=== PATIENT | female | born 1960 | race African-American/Black ===

== ENCOUNTER 2018-07-16 07:46 | Day surgery (SDC) | payer OTHER ==
[2018-07-13 10:28] LABS: Hematocrit 22.5 % (36.0-45.0)
[2018-07-16] MEDS ORDERED: NA CHLORIDE 0.9% 250 ML ONE ×2 (08:26→11:56)
[2018-07-16 09:11] VITALS: BMI 36.1
[2018-07-16] MEDS ORDERED: FUROSEMIDE 40 MG/4 ML VIAL ONE (11:34)
[2018-07-16 14:26] VITALS: BP 173/70; TEMP 98.2; O2SAT 98
== END 2018-07-16 15:43 | disposition home or self-care (01) ==
LOC: DS 07:46
PROVIDERS: ATTEND Internal Medicine Nephrology
DX: N18.6 End stage renal disease (principal); D63.1 Anemia in chronic kidney disease; Z99.2 Dependence on renal dialysis
CPT/HCPCS: 36415 ×2; 36430; 85014 ×2; 85018 ×2; 86850; 86900; 86901; P9016 ×2

== ENCOUNTER 2021-07-28 11:29 | Day surgery (SDC) | payer OTHER ==
[2021-07-28] MEDS ORDERED: NA CHLORIDE 0.9% 250 ML ONE (14:02)
[2021-07-28 14:33] VITALS: BMI 36.1
[2021-07-28 17:04] VITALS: BP 163/78; TEMP 98; O2SAT 98
[2021-07-28 17:36] LABS: Hematocrit 24.2 % (36.0-45.0)
== END 2021-07-28 17:02 | disposition home or self-care (01) ==
LOC: DS 11:29 → EDSTATUS 13:33 → DS 17:02
PROVIDERS: ATTEND Internal Medicine Nephrology
DX: D64.9 Anemia, unspecified (principal)
CPT/HCPCS: 36415; 86900; 86850; 86901; 85018; 85014; 36430; P9016; J7050

== ENCOUNTER 2021-10-28 18:26 | Emergency (ER) | payer OTHER ==
--- OUTSIDE RECORDS SUMMARY | 2021-10-28 18:30 | XMS REPORT | Continuity of Care Document ---
:1960 Author Organization [facility] t Address [address] [place] [address] Care Team Providers Name Role Phone Pcp, Does Not Have A Primary Care Physician SALENA Attending Clinician Unavailable ANDRY Attending Clinician Unavailable Andry HERNANDEZ Attending Clinician Doctor Unassigned, Name Attending Clinician Unavailable LONDON Attending Clinician Unavailable MD LONDON Attending Clinician Unavailable RIKA Attending Clinician Unavailable DENI Attending Clinician Unavailable MD GITA Attending Clinician Unavailable JOANA Attending Clinician Unavailable ASHLEIGH_Zhao Attending Clinician Unavailable MD JOANA E. Attending Clinician Unavailable Nick_Vicente Attending Clinician Unavailable SALENA Admitting Clinician Unavailable ANDRY Admitting Clinician Unavailable LONDON Admitting Clinician Unavailable MD LONDON Admitting Clinician Unavailable DENI Admitting Clinician Unavailable MD GITA Admitting Clinician Unavailable JOANA Admitting Clinician Unavailable ASHLEIGH_G Admitting Clinician Unavailable ELIZABETH ARRIAZA Admitting Clinician Unavailable Nick_Vicente Admitting Clinician Unavailable Payers Payer Name Policy Type Policy Number Effective Date Expiration Date S vignesh [facility] MEDICARE [id number] COMPLETE (MEDICARE REPLACEMENT HMO) SANDRA/MAYTE [id number] 2021 MEDICARE ADVANTAGE 00:00:00 [place]: [id number] [employer] - 00:00:00 [facility] MEDICARE B[place]: [id number] 2007 [employer] 00:00:00 Problems Condition Condition Condition Status Onset Resolution Last Treating Co mments Source Name Details Category Date Date Treatment Clinician Date Body mass Body Mass Problem Active [facility] index 30+ Index 30+ 2-02 da - obesity - 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 h 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 Umbilical Umbilical Problem Active [facility] hernia Hernia 202 da 00:[facility]: [facility] Anemia Anemia Problem Active 2018-11 [place] 1 da 00:00: [facility] 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 00 Medi jalil (end-stage (end-stage Br anch renal renal disease) disease) Dyslipidem Dyslipidem Disease Active U nivers ia ia 11-14 ity of 00:00: [place] 00 Medical Branch Essential Essential Disease Active Uni vers hypertensi hypertensi 11-14 it y of on on 00:00: [place] 00 [facility] Pulmonary Pulmonary Problem Active 2015-11 [facility] edema Edema 11-14 da 00:00: [facility] Renal Renal Problem Active [place] failure Failure da syndrome Syndrome Medica l Group Perichondr Perichondr Problem Active M [facility] itis of itis of [facility] Otitis Otitis Problem Active [facility] externa Extern[facility] Tinnitus Tinnitus Problem Active [facility] Otalgia Otalgia Problem Active [facility] Hearing Hearing Problem Active [place] loss [facility] Hyperlipid Hyperlipid Problem Active [facility] emia emia da [facility] 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 da [facility] Hypertensi Hypertensi Problem Active [facility] ve renal ve Renal da failure Failure [facility] Chronic Chronic Problem Active [facility] kidney Kidney da disease Disease [facility] Heart Heart Problem Active [facility] murmur Murmur da [facility] Hemodialys Hemodialys Problem Active Mimi babcock is is da [facility] Multiple Multiple Problem Active [place] [facility] complicati Complicati da ons due to ons Due to [facility] type 2 Type 2 al diabetes Diabetes Health mellitus Mellitus Outrea c h Program Allergies, Adverse Reactions, Alerts Allergy Allergy Status Severity Reaction(s) Onset Inactive Treating Comm ents Source Name Type Date Date Clinician CEFTRIAX DRUG Active High Anaphylaxis 2019-0 Uni vers ONE INGREDI 05-07 ity of 00:00: [place] 00 Medical Branch Ceftriax Propensi Active Anaphylaxis 2019-0 U nivers one ty to 05-07 ity of adverse 00:00: [place] reaction 00 Medical s Branch HEPARIN DRUG Active Rash Univers INGREDI 11-14 ity of 00:00: [place] 00 Medical Branch Heparin Propensi Active Other - See Sweats Un payal ty to comments 11-14 ity of adverse 00:00: [place] reaction 00 Medical s Branch Heparin Allergy Active [place] to da [facility] Medical e Group Social History Social Habit Start Date Stop Date Quantity Comments Source Exposure to Not sure [facility] SARS-CoV-2 (event) Medica l Branch Tobacco use and 2017-11-14 2017-11-14 Never used [facility] exposure 00:00:00 00:00:00 Medical Branch Sex Ass[birth year] At [birth year] [facility] 00:00:00 00:00:00 Medical Branch Smoking Status Start Date Stop Date Source Never Smoker [facility] Medications Ordered Filled Start Stop Current Ordering Indication Dosage Frequency Signature Comments Components Source Medication Medication Date Date Medication? Clinician (SIG) Name Name RADHA Yes [id number] INJECT Unive rs SOLOSTAR 6- 40-50 ity of U-300 00:00: UNITS [place] INSULIN 300 00 UNDER THE Med ical unit/mL SKIN Branch (1.5 mL) DAILY. InPn KARIME Yes [id number] INJECT Unive rs SOLOSTAR 6-27 40-50 ity of U-300 00:00: UNITS [place] INSULIN 300 00 UNDER THE Med ical unit/mL SKIN Branch (1.5 mL) DAILY. InPn KARIME Yes [id number] INJECT Unive rs SOLOSTAR 05-02 40-50 ity of U-300 00:00: UNITS [place] INSULIN 300 00 UNDER THE Med ical unit/mL SKIN Branch (1.5 mL) DAILY. InPn conjugated Yes .9mg Take 0.9 Uni vers estrogens 1-09 mg by ity of (PREMARIN) 14:35: mouth [place] 0.9 mg 39 daily. Medical tablet Branch Cholecalcif Yes Take by Un payal jac, 1-09 mouth ity of Vitamin D3, 14:35: [place]. [place] (VITAMIN 39 Medical D3) 5,000 Branch unit tablet carvedilol Yes 50mg Take 50 mg U nivers 25 mg 1-09 by mouth 2 ity of tablet 14:35: (two) [place] 39 times Medical daily with Branch meals. NIFEdipine Yes 90mg Take 90 mg U nivers XL 90 mg 24 1-09 by mouth ity of hr tablet 14:35: daily. [place] [address] Medical Branch travoprost Yes 1[drp] Place 1 Un payal (TRAVATAN 1-09 Drop in ity of Z) 0.004 % 14:35: left eye [place] as ophthalmic 39 at Medical solution bedtime. Branch sevelamer Yes 1600mg Take 1,600 Univers 800 mg 1-09 mg by ity of tablet 14:35: mouth 3 [place] 39 (three) Medical times Branch daily with meals. rosuvastati Yes 20mg Take 20 mg Univers n (CRESTOR) 1-09 by mouth ity of 20 mg 14:35: at [place] tablet 39 bedtime. Medical Branch esomeprazol Yes 40mg Take 40 mg Univers e 40 mg 1-09 by mouth ity of capsule 14:35: daily [place] 39 breakfast. Medical Branch conjugated Yes .9mg Take 0.9 Uni vers estrogens 1-09 mg by ity of (PREMARIN) 14:35: mouth [place] 0.9 mg 39 daily. Medical tablet Branch Cholecalcif Yes Take by Un payal jac, 1-09 mouth ity of Vitamin D3, 14:35: [place]. [place] (VITAMIN 39 Medical D3) 5,000 Branch unit tablet carvedilol Yes 50mg Take 50 mg U nivers 25 mg 1-09 by mouth 2 ity of tablet 14:35: (two) [place] 39 times Medical daily with Branch meals. NIFEdipine 2017-0 Yes 90mg Take 90 mg U nivers XL 90 mg 24 1-09 by mouth ity of hr tablet 14:35: daily. [place] [address] Medical Branch travoprost 0 Yes 1[drp] Place 1 Un payal (TRAVATAN 1-09 Drop in ity of Z) 0.004 % 14:35: left eye [place] as ophthalmic 39 at Medical solution bedtime. Branch sevelamer 2017-0 Yes 1600mg Take 1,600 Univers 800 mg 1-09 mg by ity of tablet 14:35: mouth 3 [place] [address] (three) Medical times Branch daily with meals. rosuvastati 2017-0 Yes 20mg Take 20 mg Univers n (CRESTOR) 1-09 by mouth ity of 20 mg 14:35: at [place] tablet 39 bedtime. Medical Branch esomeprazol 0 Yes 40mg Take 40 mg Univers e 40 mg 1-09 by mouth ity of capsule 14:35: daily [place] 39 breakfast. Medical Branch conjugated 2017-0 Yes .9mg Take 0.9 Uni vers estrogens 1-09 mg by ity of (PREMARIN) 14:35: mouth [place] 0.9 mg 39 daily. Medical tablet Branch Cholecalcif 0 Yes Take by Un payal jac, 1-09 mouth ity of Vitamin D3, 14:35: [place]. [place] (VITAMIN 39 Medical D3) 5,000 Branch unit tablet carvedilol Yes 50mg Take 50 mg U nivers 25 mg 1-09 by mouth 2 ity of tablet 14:35: (two) [place] 39 times Medical daily with Branch meals. NIFEdipine 2017-0 Yes 90mg Take 90 mg U nivers XL 90 mg 24 1-09 by mouth ity of hr tablet 14:35: daily. [place] [address] Medical Branch travoprost 0 Yes 1[drp] Place 1 Un payal (TRAVATAN 1-09 Drop in ity of Z) 0.004 % 14:35: left eye [place] as ophthalmic 39 at Medical solution bedtime. Branch sevelamer 2017-0 Yes 1600mg Take 1,600 Univers 800 mg 1-09 mg by ity of tablet 14:35: mouth 3 [place] [address] (three) Medical times Branch daily with meals. rosuvastati 2018-0 Yes 20mg Take 20 mg Univers n (CRESTOR) 11-14 by mouth ity of 20 mg 14:35: at [place] tablet 39 bedtime. Medical Branch esomeprazol 0 Yes 40mg Take 40 mg Univers e 40 mg 11-14 by mouth ity of capsule 14:35: daily [place] 39 breakfast. Medical Branch BD BD No BD [place] Ultra-Fine Ultra-Fine Ultra-Fine da Mini Pen Mini Pen Mini Pen Epi scop Needle 31 Needle 31 Needle 31 al gauge x gauge x gauge x Health 01/19" 01/19" 01/19" Outreac h Program BD BD No BD [place] Ultra-Fine Ultra-Fine Ultra-Fine da Original Original Original Epi scop Pen Needle Pen Needle Pen Needle al 29 gauge x 29 gauge x 29 gauge x Health 11/07" 11/07" 11/07" Outreac h Program carvedilol carvedilol No carvedilol [place] 25 mg 25 mg 25 mg da tablet TAKE tablet TAKE tablet [facility] 2 TABLETS 2 TABLETS TAKE 2 al BY MOUTH BY MOUTH TABLETS BY H ealth TWICE A DAY TWICE A DAY MOUTH Outreac TWICE A h DAY Program cholecalcif cholecalcif No cholecalci [place] jac jac ferol da (vitamin (vitamin (vitamin Epi scop D3) 1,250 D3) 1,250 D3) 1,250 al mcg (50,000 mcg (50,000 mcg H ealth unit) unit) (50,000 Outreac capsule capsule unit) h TAKE 1 TAKE 1 capsule Program CAPSULE BY CAPSULE BY TAKE 1 MOUTH ONCE MOUTH ONCE CAPSULE BY A WEEK FOR A WEEK FOR MOUTH ONCE 16 WEEKS 16 WEEKS A WEEK FOR 16 WEEKS Colace 100 Colace 100 No 1capsul Q1D Colace 100 [place] mg capsule mg capsule e(s) mg capsule da Take 1 Take 1 Take 1 [facility] capsule capsule capsule al every day every day every day Health by oral by oral by oral Outrea c route. route. route. h Program doxazosin 2 doxazosin 2 No doxazosin [place] mg tablet mg tablet 2 mg da TAKE 1 TAKE 1 tablet [facility] TABLET BY TABLET BY TAKE 1 al MOUTH TWICE MOUTH TWICE TABLET BY Health A DAY A DAY MOUTH Outreac TWICE A h DAY Program gabapentin gabapentin No gabapentin [facility] 100 mg 100 mg 100 mg da capsule capsule capsule [facility] TAKE 1 TAKE 1 TAKE 1 al CAPSULE BY CAPSULE BY CAPSULE BY Health MOUTH TWICE MOUTH TWICE MOUTH Outreac A DAY A DAY TWICE A h DAY Program isosorbide isosorbide No isosorbide [place] mononitrate mononitrate mononitrat da ER 60 mg ER 60 mg e ER 60 mg E [facility] tablet,exte tablet,exte tablet,ext al nded nded ended Health release 24 release 24 release 24 Outreac hr TAKE 1 hr TAKE 1 hr TAKE 1 h TABLET BY TABLET BY TABLET BY Program MOUTH EVERY MOUTH EVERY MOUTH DAY DAY EVERY DAY isosorbide isosorbide No isosorbide [place] mononitrate mononitrate mononitrat da er 60 mg er 60 mg e er 60 mg E [facility]isc[facility] tb24 One tb24 One tb24 One al tab daily tab daily tab daily Health Outreac h Program nifedipine nifedipine No nifedipine [place] ER 90 mg ER 90 mg ER 90 mg da tablet,exte tablet,exte tablet,ext [facility] nded nded ended al release release release Health TAKE 1 TAKE 1 TAKE 1 Outreac TABLET BY TABLET BY TABLET BY h MOUTH TWICE MOUTH TWICE MOUTH Program A DAY A DAY TWICE A DAY omeprazole omeprazole No omeprazole [place] 40 mg 40 mg 40 mg da capsule,del capsule,del capsule,de [facility] ayed ayed layed al release release release Health TAKE 1 TAKE 1 TAKE 1 Outreac CAPSULE BY CAPSULE BY CAPSULE BY h MOUTH EVERY MOUTH EVERY MOUTH Program DAY DAY EVERY DAY omeprazole omeprazole No omeprazole [place] 40 mg cpdr 40 mg cpdr 40 mg cpdr da [facility] Program Premarin Premarin No Premarin [facility] 0.9 mg 0.9 mg 0.9 mg da tablet TAKE tablet TAKE tablet [facility] 1 TABLET BY 1 TABLET BY TAKE 1 al MOUTH ONCE MOUTH ONCE TABLET BY Health DAILY DAILY MOUTH ONCE Outreac DAILY h Program ramipril 10 ramipril 10 No ramipril [place] mg caps One mg caps One 10 mg caps da tab at tab at One tab at [facility] bedtime bedtime bedtime al Health Outreac h Program ramipril 10 ramipril 10 No ramipril [place] mg capsule mg capsule 10 mg da TAKE 1 TAKE 1 capsule [facility] CAPSULE BY CAPSULE BY TAKE 1 a l MOUTH AT MOUTH AT CAPSULE BY H ealth BEDTIME BEDTIME MOUTH AT Outre ac BEDTIME h Program Cesia-Michael Cesia-Michael No Cesia-Michael [place] 0.8 mg 0.8 mg 0.8 mg da tablet TAKE tablet TAKE tablet [facility] 1 TABLET BY 1 TABLET BY TAKE 1 al MOUTH EVERY MOUTH EVERY TABLET BY Health DAY DAY MOUTH Outreac EVERY DAY h Program rosuvastati rosuvastati No rosuvastat [place] n 20 mg n 20 mg in 20 mg da tablet TAKE tablet TAKE tablet [facility] 1 TABLET BY 1 TABLET BY TAKE 1 al MOUTH MOUTH TABLET BY Health EVERYDAY AT EVERYDAY AT MOUTH Outreac BEDTIME BEDTIME EVERYDAY h AT BEDTIME Program sevelamer sevelamer No sevelamer [place] carbonate carbonate carbonate da 800 mg 800 mg 800 mg [facility] tablet TAKE tablet TAKE tablet al 4 TABLETS 4 TABLETS TAKE 4 Hea lth BY MOUTH 3 BY MOUTH 3 TABLETS BY Outreac TIMES A DAY TIMES A DAY MOUTH 3 h WITH MEALS WITH MEALS TIMES A Program AND TAKE 1 AND TAKE 1 DAY WITH TABLET BY TABLET BY MEALS AND MOUTH TWICE MOUTH TWICE TAKE 1 A DAY WITH A DAY WITH TABLET BY SNACKS SNACKS MOUTH TWICE A DAY WITH SNACKS sulfamethox sulfamethox No sulfametho [place] azole 800 azole 800 xazole 800 da mg-trimetho mg-trimetho mg-trimeth [facility] prim 160 mg prim 160 mg oprim 160 al tablet TAKE tablet TAKE mg tablet Health 1 TABLET BY 1 TABLET BY TAKE 1 Outreac MOUTH TWICE MOUTH TWICE TABLET BY h A DAY A DAY MOUTH Program TWICE A DAY Toualbao Toualbao No Toujeo [place] SoloStar SoloStar SoloStar da U-300 U-300 U-300 [facility] Insulin 300 Insulin 300 Insulin al unit/mL unit/mL 300 Health (1.5 mL) (1.5 mL) unit/mL Outr eac subcutaneou subcutaneou (1.5 mL) h s pen s pen subcutaneo Program INJECT 40 INJECT 40 us pen 50 UNITS 50 UNITS INJECT 40 SUBQUTANEOU SUBQUTANEOU 50 UNITS SLY AT SLY AT SUBQUTANEO BEDTIME BEDTIME USLY AT BEDTIME travoprost travoprost No travoprost [place] 0.004 % eye 0.004 % eye 0.004 % da drops PUT 1 drops PUT 1 eye drops [facility] DROP INTO DROP INTO PUT 1 DROP al LEFT EYE AT LEFT EYE AT INTO LEFT Health BEDTIME BEDTIME EYE AT Outreac BEDTIME h Program Vitamin D3 Vitamin D3 No Vitamin D3 [place] 5000 iu one 5000 iu one 5000 iu da tab daily tab daily one tab [facility] daily al Health Outreac h Program Zantac 75 Zantac 75 No Zantac 75 [place] Every 8 Every 8 Every 8 da hours as hours as hours as Epi scop needed needed needed al Health Outreac h Program carvedilol carvedilol No carvedilol [place] 25 mg 25 mg 25 mg da tablet TAKE tablet TAKE tablet Medical 2 TABLETS 2 TABLETS TAKE 2 Mervat up BY MOUTH BY MOUTH TABLETS BY TWICE A DAY TWICE A DAY MOUTH TWICE A DAY DOK 100 mg DOK 100 mg No DOK 100 mg [place] capsule capsule capsule da TAKE 1 TAKE 1 TAKE 1 Medical CAPSULE BY CAPSULE BY CAPSULE BY Group MOUTH TWICE MOUTH TWICE MOUTH DAILY FOR 7 DAILY FOR 7 TWICE DAYS DAYS DAILY FOR 7 DAYS doxazosin 2 doxazosin 2 No doxazosin [place] mg tablet mg tablet 2 mg da TAKE 1 TAKE 1 tablet Medical TABLET BY TABLET BY TAKE 1 Mervat up MOUTH TWICE MOUTH TWICE TABLET BY A DAY A DAY MOUTH TWICE A DAY isosorbide isosorbide No 1 Q1D isosorbide [place] mononitrate mononitrate mononitrat da ER 60 mg ER 60 mg e ER 60 mg M edical tablet,exte tablet,exte tablet,ext Group nded nded ended release 24 release 24 release 24 hr Take 1 hr Take 1 hr Take 1 tablet tablet tablet every day every day every day by oral by oral by oral route. route. route. nifedipine nifedipine No nifedipine [place] ER 90 mg ER 90 mg ER 90 mg da tablet,exte tablet,exte tablet,ext Medical nded nded ended Group release release release TAKE 1 TAKE 1 TAKE 1 TABLET BY TABLET BY TABLET BY MOUTH TWICE MOUTH TWICE MOUTH A DAY A DAY TWICE A DAY omeprazole omeprazole No omeprazole [place] 40 mg 40 mg 40 mg da capsule,del capsule,del capsule,de Medical ayed ayed layed Group release release release TAKE 1 TAKE 1 TAKE 1 CAPSULE BY CAPSULE BY CAPSULE BY MOUTH EVERY MOUTH EVERY MOUTH DAY DAY EVERY DAY Premarin Premarin No Premarin [facility] 0.9 mg 0.9 mg 0.9 mg da tablet TAKE tablet TAKE tablet Medical 1 TABLET BY 1 TABLET BY TAKE 1 Group MOUTH ONCE MOUTH ONCE TABLET BY DAILY DAILY MOUTH ONCE DAILY ramipril 10 ramipril 10 No ramipril [place] mg capsule mg capsule 10 mg da TAKE 1 TAKE 1 capsule Medical CAPSULE BY CAPSULE BY TAKE 1 G roup MOUTH AT MOUTH AT CAPSULE BY BEDTIME BEDTIME MOUTH AT BEDTIME Cesia-Michael Cesia-Michael No Cesia-Michael [place] 0.8 mg 0.8 mg 0.8 mg da tablet TAKE tablet TAKE tablet Medical 1 TABLET BY 1 TABLET BY TAKE 1 Group MOUTH EVERY MOUTH EVERY TABLET BY DAY DAY MOUTH EVERY DAY Renvela 800 Renvela 800 No 1 TID Renvela [place] mg tablet mg tablet 800 mg da Take 1 Take 1 tablet Medical tablet 3 tablet 3 Take 1 Group times a day times a day tablet 3 by oral by oral times a route. route. day by oral route. rosuvastati rosuvastati No rosuvastat [place] n 20 mg n 20 mg in 20 mg da tablet TAKE tablet TAKE tablet Medical 1 TABLET BY 1 TABLET BY TAKE 1 Group MOUTH MOUTH TABLET BY EVERYDAY AT EVERYDAY AT MOUTH BEDTIME BEDTIME EVERYDAY AT BEDTIME Toujeo Toujeo No Toujeo [place] SoloStar SoloStar SoloStar da U-300 U-300 U-300 Medical Insulin 300 Insulin 300 Insulin Group unit/mL unit/mL 300 (1.5 mL) (1.5 mL) unit/mL subcutaneou subcutaneou (1.5 mL) s pen s pen subcutaneo INJECT 40 INJECT 40 us pen 50 UNITS 50 UNITS INJECT 40 SUBQUTANEOU SUBQUTANEOU 50 UNITS SLY AT SLY AT SUBQUTANEO BEDTIME BEDTIME USLY AT BEDTIME Travatan Z Travatan Z No Travatan Z [place] 0.004 % eye 0.004 % eye 0.004 % da drops drops eye drops Medical INSTILL 1 INSTILL 1 INSTILL 1 Group DROP INTO DROP INTO DROP INTO AFFECTED AFFECTED AFFECTED EYE(S) BY EYE(S) BY EYE(S) BY OPHTHALMIC OPHTHALMIC OPHTHALMIC ROUTE ONCE ROUTE ONCE ROUTE ONCE DAILY INTHE DAILY INTHE DAILY EVENING EVENING INTHE EVENING Immunizations Ordered Immunization Filled Immunization Date Status Commen ts Source Name Name pneumococcal pneumococcal 2020-11-23 Completed [place] polysaccharide PPV23 polysaccharide PPV23 00:00:00 [facility] influenza, influenza, 2020-08-06 Completed [place] injectable, injectable, 00:00:00 [facility] quadrivalent quadrivalent Outreach P rogram influenza, influenza, 2019-08-06 Completed [place] injectable, injectable, 00:00:00 [facility] quadrivalent quadrivalent Outreach P rogram Tdap Tdap 2016-11-06 Completed [place] 00:00:00 [facility] Influenza Virus 2015-08-03 Completed Universit y of Vaccine 00:00:00 [facility] Influenza Virus 2015-08-03 Completed Universit y of Vaccine 00:00:00 [facility] Influenza Virus 2015-08-03 Completed Universit y of Vaccine 00:00:00 [facility] Influenza Virus 2014-07-30 Completed Universit y of Vaccine 00:00:00 [facility] Influenza Virus 2014-07-30 Completed Universit y of Vaccine 00:00:00 [facility] Influenza Virus 2014-07-30 Completed Universit y of Vaccine 00:00:00 [facility] Hep B, Adol or Pedi 2013-12-11 Completed Unive rsity of Dosage 00:00:00 [facility] Hep B, Adol or Pedi 2013-12-11 Completed Unive rsity of Dosage 00:00:00 [facility] Hep B, Adol or Pedi 2013-12-11 Completed Unive rsity of Dosage 00:00:00 [facility] Influenza Virus 2013-07-19 Completed Universit y of Vaccine 00:00:00 [facility] Influenza Virus 2013-07-19 Completed Universit y of Vaccine 00:00:00 [facility] Influenza Virus 2013-07-19 Completed Universit y of Vaccine 00:00:00 [facility] Influenza Virus 2012-07-09 Completed Universit y of Vaccine 00:00:00 [facility] Influenza Virus 2012-07-09 Completed Universit y of Vaccine 00:00:00 [facility] Influenza Virus 2012-07-09 Completed Universit y of Vaccine 00:00:00 [facility] Influenza Virus 2011-07-29 Completed Universit y of Vaccine 00:00:00 [facility] Influenza Virus 2011-07-29 Completed Universit y of Vaccine 00:00:00 [facility] Influenza Virus 2011-07-29 Completed Universit y of Vaccine 00:00:00 [facility] Pneumococcal 13 2011-06-22 Completed Universit y of Conjugate, PCV13 00:00:00 [facility] dical (Prevnar 13) Branch PPD (TB) 2011-06-22 Completed University of 00:00:00 [facility] Pneumococcal 13 2011-06-22 Completed Universit y of Conjugate, PCV13 00:00:00 [facility] dical (Prevnar 13) Branch PPD (TB) 2011-06-22 Completed University 00:00:00 [facility] Pneumococcal 13 2011-06-22 Completed Universit y of Conjugate, PCV13 00:00:00 [facility] dical (Prevnar 13) Branch PPD (TB) 2011-06-22 Completed University 00:00:00 [facility] Vital Signs Vital Name Observation Time Observation Value Comments Source Systolic blood 2021-09-13 17:06:00 157 mm[Hg] [facility] pressure [facility] Diastolic blood 2021-09-13 17:06:00 80 mm[Hg] [facility] pressure [facility] Heart rate 2021-09-13 17:04:00 63 /min [facility] Body weight 2021-09-13 17:04:00 90.266 kg [facility] Oxygen saturation 2021-09-13 17:04:00 96 /min [facility] in Arterial blood Medical Br anch by Pulse oximetry Body Weight 2021-04-29 00:00:00 207 [lb_av] [facility] BP Diastolic 2021-04-29 00:00:00 70 mm[Hg] [facility] Height 2021-04-29 00:00:00 63 [in_i] [facility] BMI (Body Mass 2021-04-29 00:00:00 36.7 kg/m2 [facility] nursing tech Medical Index) Group BP Systolic 2021-04-29 00:00:00 130 mm[Hg] [facility] BP Diastolic 2020-12-31 00:00:00 68 mm[Hg] [facility] Height 2020-12-31 00:00:00 63 [in_i] [facility] BMI (Body Mass 2020-12-31 00:00:00 37.6 kg/m2 [facility] Medical Index) Group BP Systolic 2020-12-31 00:00:00 136 mm[Hg] [facility] Body Weight 2020-12-31 00:00:00 212 [lb_av] [facility] BP Diastolic 2020-12-08 00:00:00 72 mm[Hg] [place] [facility] Height 2020-12-08 00:00:00 63 [in_i] [place] [facility] BMI (Body Mass 2020-12-08 00:00:00 37 kg/m2 [facility] Index) [facility] Outreach [facility] BP Systolic 2020-12-08 00:00:00 144 mm[Hg] [place] [facility] Body Weight 2020-12-08 00:00:00 3344 [oz_av] [place] [facility] BP Diastolic 2019-09-17 00:00:00 80 mm[Hg] [place] [facility] Height 2019-09-17 00:00:00 63 [in_i] [place] [facility] BMI (Body Mass 2019-09-17 00:00:00 35.3 kg/m2 [facility] Index) [facility] Outreach Program BP Systolic 2019-09-17 00:00:00 150 mm[Hg] [place] [facility] Body Weight 2019-09-17 00:00:00 199 [lb_av] [place] [facility] BP Diastolic 2019-09-10 00:00:00 76 mm[Hg] [place] [facility] Height 2019-09-10 00:00:00 63 [in_i] [place] [facility] BMI (Body Mass 2019-09-10 00:00:00 35.6 kg/m2 [facility] Index) [facility] Outreach Program BP Systolic 2019-09-10 00:00:00 144 mm[Hg] [place] [facility] Body Weight 2019-09-10 00:00:00 200.9 [lb_av] [place] [facility] Procedures Procedure Date / Time Performing Clinician Source Performed TRANSTHORACIC ECHO (TTE) 2021-09-21 19:32:00 Andry Jose [facility] CONSENT/REFUSAL FOR 2021-09-21 19:01:46 Doctor Unassigned, No [facility] DIAGNOSIS AND TREATMENT Name [facility] ASSIGNMENT OF BENEFITS 2021-09-21 19:01:15 Doctor Unassigned, No [facility] HB ECG ROUTINE & RHYTHM 2021-09-13 17:08:28 Jose Lester [facility] [place] EXTERNAL PROVIDER - ADC 2021-08-12 05:01:00 Doctor Unassigned, N o [facility] REFERRAL Name [facility] MR, 2020-12-31 00:00:00 [place] [facility] cholangiopancreatogram, Group w/ contrast unlisted imaging order 2020-12-15 00:00:00 [facility] MAMMO, screening, 2020-12-08 00:00:00 [place] [facility] digital, bilateral [facility] CT, abdomen + pelvis, w/ 2020-12-08 00:00:00 [place] [facility] contrast [facility] MAMMO, screening, 2019-09-10 00:00:00 [place] [facility] digital, bilateral [facility] DEXA, axial skeleton 2019-09-10 00:00:00 [place] [facility] Total Hysterectomy 2009-11-06 00:00:00 [place] [facility] Section 1988-11-06 00:00:00 [place] [facility] Graft of Skin to Skin [facility] Plan of Care Planned Activity Planned Date Details Comments Source Diagnostic Test 2020-12-08 HbA1c (hemoglobin [place] [facility] Pending 00:00:00 A1c), blood [code Health Out reach = HbA1c Program (hemoglobin A1c), blood] Diagnostic Test 2020-12-08 lipid panel, serum [facility] Pending 00:00:00 [code = lipid Health Outreac h panel, serum] Program Diagnostic Test 2020-12-08 TSH + free T4, [place] [facility] Pending 00:00:00 serum [code = TSH Health Out reach + free T4, serum] Program Diagnostic Test 2020-12-08 hepatic function [place] [facility] Pending 00:00:00 panel, serum [code Health O[facility] [place] = hepatic function Program panel, serum] Diagnostic Test 2020-12-08 CBC w/ auto diff [place] [facility] Pending 00:00:00 [code = CBC w/ Health Outrea ch auto diff] Program Encounters Start End Encounter Admission Attending Care Care Encounter Source Date/Time Date/Time Type Type Clinicians Facility Department ID 2021-10-27 2021-10-27 Outpatient THOR_OLYA VALENCIA [facility] [id number] [place] 03:20:00 03:20:00 _[facility] 2021-09-21 2021-09-21 [facility] [id number] [facility] 13:00:00 23:59:00 JOSE mittal [facility] 2021-09-21 2021-09-21 Hospital [facility] [id number] [facility] 13:00:00 23:59:00 Encounter Jose WISE [id number] ity of [place] [id number] [facility] [id number] [address] 2021-09-13 2021-09-13 [facility] [id number] [facility] 11:00:00 11:27:51 JOSE mittal [facility] 2021-09-13 2021-09-13 Office [facility] [id number] Univers 10:48:07 11:27:51 Visit Jose WISE [id number] [facility] [id number] [facility] [id number] [place] [id number] [facility] 2021-08-12 2021-08-12 Orders Doctor SAL [id number] Univers 00:00:00 00:00:00 Only Unassigned, MCKINLEY [id number] [place]y of [place] [facility] [id number] Nelson as [phone] Medi jalil 009 Branch 2021-08-10 2021-08-10 Outpatient [facility] [id number] [place] 00:00:00 00:00:[address] 2021-07-23 2021-07-23 Outpatient TRISTON CALLAHAN [facility] [id number] [place] 00:00:00 00:00:[address] 2021-07-22 2021-07-22 Outpatient RIKA [facility] [id number] [place] 00:00:00 00:00:00 ERIC [address] 2021-07-22 2021-07-22 Outpatient [facility] [id number] [place] 00:00:00 00:00:[address] 2021-07-22 2021-07-22 Outpatient TRISTON CALLAHAN [facility] [id number] [place] 00:00:00 00:00:[address] 2021-06-17 2021-06-17 Outpatient RIKA [facility] [id number] [place] 00:00:00 00:00:00 ERIC [address] 2021-06-03 2021-06-05 Outpatient DENI, [facility] [id number] [place] 00:00:00 00:00:00 MARISA [address] 2021-05-28 2021-05-28 Outpatient JOANA, [facility] 021 [id number] [place] 00:00:00 00:00:00 ANTONIO [address] 2021-05-25 2021-05-25 Outpatient LUISCAMILA, [facility] [id number] [place] 00:00:00 00:00:00 ANTONIO [address] 2021-04-29 2021-04-29 Outpatient IHDE_G [facility] MM[facility] [id number] [place] 03:46:00 03:46:00 0624 [facility] 2021-04-29 2021-04-29 Outpatient IHDE_G MMG MMG [id number] [place] 03:46:00 03:46:00 0625 [facility] 2021-04-29 2021-04-29 Yadiel MMG [place] - [id number] Mimi babcock 00:00:00 00:00:00 Vic Hutchinson MD: Medical Medica l [address] [facility] [address], [place] [address] , Ph. [phone] 2021-04-01 2021-04-01 Outpatient [facility] [id number] [place] 00:00:00 00:00:[address] 2021-03-15 2021-03-15 Outpatient OPPERMANN, [facility] 021 [id number] [place] 00:00:00 00:00:00 ANTONIO [address] 2021-03-11 2021-03-11 Outpatient OPPERMANN, [facility] [id number] [place] 00:00:00 00:00:00 ANTONIO [address] 2021-01-19 2021-01-19 Outpatient OPPERMANN, [facility] [id number] [id number] [place] 00:00:00 00:00:00 ANTONIO [address] 2021-01-03 2021-01-03 Outpatient IHDE_G MMG MMG [id number] [place] 12:42:00 12:42:00 0228 [facility] 2021-01-03 2021-01-03 Outpatient IHDE_G MMG MMG [id number] [place] 12:42:00 12:42:00 0623 [facility] 2020-12-31 2020-12-31 Outpatient IHDE_G MMG MMG [id number] [place] 12:21:00 12:21:00 0225 [facility] 2020-12-31 2020-12-31 Outpatient IHDE_G MMG MMG [id number] [place] 12:21:00 12:21:00 0226 [facility] 2020-12-31 2020-12-31 Yadiel MM [place] - [id number] [place] 00:00:00 00:00:00 Vic Hutchinson MD: Medical Medica [address], [place] [address] , Ph. [phone] 2020-12-15 2020-12-15 Outpatient IHDE_G MMG MMG [id number] [place] 05:36:00 05:36:00 0209 Medical Group 2020-12-15 2020-12-15 Yadiel [facility] [place] - [id number] M atagor 00:00:00 00:00:00 Vic uHtchinson MD: Medical Medica [address], [place] [address] , Ph. [phone] 2020-12-09 2020-12-09 Outpatient SHIMEK_OLYA [facility] [id number] [place] 10:13:00 10:13:00 _ANN [facility] 2020-12-09 2020-12-09 Outpatient SHIMEK_OLYA [facility] [id number] [place] 10:13:00 10:13:00 _ANN 0209 [facility] 2020-12-09 2020-12-09 Outpatient SHIMEK_OLYA [facility] [id number] [place] 10:13:00 10:13:00 _ANN 1119 [facility] 2020-12-08 2020-12-08 Outpatient SHIMEK_OLYA [facility] 68 [place] 12:33:00 12:33:00 _ANN 0202 [facility] 2020-12-08 2020-12-08 Olya VALENCIA [place] - [id number] [place] 00:00:00 00:00:00 Wiley Platt da WATCH AND CLOCK MAKER AND REPAIRER: 1700 [facility] [place] [address], [place], [place] 3 [facility] [address] h , Ph. Program 2020-03-25 2020-03-25 Outpatient SHIMEK_OLYA VALENCIA [facility] 68 [place] 04:35:00 04:35:00 _ANN 0914 [facility] 2019-09-17 2019-09-17 Olya VALENCIA [place] - [id number] [place] 00:00:00 00:00:00 Wiley Platt WATCH AND CLOCK MAKER AND REPAIRER: 1700 [facility] [place] [address], [place] [address], [place] [address] Progr am , Ph. 2019-09-10 2019-09-10 Olya VALENCIA [place] - [id number] [place] 00:00:00 00:00:00 Wiley Platt WATCH AND CLOCK MAKER AND REPAIRER: 1700 [facility] stephenie Serra, [facility] 1, [place] [address] Progr am , Ph. 2016-09-27 2016-09-27 Outpatient Raju_P MMG MMG [id number] [place] 03:16:00 03:16:00 0205 [facility] 2016-09-27 2016-09-27 Outpatient Raju_P MMG MMG [id number] [place] 03:16:00 03:16:00 0609 [facility] Results Test Description Test Time Test Comments Results Result Comments Source SARS-CoV-2 (COVID-19) RNA [Presence] in Respiratory sp ecimen by 2021-07-23 01:09:07 LAKHWINDER with probe detection Test Item Value Reference Range Interpretation Comme nts SARS-CoV-2 (COVID-19) RNA [Presence] in Respiratory Not detected No t-Detected specimen by LAKHWINDER with probe detection (test code = 64954-5) Whether patient is employed in a healthcare setting (test code = 55668-1) Whether the patient has symptoms related to condition of interest (test code = 88515-9) Patient was hospitalized because of this condition (test code = 43417-5) Whether the patient was admitted to intensive care unit (ICU) for condition of interest (test code = 92242-9) Whether patient resides in a congregate care setting (test code = 01237-9) SARS-CoV-2 (COVID-19) RNA [Presence] in Respiratory specimen by LAKHWINDER with probe [id number] 13:28:28 Test Item Value Reference Range Interpretation Comments SARS-CoV-2 (COVID-19) RNA Not detected Not-Detected [Presence] in Respiratory specimen by LAKHWINDER with probe detection (test code = 23976-7) Whether patient is employed in a healthcare setting (test code = 52138-1) Whether the patient has symptoms related to condition of interest (test code = 42566-9) Patient was hospitalized because of this condition (test code = 46036-7) Whether the patient was admitted to intensive care unit (ICU) for condition of interest (test code = 52370-2) Whether patient resides in a congregate care setting (test code = 08197-9) SARS-CoV-2 (COVID-19) RNA [Presence] in Respiratory specimen by LAKHWINDER with probe [id number] 17:27:41 Test Item Value Reference Range Interpretation Comments SARS-CoV-2 (COVID-19) RNA Not detected Not-Detected [Presence] in Respiratory specimen by LAKHWINDER with probe detection (test code = 32546-3) Whether patient is employed in a healthcare setting (test code = 91895-4) Whether the patient has symptoms related to condition of interest (test code = 24188-1) Patient was hospitalized because of this condition (test code = 69096-9) Whether the patient was admitted to intensive care unit (ICU) for condition of interest (test code = 55711-3) Whether patient resides in a congregate care setting (test code = 15976-0) Free T4 and TSH panel - Serum or [id number] 00:00:00 Test Item Value Reference Range Interpretation Comments Thyrotropin [Units/volume] in 0.968 uIU/mL 0.450-4.500 Serum or Plasma by Detection limit <= 0.005 mIU/L (test code = 06565-5) Thyroxine (T4) free 1.12 NG/dL 0.82-1.77 [Mass/volume] in Serum or Plasma (test code = 3024-7) [facility] W Auto Differential panel - Blood 2019-09-11 00:00:00 Test Item Value Reference Range Interpretation Comments Leukocytes [#/volume] in Blood 6.3 x10e3/uL 3.4-10.8 by Automated count (test code = 6690-2) Erythrocytes [#/volume] in 3.23 x10e6/uL 3.77-5.28 L Blood by Automated count (test code = 789-8) Hemoglobin [Mass/volume] in 8.2 g/dL 11.1-15.9 L Blood (test code = 718-7) Hematocrit [Volume Fraction] of 26.7 % 34.0-46.6 L Blood by Automated count (test code = 4544-3) Erythrocyte mean corpuscular 83 fL 79-97 volume [Entitic volume] by Automated count (test code = 787-2) Erythrocyte mean corpuscular 25.4 pg 26.6-33.0 L hemoglobin [Entitic mass] by Automated count (test code = 785-6) Erythrocyte mean corpuscular 30.7 g/dL 31.5-35.7 L hemoglobin concentration [Mass/volume] by Automated count (test code = 786-4) Erythrocyte distribution width 16.8 % 12.3-15.4 H [Ratio] by Automated count (test code = 788-0) Platelets [#/volume] in Blood 213 x10e3/uL 150-450 by Automated count (test code = 777-3) Neutrophils/100 leukocytes in 50 % not estab. Blood by Automated count (test code = 770-8) Lymphocytes/100 leukocytes in 34 % not estab. Blood by Automated count (test code = 736-9) Monocytes/100 leukocytes in 8 % not estab. Blood by Automated count (test code = 5905-5) Eosinophils/100 leukocytes in 7 % not estab. Blood by Automated count (test code = 713-8) Basophils/100 leukocytes in 1 % not estab. Blood by Automated count (test code = 706-2) immature cells (test code = fnp immature cells) Neutrophils [#/volume] in Blood 3.2 x10e3/uL 1.4-7.0 by Automated count (test code = 751-8) Lymphocytes [#/volume] in Blood 2.1 x10e3/uL 0.7-3.1 by Automated count (test code = 731-0) Monocytes [#/volume] in Blood 0.5 x10e3/uL 0.1-0.9 by Automated count (test code = 742-7) Eosinophils [#/volume] in Blood 0.5 x10e3/uL 0.0-0.4 H by Automated count (test code = 711-2) Basophils [#/volume] in Blood 0.0 x10e3/uL 0.0-0.2 by Automated count (test code = 704-7) immature granulocytes (test 0 % not estab. code = immature granulocytes) Granulocytes Immature 0.0 x10e3/uL 0.0-0.1 [#/volume] in Blood by Automated count (test code = 97145-1) Nucleated erythrocytes/100 fnp leukocytes [Ratio] in Blood by Automated count (test code = 45432-5) Morphology [interpretation] in fnp Blood Narrative (test code = 29029-6) [facility] - Serum or Plasma 2019-09-11 00:00:00 Test Item Value Reference Range Interpretation Comments Cholesterol [Mass/volume] in Serum 170 mg/dL 100-199 or Plasma (test code = 2093-3) Triglyceride [Mass/volume] in Serum 177 mg/dL 0-149 H or Plasma (test code = 2571-8) Cholesterol in HDL [Mass/volume] in 49 mg/dL >39 Serum or Plasma (test code = 2085-9) Cholesterol in VLDL [Mass/volume] 35 mg/dL 5-40 in Serum or Plasma by calculation (test code = 30350-1) Cholesterol in LDL [Mass/volume] in 86 mg/dL 0-99 Serum or Plasma by calculation (test code = 52880-3) comment: (test code = comment:) fnp [facility] 1999 panel - Serum or [id number] 00:00:00 Test Item Value Reference Range Interpretation Comments Protein [Mass/volume] in Serum or 7.0 g/dL 6.0-8.5 Plasma (test code = 2885-2) Albumin [Mass/volume] in Serum or 3.8 g/dL 3.5-5.5 Plasma (test code = 1751-7) Bilirubin.total [Mass/volume] in 0.2 mg/dL 0.0-1.2 Serum or Plasma (test code = 1974-2) Bilirubin.direct [Mass/volume] in 0.08 mg/dL 0.00-0.40 Serum or Plasma (test code = 1967-7) Alkaline phosphatase [Enzymatic 122 IU/L 39-117 H activity/volume] in Serum or Plasma (test code = 6768-6) Aspartate aminotransferase 22 IU/L 0-40 [Enzymatic activity/volume] in Serum or Plasma (test code = 1920-8) Alanine aminotransferase 17 IU/L 0-32 [Enzymatic activity/volume] in Serum or Plasma (test code = 1742-6) [facility]/Hemoglobin.total in [id number] 00:00:00 Test Item Value Reference Range Interpretation Comments Hemoglobin A1c/Hemoglobin.total in 8.4 % 4.8-5.6 H Blood (test code = 4548-4) Glucose mean value [Mass/volume] in 194 mg/dL Blood Estimated from glycated hemoglobin (test code = 76123-2) [facility], [id number] 00:00:00 Test Item Value Reference Range Interpretation Comments interpretation (test code = note interpretation) pdf image (test code = pdf image) . [facility] [id number] 00:00:00 Test Item Value Reference Range Interpretation Comments pdf image (test code = pdf not applicable image) [facility] TSH panel - Serum or [id number] 00:00:00 Test Item Value Reference Range Interpretation Comments Thyrotropin [Units/volume] in 0.968 uIU/mL 0.450-4.500 Serum or Plasma by Detection limit <= 0.005 mIU/L (test code = 37999-9) Thyroxine (T4) free 1.12 NG/dL 0.82-1.77 [Mass/volume] in Serum or Plasma (test code = 3024-7) [facility] Differential [facility] - Blood 2019-09-11 00:00:00 Test Item Value Reference Range Interpretation Comments Leukocytes [#/volume] in Blood 6.3 x10e3/uL 3.4-10.8 by Automated count (test code = 6690-2) Erythrocytes [#/volume] in 3.23 x10e6/uL 3.77-5.28 L Blood by Automated count (test code = 789-8) Hemoglobin [Mass/volume] in 8.2 g/dL 11.1-15.9 L Blood (test code = 718-7) Hematocrit [Volume Fraction] of 26.7 % 34.0-46.6 L Blood by Automated count (test code = 4544-3) Erythrocyte mean corpuscular 83 fL 79-97 volume [Entitic volume] by Automated count (test code = 787-2) Erythrocyte mean corpuscular 25.4 pg 26.6-33.0 L hemoglobin [Entitic mass] by Automated count (test code = 785-6) Erythrocyte mean corpuscular 30.7 g/dL 31.5-35.7 L hemoglobin concentration [Mass/volume] by Automated count (test code = 786-4) Erythrocyte distribution width 16.8 % 12.3-15.4 H [Ratio] by Automated count (test code = 788-0) Platelets [#/volume] in Blood 213 x10e3/uL 150-450 by Automated count (test code = 777-3) Neutrophils/100 leukocytes in 50 % not estab. Blood by Automated count (test code = 770-8) Lymphocytes/100 leukocytes in 34 % not estab. Blood by Automated count (test code = 736-9) Monocytes/100 leukocytes in 8 % not estab. Blood by Automated count (test code = 5905-5) Eosinophils/100 leukocytes in 7 % not estab. Blood by Automated count (test code = 713-8) Basophils/100 leukocytes in 1 % not estab. Blood by Automated count (test code = 706-2) immature cells (test code = fnp immature cells) Neutrophils [#/volume] in Blood 3.2 x10e3/uL 1.4-7.0 by Automated count (test code = 751-8) Lymphocytes [#/volume] in Blood 2.1 x10e3/uL 0.7-3.1 by Automated count (test code = 731-0) Monocytes [#/volume] in Blood 0.5 x10e3/uL 0.1-0.9 by Automated count (test code = 742-7) Eosinophils [#/volume] in Blood 0.5 x10e3/uL 0.0-0.4 H by Automated count (test code = 711-2) Basophils [#/volume] in Blood 0.0 x10e3/uL 0.0-0.2 by Automated count (test code = 704-7) immature granulocytes (test 0 % not estab. code = immature granulocytes) Granulocytes Immature 0.0 x10e3/uL 0.0-0.1 [#/volume] in Blood by Automated count (test code = 52255-9) Nucleated erythrocytes/100 fnp leukocytes [Ratio] in Blood by Automated count (test code = 24626-0) Morphology [interpretation] in fnp Blood Narrative (test code = 58316-1) [facility] - Serum or Plasma 2019-09-11 00:00:00 Test Item Value Reference Range Interpretation Comments Cholesterol [Mass/volume] in Serum 170 mg/dL 100-199 or Plasma (test code = 2093-3) Triglyceride [Mass/volume] in Serum 177 mg/dL 0-149 H or Plasma (test code = 2571-8) Cholesterol in HDL [Mass/volume] in 49 mg/dL >39 Serum or Plasma (test code = 2085-9) Cholesterol in VLDL [Mass/volume] 35 mg/dL 5-40 in Serum or Plasma by calculation (test code = 06610-8) Cholesterol in LDL [Mass/volume] in 86 mg/dL 0-99 Serum or Plasma by calculation (test code = 91806-6) comment: (test code = comment:) fnp [facility] 1999 panel - Serum or [id number] 00:00:00 Test Item Value Reference Range Interpretation Comments Protein [Mass/volume] in Serum or 7.0 g/dL 6.0-8.5 Plasma (test code = 2885-2) Albumin [Mass/volume] in Serum or 3.8 g/dL 3.5-5.5 Plasma (test code = 1751-7) Bilirubin.total [Mass/volume] in 0.2 mg/dL 0.0-1.2 Serum or Plasma (test code = 1975-2) Bilirubin.direct [Mass/volume] in 0.08 mg/dL 0.00-0.40 Serum or Plasma (test code = 1968-7) Alkaline phosphatase [Enzymatic 122 IU/L 39-117 H activity/volume] in Serum or Plasma (test code = 6768-6) Aspartate aminotransferase 22 IU/L 0-40 [Enzymatic activity/volume] in Serum or Plasma (test code = 1920-8) Alanine aminotransferase 17 IU/L 0-32 [Enzymatic activity/volume] in Serum or Plasma (test code = 1742-6) [facility] A1c/Hemoglobin.total in [id number] 00:00:00 Test Item Value Reference Range Interpretation Comments Hemoglobin A1c/Hemoglobin.total in 8.4 % 4.8-5.6 H Blood (test code = 4548-4) Glucose mean value [Mass/volume] in 194 mg/dL Blood Estimated from glycated hemoglobin (test code = 25206-0) [facility], [id number] 00:00:00 Test Item Value Reference Range Interpretation Comments interpretation (test code = note interpretation) pdf image (test code = pdf image) . [facility] [id number] 00:00:00 Test Item Value Reference Range Interpretation Comments pdf image (test code = pdf not applicable image) [facility]
[2021-10-28] MEDS ORDERED: HYDRALAZINE HCL 20 MG/ML VIAL ONE (21:26)
[2021-10-28] MEDS ORDERED: MORPHINE 2 MG/ML SYR ONE (21:28)
[2021-10-28] MEDS ORDERED: ONDANSETRON 4 MG/2 ML VIAL ONE (21:28)
[2021-10-28] MEDS ORDERED: TRAMADOL HCL 50 MG TAB ONE (21:42)
[2021-10-28 21:49] LABS: Absolute Lymphocytes (CBC) 1.4 K/uL (0.7-4.9); Basophils % 1.4 % (0-1.3); Hematocrit 36.7 % (36.0-45.0); Lymphocytes % 19.8 % (15.3-44.8); MPV 8.7 fL (7.6-11.3); RBC Red Blood Cell Count 4.68 M/uL (3.86-4.86)
[2021-10-28 22:13] LABS: Bilirubin Direct 0.1 mg/dL (0-0.2); Bilirubin Total 0.4 mg/dL (0.2-1.0); Protein, Total 8.5 g/dL (6.4-8.2)
[2021-10-28 22:30] LABS: Potassium 4.2 mmol/L (3.5-5.1)
--- NOTE | 2021-10-29 00:01 | ER ---
Nurse's Notes [facility] Name: Tulio Smith Age: 61 yrs Sex: Female : 1960 Arrival Date: 10/28/2021 Time: 18:28 Bed 8 Private MD: Diagnosis: Nausea with vomiting, unspecified;Abdominal pain, Generalized Presentation: 10/28 19:44 Chief complaint: Patient states: vomiting that began today; difficulty breathing that lp1 began last night. Coronavirus screen: shortness of breath. Ebola Screen: No symptoms or risks identified at this time. Risk Assessment: Do you want to hurt yourself or someone else? Patient reports no desire to harm self or others. Onset of symptoms was October 28, 2021. 19:44 Method Of Arrival: Wheelchair lp1 19:44 Acuity: CLARICE 2 lp1 19:50 Initial Sepsis Screen: Does the patient meet any 2 criteria? No. Patient's initial lp1 sepsis screen is negative. Does the patient have a suspected source of infection? No. Patient's initial sepsis screen is negative. 19:50 Note Patient reports vomiting up BP meds this AM. lp1 Triage Assessment: 19:50 General: Appears in no apparent distress. Behavior is drowsy. Respiratory: Respiratory lp1 effort is even. Derm: Skin is intact, Skin is dry, Skin is normal. 21:46 Respiratory: Reports shortness of breath at rest Onset: The symptoms/episode tw5 began/occurred gradually, the patient has mild shortness of breath. Historical: - Allergies: 19:45 No Known Allergies; lp1 - PMHx: 19:45 Diabetes - IDDM; ESRD; GERD; High Cholesterol; Hypertension; HD M/W/F; lp1 - Immunization history:: Adult Immunizations up to date, Client reports receiving the 2nd dose of the Covid vaccine. - Social history:: Smoking status: Patient denies any tobacco usage or history of. Screenin:44 Abuse screen: Denies threats or abuse. Denies injuries from another. Nutritional tw5 screening: No deficits noted. Tuberculosis screening: No symptoms or risk factors identified. Fall Risk Fall in past 12 months (25 points). Secondary diagnosis (15 points) IV access (20 points). Ambulatory Aid- Crutches/Cane/Walker (15 pts). Gait- Weak (10 pts.). Assessment: 21:44 General: Appears in no apparent distress. uncomfortable, Behavior is appropriate for tw5 age, drowsy, Reports "I have been hurting for days, I feel like I am so full of fluids the sides of my stomach hurts." Patient states that this has been going on since before her last dialysis. She is due for her next dialysis tomorrow. " I also cannot keep anything down, I keep throwing up.". Pain: Complains of pain in abdomen Pain currently is 9 out of 10 on a pain scale. Cardiovascular: Rhythm is sinus rhythm. Respiratory: Airway is patent Trachea midline Respiratory effort is even, unlabored, Breath sounds are diminished in left posterior lower lobe, right posterior middle lobe and right posterior lower lobe. GI: Abdomen is round. 22:50 Reassessment: Patient appears in no apparent distress at this time. as6 23:37 Reassessment: Patient appears in no apparent distress at this time. No changes from tw5 previously documented assessment. Patient and/or family updated on plan of care and expected duration. Pain level reassessed. Patient states feeling better. Patient states symptoms have improved. 10/29 00:04 Reassessment: Patient states feeling better. Patient states symptoms have improved. tw5 Vital Signs: 10/28 19:50 BP 200 / 80; Pulse 80; Resp 20; Temp 98.7(O); Pulse Ox 97% on R/A; Weight 92.53 kg (R); lp1 Height 5 ft. 3 in. (160.02 cm); Pain 0/10; 19:51 BP 198 / 78; lp1 21:44 BP 201 / 83; Pulse 72; Resp 18; Pulse Ox 100% on R/A; Pain 9/10; tw5 22:48 BP 192 / 83; Pulse 80; Resp 18 S; Pulse Ox 100% on R/A; as6 23:34 Pain 6/10; tw5 23:35 BP 179 / 74; Pulse 76; Resp 18; Pulse Ox 100% on R/A; Pain 6/10; tw5 10/29 00:03 BP 174 / 80; Pulse 84; Resp 18; Pulse Ox 100% on R/A; tw5 10/28 19:50 Body Mass Index 36.14 (92.53 kg, 160.02 cm) lp1 ED Course: 10/28 18:28 Patient arrived in ED. ds1 19:45 Triage completed. lp1 19:45 Arm band placed on right wrist. lp1 20:47 Isabel Velazquez FNP-C [facility]. kb 20:47 José Lomeli MD is Attending Physician. kb 21:08 XRAY Chest (1 view) In Process Unspecified. EDMS 21:13 TioDeborah is Primary Nurse. tw5 21:44 Awaiting lab results. tw5 21:44 Patient has correct armband on for positive identification. Placed in gown. Bed in low tw5 position. Call light in reach. Side rails up X 1. Adult w/ patient. panel monitor on. Pulse ox on. NIBP on. Door closed. Noise minimized. Lights dimmed. Warm blanket given. Verbal reassurance given. 21:44 COVID-19 (Coronavirus) Document "Date of Onset" if Symptomatic Sent. tw5 21:44 Basic Metabolic Panel Sent. tw5 21:44 CBC with Diff Sent. tw5 21:44 Hepatic Function Sent. tw5 21:44 Lipase Sent. tw5 21:44 Initial lab(s) drawn, by me, sent to lab. EKG done, by ED staff, reviewed by José Lomeli MD COVID swab sent to lab. Inserted saline lock: 20 gauge in right antecubital area, using aseptic technique. Blood collected. 22:12 SARS-COV-2 RT PCR Sent. tw5 22:22 CT Stone Protocol In Process Unspecified. EDMS 10/29 00:03 No provider procedures requiring assistance completed. IV discontinued, intact, tw5 bleeding controlled, No redness/swelling at site. Pressure dressing applied. Administered Medications: 10/28 21:33 Drug: hydrALAZINE 10 mg Route: IVP; Site: right antecubital; tw5 23:34 Follow up: Response: No adverse reaction tw5 21:33 Drug: Zofran (Ondansetron) 4 mg Route: IVP; Site: right antecubital; tw5 23:34 Follow up: Response: No adverse reaction tw5 21:33 Not Given (Patient Refused): morphine 2 mg IVP once; RASS on ADMIN: Combtv4, Very tw5 Agttd3, Agttd2, Rstlss1, AlertClm0, Drwsy-1, Lt Sdtn-2, Mod Sdtn-3, Dp Sdtn-4, UnArsble-5 21:44 Drug: traMADol 50 mg Route: PO; tw5 23:34 Follow up: Pain 04/15 Adult; Response: No adverse reaction; Pain is decreased; RASS: tw5 Drowsy (-1) Outcome: 10/29 00:00 Discharge ordered by . antonino 00:03 Discharged to home ambulatory, with family. tw5 00:03 Condition: improved 00:03 Discharge instructions given to patient, Instructed on discharge instructions, follow up and referral plans. Demonstrated understanding of instructions, follow-up care. 00:08 Patient left the ED. tw5 Signatures: Dispatcher [employer] EDMS Isabel Velazquez, GALLEY BOY-C GALLEY BOY-Tomasa Shelley ds1 Nikki Bobo, RN RN lp1 Deborah Kinsey tw5 Ben Dallas RN RN as6 Corrections: (The following items were deleted from the chart) 10/28 19:45 19:45 Allergies: Heparin (rash, swelling); lp1 lp1 19:51 19:44 Acuity: CLARICE 3 lp1 lp1 21:46 21:44 CORONAVIRUS drawn and sent. tw5 EDCO
--- NOTE | 2021-10-29 00:02 | EDPHYS ---
Physician Documentation [facility] Name: Tulio Smith Age: 61 yrs Sex: Female : 1960 Arrival Date: 10/28/2021 Time: 18:28 Bed 8 Private MD: ED Physician José Lomeli HPI: 10/28 22:48 This 61 yrs old Black Female presents to ER via Wheelchair with complaints of Breathing kb Difficulty, Cant Keep Food Down. 22:48 The patient has not recently seen a physician. kb 22:48 The patient presents with abdominal pain bilateral lateral abd. Onset: The kb symptoms/episode began/occurred yesterday. The symptoms do not radiate. Associated signs and symptoms: Pertinent positives: nausea and vomiting, Pertinent negatives: fever. The symptoms are described as constant. Modifying factors: The symptoms are alleviated by nothing, the symptoms are aggravated by nothing. Severity of pain: At its worst the pain was moderate in the emergency department the pain is unchanged. The patient has not experienced similar symptoms in the past. Historical: - Allergies: 19:45 No Known Allergies; lp1 - PMHx: 19:45 Diabetes - IDDM; ESRD; GERD; High Cholesterol; Hypertension; HD M/W/F; lp1 - Immunization history:: Adult Immunizations up to date, Client reports receiving the 2nd dose of the Covid vaccine. - Social history:: Smoking status: Patient denies any tobacco usage or history of. ROS: 22:48 Constitutional: Negative for fever, chills, and weight loss. kb 22:48 Abdomen/GI: Positive for abdominal pain, nausea and vomiting, Negative for diarrhea. 22:48 All other systems are negative. Exam: 22:48 Constitutional: This is a well developed, well nourished patient who is awake, alert, kb and in no acute distress. Head/Face: Normocephalic, atraumatic. ENT: Moist Mucous membranes Cardiovascular: Regular rate and rhythm with a normal S1 and S2. No gallops, murmurs, or rubs. No pulse deficits. Respiratory: Respirations even and unlabored. No increased work of breathing. Talking in full sentences Skin: Warm, dry with normal turgor. Normal color. MS/ Extremity: Pulses equal, no cyanosis. Neurovascular intact. Full, normal range of motion. Neuro: Awake and alert, GCS 15, oriented to person, place, time, and situation. Moves all extremities. Normal gait. Psych: Awake, alert, with orientation to person, place and time. Behavior, mood, and affect are within normal limits. 22:48 Abdomen/GI: Inspection: abdomen appears normal, Bowel sounds: normal, Palpation: soft, in all quadrants, mild abdominal tenderness, in the anterior aspect of right lateral abdomen and anterior aspect of left lateral abdomen. Vital Signs: 19:50 BP 200 / 80; Pulse 80; Resp 20; Temp 98.7(O); Pulse Ox 97% on R/A; Weight 92.53 kg (R); lp1 Height 5 ft. 3 in. (160.02 cm); Pain 0/10; 19:51 BP 198 / 78; lp1 21:44 BP 201 / 83; Pulse 72; Resp 18; Pulse Ox 100% on R/A; Pain 9/10; tw5 22:48 BP 192 / 83; Pulse 80; Resp 18 S; Pulse Ox 100% on R/A; as6 23:34 Pain 6/10; tw5 23:35 BP 179 / 74; Pulse 76; Resp 18; Pulse Ox 100% on R/A; Pain 6/10; tw5 10/29 00:03 BP 174 / 80; Pulse 84; Resp 18; Pulse Ox 100% on R/A; tw5 10/28 19:50 Body Mass Index 36.14 (92.53 kg, 160.02 cm) lp1 MDM: 10/28 20:47 Patient medically screened. kb 22:47 Data reviewed: vital signs, nurses notes. Data interpreted: Pulse oximetry: on room air kb is 100 %. Interpretation: normal. 10/29 00:00 Counseling: I had a detailed discussion with the patient and/or guardian regarding: the kb historical points, exam findings, and any diagnostic results supporting the discharge/admit diagnosis, lab results, radiology results, the need for outpatient follow up, a family practitioner, to return to the emergency department if symptoms worsen or persist or if there are any questions or concerns that arise at home. ED course: Pt is feeling better, tolerating po intake. Will go to dialysis tomorrow. 10/28 21:16 Order name: Basic Metabolic Panel; Complete Time: 22:31 kb 10/28 21:16 Order name: CBC with Diff; Complete Time: 21:58 kb 10/28 21:16 Order name: Hepatic Function; Complete Time: 22:31 kb 10/28 21:16 Order name: Lipase; Complete Time: 22:31 kb 10/28 21:24 Order name: COVID-19 (Coronavirus) Document "Date of Onset" if Symptomatic tw5 10/28 20:23 Order name: XRAY Chest (1 view); Complete Time: 00:14 rn 10/28 21:16 Order name: CT Stone Protocol kb 10/28 21:46 Order name: SARS-COV-2 RT PCR; Complete Time: 22:28 EDMS 10/28 23:50 Order name: Glucose, Ancillary Testing; Complete Time: 23:59 EDMS 10/28 21:16 Order name: IV Saline Lock; Complete Time: 21:33 kb 10/28 21:16 Order name: Labs collected and sent; Complete Time: 21:33 kb Administered Medications: 10/28 21:33 Drug: hydrALAZINE 10 mg Route: IVP; Site: right antecubital; tw5 23:34 Follow up: Response: No adverse reaction tw5 21:33 Drug: Zofran (Ondansetron) 4 mg Route: IVP; Site: right antecubital; tw5 23:34 Follow up: Response: No adverse reaction tw5 21:33 Not Given (Patient Refused): morphine 2 mg IVP once; RASS on ADMIN: Combtv4, Very tw5 Agttd3, Agttd2, Rstlss1, AlertClm0, Drwsy-1, Lt Sdtn-2, Mod Sdtn-3, Dp Sdtn-4, UnArsble-5 21:44 Drug: traMADol 50 mg Route: PO; tw5 23:34 Follow up: Pain 6/10 Adult; Response: No adverse reaction; Pain is decreased; RASS: tw5 Drowsy (-1) Disposition: 10/29 06:04 Co-signature as Attending Physician, José Lomeli MD I agree with the assessment and rn plan of care. Attestation: The patient's history, exam findings, diagnostics, and a summary of any interventions or procedures was reviewed in detail with Isabel KENNEDY. Disposition Summary: 10/29/21 00:00 Discharge Ordered Location: Home kb Condition: Stable kb Diagnosis - Nausea with vomiting, unspecified kb - Abdominal pain, Generalized kb Followup: kb - With: Emergency Department - When: As needed - Reason: Worsening of condition Followup: kb - With: Private Physician - When: 2 - 3 days - Reason: Recheck today's complaints, Continuance of care, Re-evaluation by your physician Discharge Instructions: - Discharge Summary Sheet kb - Nausea and Vomiting, Adult, [id number] kb - Abdominal Pain, Adult, [id number] kb Forms: - Medication Reconciliation Form kb - Thank You Letter kb - Antibiotic Education kb - Prescription Opioid Use kb Prescriptions: - Zofran 4 mg Oral Tablet - take 1 tablet by ORAL route every 6 hours As needed; 20 tablet; Refills: 0, kb Product Selection Permitted Signatures: Dispatcher [employer] EDDE Isabel Velazquez FNP-C FNP-Ckb Nieto, Roman, MD MD rn Pena, Laura, RN RN lp1 Deborah Kinsey tw5 Corrections: (The following items were deleted from the chart) 10/28 19:45 19:45 Allergies: Heparin (rash, swelling); lp1 lp1 21:46 21:25 CORONAVIRUS ordered. EDDE EDDE 10/29 00:01 00:00 ED course: Pt is feeling better. Will go to dialysis tomorrow. kb kb
--- NOTE | 2021-10-29 00:04 | RAD REPORT ---
EXAM DESCRIPTION: Isabel Single View10/28/2021 9:08 pm CLINICAL HISTORY: Chest pain COMPARISON: 2017 FINDINGS: The interstitial pulmonary pattern appears mildly prominent The heart is mildly enlarged. IMPRESSION: Mild prominence of the pulmonary interstitial pattern may indicate a pneumonitis or mild atypical infection
[2021-10-29 00:19] VITALS: BP 174/80
[2021-10-29 00:33] VITALS: TEMP 99.5
[2021-10-29 00:36] VITALS: O2SAT 96
--- NOTE | 2021-10-29 22:38 | RAD REPORT ---
EXAM DESCRIPTION: CT - Stone Protocol - 10/29/2021 4:17 am CLINICAL HISTORY: 61 years, Female, ABD PAIN COMPARISON: None. TECHNIQUE: Multiple transaxial tomograms of the abdomen and pelvis were performed from the lung base s to the symphysis pubis 3 mm slice thickness at 3 mm interval reconstruction, without administration of IV and oral contrast. Multiplanar reformats in the sagittal and coronal plane were generated and reviewed. This exam was performed according to our departmental dose-optimization protocol, which includes auto mated exposure control, adjustment of the mA and/or kV according to patient size and/or use of iterat gordy reconstruction technique. FINDINGS: The lack of IV and oral contrast limits evaluation of solid organs, subtle lesions cannot be excluded. The lung bases demonstrate minimal dependent atelectatic changes Haziness within the skin/subcutaneous tissue suggesting possibility of edema and/or anasarca. There is multiple bilateral renal cysts suggesting the possibility of autosomal polycystic kidney dis ease. No definitive evidence for hydronephrosis. Minimal haziness surrounding the kidneys could sugge st most likely to fluid/or inflammation. Grossly the unopacified liver, pancreas, spleen and adrenal glands demonstrate to be within normal li mits, no significant focal lesions were identified. Surgical clips within the gallbladder fossa correspond to previous cholecystectomy. Grossly the unopacified stomach, small bowel and large bowel demonstrate to be within normal limits. There is no evidence for bowel dilatation/or free air. Mild fecal stasis. The appendix was not visual ized although no significant inflammatory changes are seen within the right lower quadrant. The urinary bladder demonstrate suboptimal distention. The uterus was not visualized most likely aneudy esponding to hysterectomy. The aorta demonstrate atherosclerotic disease as well as vascular cortication of the visceral branche s and iliac vessels. There is no retroperitoneal lymphadenopathy. There is no evidence for ascites. The bone windows demonstrate increase sclerosis perhaps related to secondary hyperparathyroidism. Pos terior osteophyte complex at L1/L2 and L2/L3. IMPRESSION: Status post cholecystectomy. Multiple bilateral renal cysts suggesting the possibility of autosomal polycystic kidney disease. Atherosclerotic disease of the aorta and its visceral branches Mild fecal stasis. Haziness within the skin/subcutaneous tissue suggesting possibility of edema and/or anasarca. Increased sclerosis within the bone windows perhaps related to secondary hyperparathyroidism. Electronically signed by: Kiet Alcantar MD 10/28/2021 10:58 PM METAL WORKER Due to temporary technical issues with the PACS/Fluency reporting system, reports are being signed by the in house radiologists without review as a courtesy to insure prompt reporting. The interpreting radiologist is fully responsible for the content of the report.
== END 2021-10-29 00:08 | disposition home or self-care (01) ==
LOC: ER 18:26
DX: R10.84 Generalized abdominal pain (principal); E11.22 Type 2 diabetes mellitus with diabetic chronic kidney disease; I12.0 Hypertensive chronic kidney disease with stage 5 chronic kidney disease or end stage renal disease; N18.6 End stage renal disease; Z99.2 Dependence on renal dialysis; Z20.822 Contact with and (suspected) exposure to COVID-19
CPT/HCPCS: 93005; 85025; 80048; 36415; 82947; 80076; 83690; 76377; 74176; 71045; 96375; 96374; 99284; U0003; J0360; J2405; J2270

== ENCOUNTER 2021-11-18 08:15 | Inpatient (IN) | payer OTHER ==
--- OUTSIDE RECORDS SUMMARY | 2021-11-18 08:19 | XMS REPORT | Continuity of Care Document ---
:1960 Author Organization [facility] t Address [address] [place] [address] Care Team Providers Name Role Phone Pcp, Does Not Have A Primary Care Physician SALENA Attending Clinician Unavailable ANDRY Attending Clinician Unavailable Andry HERNANDEZ Attending Clinician Doctor Unassigned, Name Attending Clinician Unavailable LONDON Attending Clinician Unavailable MD LONDON Attending Clinician Unavailable RIKA Attending Clinician Unavailable DENI Attending Clinician Unavailable MD GITA Attending Clinician Unavailable JOANA Attending Clinician Unavailable ASHLEIGH_G Attending Clinician Unavailable MD JOANA E. Attending [...] Number Effective Date Expiration Date S vignesh [facility] MEDICARE [id number] COMPLETE (MEDICARE REPLACEMENT HMO) SANDRA/MAYTE [id number] 2021 MEDICARE ADVANTAGE 00:00:00 [place]IC[place] A-[place]: [id number] 2009 [employer] - 00:00:00 [facility] MEDICARE B-[place]: [id number] 2007 [employer] 00:00:00 Problems Condition Condition Condition Status Onset Resolution Last Treating Co mments Source Name Details Category Date Date Treatment Clinician Date Biliary Biliary Problem Active [place] dyskinesia Dyskinesia 6-16 da 00:00: [facility] Body mass Body Mass Problem Active [place] index 30+ Index 30+ 2-02 da - obesity - Obesity 00:00: Epis endoscopy support specialist 00 al Health Outreac h Program Umbilical Umbilical Problem Active [place] hernia Hernia 2-02 da 00:00: [facility] Anemia Anemia Problem Active 2018-11 [place] 106 da 00:00: [facility] 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: [place] with ESRD with ESRD 00 Medi jalil (end-stage (end-stage Br anch renal renal disease) disease) Dyslipidem Dyslipidem Disease Active U nivers ia ia 11-14 ity of 00:00: [place] 00 Medical Branch Essential Essential Disease Active Uni vers hypertensi hypertensi 11-14 it y of on on 00:00: [place] 00 Medical Branch Hyperlipid Hyperlipid Problem Active 2015-11 M [place] emia emia 11-14 da 00:00: [facility] Pulmonary Pulmonary Problem Active 2015-11 [place] edema Edema 11-14 da 00:00: [facility] Dependence Dependence Problem Active 2015-11 M [place] on on 11-14 da hemodialys Hemodialys 00:00: [facility] is due to is Due to 00 al end stage End Stage Heal th renal Renal Outreac disease Disease h Program Poor Poor Problem Active 2015-11 [place] hypertensi Hypertensi 11-14 da on control on Control 00:00: [facility] 00 al [facility] Outreac [facility] Program Fever Fever Problem Active [place] 4-07 da 00:00: [facility] 00 al [facility]re[facility] [...] Active [place] loss Loss da [facility] 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 da [facility] Hypertensi Hypertensi Problem Active M [place] ve renal ve Renal da failure [facility] Chronic Chronic Problem Active [place] kidney Kidney da disease Disease [facility] Heart Heart Problem Active [place] murmur Murmur da [facility] Hemodialys Hemodialys Problem Active M [place] is is da [facility] Multiple Multiple Problem Active [place] complicati Complicati da ons due to ons Due to [facility] type 2 Type 2 al diabetes Diabetes Health mellitus Mellitus Outrea c h Program Diabetes Diabetes Problem Active [place] mellitus Mellitus da [facility] Hypervolem Hypervolem Problem Active M [place] ia ia da [facility] Hypertensi Hypertensi Problem Active M [place] ve urgency ve Urgency da [facility] Program End stage End Stage Problem Active [place] renal Renal da failure on Failure on Ep isc dialysis Dialysis mo Health Outreac h Program End-stage End-stage Problem Active [place] renal Renal da disease Disease [facility] Dyspnea Dyspnea Problem Active [place] [facility] Abdominal Abdominal Problem Active [place] pain Pain da [facility] Allergies, Adverse Reactions, Alerts Allergy Allergy Status Severity Reaction(s) Onset Inactive Treating Comm ents Source Name Type Date Date Clinician CEFTRIAX DRUG Active High Anaphylaxis 2020-0 Uni vers ONE INGREDI 05-07 ity of 00:00: [place] 00 Medical Branch Ceftriax Propensi Active Anaphylaxis 2020-0 U nivers one ty to 05-07 ity of adverse 00:00: [place] reaction 00 Medical s Branch HEPARIN DRUG Active Rash 2017- Univers INGREDI 11-14 ity of 00:00: [place] 00 Medical Branch Heparin Propensi Active Other - See Sweats Un payal ty to comments 11-14 ity of adverse 00:00: [place] reaction 00 Medical s Branch Heparin Allergy Active [place] to 02-10 da substanc 00:00: [facility] 00 mo [facility]re[facility] Social History Social Habit Start Date Stop Date Quantity Comments Source Exposure to Not sure [facility] SARS-CoV-2 (event) Medica l Branch Tobacco use and 2017-11-14 2017-11-14 Never used [facility] exposure 00:00:00 00:00:00 Medical Branch Sex Ass[birth year] At [birth year] [facility] 00:00:00 00:00:00 Medical Branch Smoking Status Start Date Stop Date Source Never Smoker [facility] Medications Ordered Filled Start Stop Current Ordering Indication Dosage Frequency Signature Comments Components Source Medication Medication Date Date Medication? Clinician (SIG) Name Name MAXIMEKARIME Yes [id number] INJECT Unive rs SOLOSTAR 6 40-50 ity of U-300 00:00: UNITS [place] INSULIN 300 00 UNDER THE Med ical unit/mL SKIN Branch (1.5 mL) DAILY. InPn TOUJEO Yes [id number] INJECT Unive rs SOLOSTAR 6 40-50 ity of U-300 00:00: UNITS [place] INSULIN 300 00 UNDER THE Med ical unit/mL SKIN Branch (1.5 mL) DAILY. InPn TOUJEO Yes [id number] INJECT Unive rs SOLOSTAR 6 40-50 ity of U-300 00:00: UNITS [place] INSULIN 300 00 UNDER THE Med ical unit/mL SKIN Branch (1.5 mL) DAILY. InPn conjugated Yes .9mg Take 0.9 Uni vers estrogens 1-09 mg by ity of (PREMARIN) 14:35: mouth [place] 0.9 mg 39 daily. Medical tablet Branch Cholecalcif Yes Take by Un payal jac, -09 mouth ity of Vitamin D3, 14:35: [place]. [place] (VITAMIN 39 Medical D3) 5,000 Branch unit tablet carvedilol Yes 50mg Take 50 mg U nivers 25 mg - by mouth 2 ity of tablet 14:35: (two) [place] 39 times Medical daily with Branch meals. NIFEdipine 2017-0 Yes 90mg Take 90 mg U nivers XL 90 mg 24 1-09 by mouth ity of hr tablet 14:35: daily. [place] [id number] Medical Branch travoprost 2017-0 Yes 1[drp] Place 1 Un payal (TRAVATAN 1-09 Drop in ity of Z) 0.004 % 14:35: left eye [place] as ophthalmic 39 at Medical solution bedtime. Branch sevelamer 2017-0 Yes 1600mg Take 1,600 Univers 800 mg 1-09 mg by ity of tablet 14:35: mouth 3 [place] [address] (three) Medical times Branch daily with meals. [...] mouth 2 ity of tablet 14:35: (two) [place] [address] times Medical daily with Branch meals. NIFEdipine 2017-0 Yes 90mg Take 90 mg U nivers XL 90 mg 24 1-09 by mouth ity of hr tablet 14:35: daily. [place] [address] Medical Branch travoprost 2017-0 Yes 1[drp] Place 1 Un payal (TRAVATAN 1-09 Drop in ity of Z) 0.004 % 14:35: left eye [place] as ophthalmic 39 at Medical solution bedtime. Branch sevelamer 2017-0 Yes 1600mg Take 1,600 Univers 800 mg 1-09 mg by ity of tablet 14:35: mouth 3 [place] [address] (three) Medical times [place] daily with meals. rosuvastati 2017-0 Yes 20mg [...] mouth ity of hr tablet 14:35: daily. [place] 39 Medical Branch travoprost Yes 1[drp] Place 1 [...] with [place] 39 breakfast. Medical Branch ramipril 5 ramipril 5 2015-11 No 5MG ramipril 5 [place] mg capsule mg capsule 1-08 mg capsule da 5 mg by 5 mg by 00:00: 5 mg by Epi scop oral route. oral route. 00 oral a l route. Health Outreac h Program conjugated conjugated 2015-11 No .9MG conjugated [place] estrogens estrogens 1-06 estrogens da 0.3 mg 0.3 mg 00:00: 0.3 mg [facility] tablet 0.9 tablet 0.9 00 tablet al mg by oral mg by oral 0.9 mg by Health route. route. oral Outreac route. h Program ondansetron ondansetron 2015-11 No 8MG ondansetro [place] 8 mg 8 mg 11-11 n 8 mg da disintegrat disintegrat 00:00: disintegra [facility] ing tablet ing tablet 00 ting al 8 mg by 8 mg by tablet 8 oral route. oral route. mg by oral Outreac route. h Program sucralfate sucralfate No sucralfate [place] 1 gram 1 gram 1 gram da tablet TAKE tablet TAKE tablet [facility] 1 TABLET BY 1 TABLET BY TAKE 1 al MOUTH 4 MOUTH 4 TABLET BY Heal th TIMES DAILY TIMES DAILY MOUTH 4 Outreac TIMES h DAILY Program sulfamethox sulfamethox No sulfametho [place] azole 800 azole 800 xazole 800 da mg-trimetho mg-trimetho mg-trimeth [facility] prim 160 mg prim 160 mg oprim 160 al tablet TAKE tablet TAKE mg tablet Health 1 TABLET BY 1 TABLET BY TAKE 1 Outreac MOUTH TWICE MOUTH TWICE TABLET BY h A DAY A DAY MOUTH Program TWICE A DAY Toujeo Toujeo No Toujeo [place] SoloStar SoloStar SoloStar da U-300 U-300 U-300 [facility] Insulin 300 Insulin 300 Insulin al unit/mL unit/mL 300 Health (1.5 mL) (1.5 mL) unit/mL Outr eac subcutaneou subcutaneou (1.5 mL) h s pen s pen subcutaneo Program us pen travoprost travoprost No travoprost [place] 0.004 % eye 0.004 % eye 0.004 % da drops PUT 1 drops PUT 1 eye drops [facility] DROP INTO DROP INTO PUT 1 DROP al LEFT EYE AT LEFT EYE AT INTO LEFT Health BEDTIME BEDTIME EYE AT Outreac BEDTIME h Program Zantac 75 Zantac 75 No Zantac 75 [place] Every 8 Every 8 Every 8 da hours as hours as hours as Epi scop needed needed needed al Health Outreac h Program BD BD No BD [...] mg 25 mg 25 mg da tablet tablet tablet [facility] al [facility] Program cholecalcif cholecalcif No cholecalci [place] jac [...] 16 WEEKS A WEEK FOR 16 WEEKS docusate docusate No docusate [place] sodium 100 sodium 100 sodium 100 da mg capsule mg capsule mg capsule [facility] Take 1 Take 1 Take 1 al capsule capsule capsule Health every day every day every day Outreac by oral by oral by oral h route. route. route. Program doxazosin 2 doxazosin 2 No doxazosin [place] mg tablet mg tablet 2 mg da TAKE 1 TAKE 1 tablet [facility] TABLET BY TABLET BY TAKE 1 al MOUTH TWICE MOUTH TWICE TABLET BY Health A DAY A DAY MOUTH Outreac TWICE A h DAY Program esomeprazol esomeprazol No esomeprazo [place] e magnesium e magnesium le d a 40 mg 40 mg magnesium [facility] capsule,del capsule,del 40 mg al ayed ayed capsule,de Health release release layed Outreac release h Program gabapentin gabapentin No gabapentin [place] 100 mg 100 mg 100 mg da capsule capsule capsule [facility] p TAKE 1 TAKE 1 TAKE 1 al CAPSULE BY CAPSULE BY CAPSULE BY Health MOUTH TWICE MOUTH TWICE MOUTH Outreac A DAY A DAY TWICE A h DAY Program insulin insulin No insulin [place] aspar aspar aspar da prot-insuli prot-insuli prot-insul [facility] n aspart n aspart in aspart al 100 unit/mL 100 unit/mL 100 H ealth (70-30) (70-30) unit/mL Outrea c subcutaneou subcutaneou (70-30) h s pen s pen subcutaneo Program pen isosorbide isosorbide No isosorbide [place] mononitrate mononitrate mononitrat da ER 60 mg ER 60 mg e ER 60 mg E [facility] tablet,exte tablet,exte tablet,ext al nded nded ended Health release 24 release 24 release 24 Outreac hr TAKE 1 hr TAKE 1 hr TAKE 1 h TABLET BY TABLET BY TABLET BY Program MOUTH EVERY MOUTH EVERY MOUTH DAY DAY EVERY DAY methocarbam methocarbam No methocarba [place] ol 500 mg ol 500 mg mol 500 mg da tablet tablet tablet [facility] Outre[facility] Program nifedipine nifedipine No nifedipine [place] ER 90 mg ER 90 mg ER 90 mg da tablet,exte tablet,exte tablet,ext [facility] nded nded ended al release release release Health Outreac h Program omeprazole omeprazole No omeprazole [place] 40 mg 40 mg 40 mg da capsule,del capsule,del capsule,de [facility] ayed ayed layed al release release release Health TAKE 1 TAKE 1 TAKE 1 Outreac CAPSULE BY CAPSULE BY CAPSULE BY h MOUTH EVERY MOUTH EVERY MOUTH Program DAY DAY EVERY DAY ondansetron ondansetron No ondansetro [place] HCl 4 mg HCl 4 mg n HCl 4 mg d a tablet tablet tablet [facility] al [facility] Outreac h Program Premarin [...] mg 800 mg 800 mg [facility] tablet tablet tablet al Health Outreac h Program carvedilol carvedilol [...] Date Status Commen ts Source Name Name influenza, influenza, 2021-08-06 Completed [place] injectable, injectable, 00:00:00 [facility] alth quadrivalent quadrivalent Outreach P rogram COVID-19 vaccine, COVID-19 vaccine, 2021-01-10 Completed [place] vector-nr, rS-Ad26, vector-nr, rS-Ad26, 00:00:00 [facility] PF, 0.5 mL ([employer]) PF, 0.5 mL ([employer]) Outreach Program pneumococcal pneumococcal 2020-11-23 Completed [place] polysaccharide PPV23 polysaccharide PPV23 00:00:00 [facility] Out[facility] Progr am influenza, influenza, 2020-08-06 Completed [place] injectable, injectable, 00:00:00 [facility] He alth quadrivalent quadrivalent Outreach P rogram influenza, influenza, 2019-08-06 Completed [place] injectable, injectable, 00:00:00 [facility] He alth quadrivalent quadrivalent Outreach P rogram Tdap Tdap 2016-11-06 Completed [place] 00:00:00 [facility] Heal th Outreach Progr am Influenza Virus 2015-08-03 Completed Universit y of Vaccine 00:00:00 [facility] Influenza Virus 2015-08-03 Completed Universit y of Vaccine 00:00:00 [facility] Influenza Virus 2015-08-03 Completed Universit y of Vaccine 00:00:00 [facility] Influenza Virus 2014-07-30 Completed Universit y of Vaccine 00:00:00 [facility] Influenza Virus 2014-07-30 Completed Universit y of Vaccine 00:00:00 [facility] Influenza Virus 2014-07-30 Completed Universit y of Vaccine 00:00:00 [facility] Hep B, Adol or Pedi 2013-12-11 Completed Unive rsity of Dosage 00:00:00 [facility] Hep B, Adol or Pedi 2013-12-11 Completed Unive rsity of Dosage 00:00:00 [facility] Hep B, Adol or Pedi 2013-12-11 Completed Unive rsity of Dosage 00:00:00 [facility] Influenza Virus 2013-07-19 Completed Universit y of Vaccine 00:00:00 [facility] Influenza Virus 2013-07-19 Completed Universit y of Vaccine 00:00:00 [facility] Influenza Virus 2013-07-19 Completed Universit y of Vaccine 00:00:00 [facility] Influenza Virus 2012-07-09 Completed Universit y of Vaccine 00:00:00 [facility] Influenza Virus 2012-07-09 Completed Universit y of Vaccine 00:00:00 [facility] Influenza Virus 2012-07-09 Completed Universit y of Vaccine 00:00:00 [facility] Influenza Virus 2011-07-29 Completed Universit y of Vaccine 00:00:00 [facility] Influenza Virus 2011-07-29 Completed Universit y of Vaccine 00:00:00 [facility] Influenza Virus 2011-07-29 Completed Universit y of Vaccine 00:00:00 [facility] Pneumococcal 13 2011-06-22 Completed Universit y of Conjugate, PCV13 00:00:00 [facility] dical (Prevnar 13) Branch PPD (TB) 2011-06-22 Completed University of 00:00:00 [facility] Pneumococcal 13 2011-06-22 Completed Universit y of Conjugate, PCV13 00:00:00 [facility] dical (Prevnar 13) Branch PPD (TB) 2011-06-22 Completed University of 00:00:00 [facility] Pneumococcal 13 2011-06-22 Completed Universit y of Conjugate, PCV13 00:00:00 [facility] dical (Prevnar 13) Branch PPD (TB) 2011-06-22 Completed University of 00:00:00 [facility] Vital Signs Vital Name Observation Time Observation Value Comments Source BP Diastolic 2021-11-15 00:00:00 67 mm[Hg] [place] [facility] Height 2021-11-15 00:00:00 63 [facility] BMI (Body Mass 2021-11-15 00:00:00 35.2 kg/m2 [place] [employer] [facility] Index) Health Outreach Program BP Systolic 2021-11-15 00:00:00 135 mm[Hg] [place] [facility] Body Weight 2021-11-15 00:00:00 198.8 [lb_av] [place] [facility] BP Diastolic 2021-10-27 00:00:00 64 mm[Hg] [place] [facility] Height 2021-10-27 00:00:00 63 [in_i] [place] [facility] BMI (Body Mass 2021-10-27 00:00:00 36.1 kg/m2 [place] [employer] [facility] Index) Health Outreach Program BP Systolic 2021-10-27 00:00:00 136 mm[Hg] [place] [facility] Body Weight 2021-10-27 00:00:00 3264 [oz_av] [place] [facility] Systolic blood 2021-09-13 17:06:00 157 mm[Hg] [facility] Branch Diastolic blood 2021-09-13 17:06:00 80 mm[Hg] [facility] pressure [facility] Branch Heart rate 2021-09-13 17:04:00 63 /min [facility] Body weight 2021-09-13 17:04:00 90.266 kg [facility] Oxygen saturation 2021-09-13 17:04:00 96 /min [facility] in Arterial blood Medical Br anch by Pulse oximetry Height 2021-04-29 00:00:00 63 [in_i] [place] [facility] BMI (Body Mass 2021-04-29 00:00:00 36.7 kg/m2 [facility] Medical Index) Group BP Systolic 2021-04-29 00:00:00 130 mm[Hg] [place] [facility] Body Weight 2021-04-29 00:00:00 207 [lb_av] [place] [facility] BP Diastolic 2021-04-29 00:00:00 70 mm[Hg] [place] [facility] BP Diastolic 2020-12-31 00:00:00 68 mm[Hg] [facility] [facility] Height 2020-12-31 00:00:00 63 [in_i] [place] [facility] BMI (Body Mass 2020-12-31 00:00:00 37.6 kg/m2 [facility]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) Group BP Systolic 2020-12-31 00:00:00 136 mm[Hg] [facility] Body Weight 2020-12-31 00:00:00 212 [lb_av] [place] [facility] BP Diastolic 2020-12-08 00:00:00 72 mm[Hg] [place] [facility] Height 2020-12-08 00:00:00 63 [in_i] [place] [facility] BMI (Body Mass 2020-12-08 00:00:00 37 kg/m2 [place] [employer] [facility] Index) Health Outreach Program BP Systolic 2020-12-08 00:00:00 144 mm[Hg] [place] [facility] Body Weight 2020-12-08 00:00:00 3344 [oz_av] [place] [facility] BP Diastolic 2019-09-17 00:00:00 80 mm[Hg] [place] [facility] Height 2019-09-17 00:00:00 63 [in_i] [place] [facility] BMI (Body Mass 2019-09-17 00:00:00 35.3 kg/m2 [place] [employer] [facility] Index) Health Outreach Program BP Systolic 2019-09-17 00:00:00 150 mm[Hg] [place] [facility] Body Weight 2019-09-17 00:00:00 199 [lb_av] [place] [facility] BP Diastolic 2019-09-10 00:00:00 76 mm[Hg] [place] [facility] Height 2019-09-10 00:00:00 63 [in_i] [place] [facility] BMI (Body Mass 2019-09-10 00:00:00 35.6 kg/m2 [place] [employer] [facility] Index) Health Outreach Program BP Systolic 2019-09-10 00:00:00 144 mm[Hg] [place] [facility] Body Weight 2019-09-10 00:00:00 200.9 [lb_av] [place] [facility] Procedures Procedure Date / Time Performing Clinician Source Performed TRANSTHORACIC ECHO (TTE) 2021-09-21 19:32:00 Jose Lester [facility] COMPLETE Medical Branch CONSENT/REFUSAL FOR 2021-09-21 19:01:46 Doctor Unassigned, [facility] DIAGNOSIS AND TREATMENT [place] [facility] ASSIGNMENT OF BENEFITS 2021-09-21 19:01:15 [facility] [place] [facility] HB ECG ROUTINE & RHYTHM 2021-09-13 17:08:28 Jose Lester [facility] Branch EXTERNAL PROVIDER - ADC 2021-08-12 05:01:00 Doctor Unassigned, [facility] REFERRAL [place] [facility] Cholecystectomy 2021-08-06 00:00:00 Wiley [facility] Outreach Program MR, 2020-12-31 00:00:00 Wiley Linares dical cholangiopancreatogram, w/ Group contrast unlisted imaging order 2020-12-15 00:00:00 [facility] MAMMO, screening, digital, 2020-12-08 00:00:00 [place] [facility] bilateral [facility] Outreach [facility] CT, abdomen + pelvis, w/ 2020-12-08 00:00:00 Ant agotana [facility] contrast Health Outreach Program MAMMO, screening, digital, 2019-09-10 00:00:00 M natividadgordthad [facility] bilateral [facility] Outreach Program DEXA, axial skeleton 2019-09-10 00:00:00 Zohreh oliveira [facility] Total Hysterectomy 2009-11-06 00:00:00 Wiley [facility] Section 1988-11-06 00:00:00 [facility] Graft of Skin to Skin [facility] Bilateral Tubal Ligation [facility] Plan of Care Planned Activity Planned Date Details Comments Source Future Appointment 2021-12-02 13:15:00 Wiley Lorenzana [facility] [address]; , [place] Program [id number] Encounters Start End Encounter Admission Attending Care Care Encounter Source Date/Time Date/Time Type Type Clinicians Facility Department ID 2021-11-15 2021-11-15 Outpatient THOR_OLYA MISANA MISANA [id number] [place] 04:13:00 04:13:00 _ANN 0110 [facility] 2021-11-15 2021-11-15 Maverick VAL[place] - [id number] [place] 00:00:00 00:00:00 Wiley Breen MD: [id number] [facility] Epis endoscopy support specialist [place] HOP - [facility] [address] [place] Out[place]ac [place], [facility] Program [id number] , Ph. 2021-10-27 2021-10-27 Outpatient SHIMEK_OLYA VALENCIA [facility] [id number] [place] 03:20:00 03:20:00 _SONA 1222 da [facility] 2021-10-27 2021-10-27 Olya Calle MISANA [place] - [id number] [place] 00:00:00 00:00:00 Wiley Platt da CALLIOPE PLAYER: 17[address] [facility] [address] [address] [facility] [place] 3 Outreac [id number] h , Ph. Program 2021-09-21 2021-09-21 [facility] [id number] Univers 13:00:00 23:59:00 JOSE mittal [facility] 2021-09-21 2021-09-21 [facility] [id number] Univers 13:00:00 23:59:00 Encounter Jose IWSE [id number] [place]y [id number] [id number] [facility] 850 Branch 2021-09-13 2021-09-13 [facility] [id number] Univers 11:00:00 11:27:51 JOSE kahn [facility] 2021-09-13 2021-09-13 [facility] [id number] Univers 10:48:07 11:27:51 Visit Jose WISE [id number] [id number] [id number] Ri dical NAL 059 Branch [facility] 2021-08-12 2021-08-12 Orders Doctor SAL [id number] Univers 00:00:00 00:00:00 Only Unassigned, MCKINLEY [id number] ity of [place] [facility] [id number] [place] as [id number] Medi jalil 009 Branch 2021-08-10 2021-08-10 Outpatient [facility] [id number] [place] 00:00:00 00:00:[address] 2021-07-23 2021-07-23 Outpatient TRISTON CALLAHAN [facility] [id number] [place] 00:00:00 00:00:[address] 2021-07-22 2021-07-22 Outpatient RIKA [facility] [id number] [place] 00:00:00 00:00:00 ERIC [address] 2021-07-22 2021-07-22 Outpatient [facility] [id number] [place] 00:00:00 00:00:[address] 2021-07-22 2021-07-22 Outpatient TRISTON CALLAHAN [facility] [id number] [place] 00:00:00 00:00:[address] 2021-06-17 2021-06-17 Outpatient RIKA [facility] [id number] [place] 00:00:00 00:00:00 ERIC [address] 2021-06-03 2021-06-05 Outpatient DENI, [facility] [id number] [place] 00:00:00 00:00:00 MARISA [address] 2021-05-28 2021-05-28 Outpatient OPARSEN, [facility] [id number] [place] [place] 00[place]00[place]00 00:00:00 ANTONIO [address] 2021-05-25 2021-05-25 Outpatient JOANA, [facility] [id number] [place] 00:00:00 00:00:00 ANTONIO [address] 2021-04-29 2021-04-29 Outpatient IHDE_G MMG [facility] [id number] [place] 03:46:00 03:46:00 0624 [facility] Group 2021-04-29 2021-04-29 [place] [id number] [place] 03:46:00 03:46:00 0625 [facility] 2021-04-29 2021-04-29 Yadiel MM [place] - [id number] M sad[place] 00:00:00 00:00:00 Vic Hutchinson MD: [facility] [address], [place] [address] , Ph. [phone] 2021-04-01 2021-04-01 Outpatient [facility] [id number] [place] 00:00:00 00:00:[address] 2021-03-15 2021-03-15 Outpatient OPPERMANN, [facility] 021 [id number] [place] 00:00:00 00:00:00 ANTONIO [address] 2021-03-11 2021-03-11 Outpatient OPPERMANN, [facility] [id number] [place] 00:00:00 00:00:00 ANTONIO [address] 2021-01-19 2021-01-19 Outpatient OPPERMANN, [facility] [id number] [place] 00:00:00 00:00:00 ANTONIO [address] 2021-01-03 2021-01-03 Outpatient IHDE_G MMG MMG [id number] [place] 12:42:00 12:42:00 0228 [facility] Group 2021-01-03 2021-01-03 Outpatient IHDE_G MMG MMG [id number] [place] 12:42:00 12:42:00 0623 [facility] 2020-12-31 2020-12-31 Outpatient IHDE_G MMG MMG [id number] [place] 12:21:00 12:21:00 0225 [facility] 2020-12-31 2020-12-31 Outpatient IHDE_G MMG MMG [id number] [place] 12:21:00 12:21:00 0226 [facility] Group 2020-12-31 2020-12-31 Yadiel [facility] [place] - [id number] [place] 00:00:00 00:00:00 iVc Hutchinson MD: [facility] [address], [place] [address] , Ph. [phone] 2020-12-15 2020-12-15 Outpatient IHDE_G MMG MMG [id number] [place] 05:36:00 05:36:00 0209 Medical Group 2020-12-15 2020-12-15 [facility] [place] - [id number] [place] 00:00:00 00:00:00 Vic Hutchinson MD: [facility] [address], [place] [address] , Ph. [phone] 2020-12-09 2020-12-09 Outpatient SHIMEK_OLYA LINARESHOP MEHOP [id number] [place] 10:13:00 10:13:00 _ANN [facility]10 [facility] 2020-12-09 2020-12-09 Outpatient SHIMEK_OLYA LINARESHOP MEHOP [id number] [place] 10:13:00 10:13:00 _ANN 0209 [facility] 2020-12-09 2020-12-09 Outpatient SHIMEK_OLYA VALENCIA MEHOP [id number] [place] 10:13:00 10:13:00 _ANN 1119 [facility] 2020-12-08 2020-12-08 Outpatient SHIMEK_OLYA VALENCIA MIHOP 685 [place] 12:33:00 12:33:00 _ANN 0202 [facility] 2020-12-08 2020-12-08 Olya VAL[place] - [id number] [place] 00:00:00 00:00:00 Wiley Platt da 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 Program 2020-03-25 2020-03-25 Outpatient SHIMEK_OLYA VALENCIA MIHOP 68 [place] 04:35:00 04:35:00 _ANN 0914 [facility] 2019-09-17 2019-09-17 Olya VALENC[place] - [id number] [place] 00:00:00 00:00:00 Wiley Platt da CALLIOPE PLAYER: 1700 [address] [facility] [address], [address] [address] Progr am , Ph. 2019-09-10 2019-09-10 Olya VALENC[place] - [id number] [place] 00:00:00 00:00:00 Wiley Platt CALLIOPE PLAYER: 1700 [address] [facility] stephenie Serra, [address] [address] Amy reyes , Ph. 2016-09-27 2016-09-27 Outpatient Raju_P MMG MMG [id number] [id number] [place] 03:16:00 03:16:00 0205 [facility] 2016-09-27 2016-09-27 Outpatient Raju_P MMG MMG [id number] [id number] [place] 03:16:00 03:16:00 0609 [facility] Results Test Description Test Time Test Comments Results Result Comments Source SARS-CoV-2 (COVID-19) RNA [Presence] in Respiratory sp ecimen by 2021-07-23 01:09:07 LAKHWINDER with probe detection Test Item Value Reference Range Interpretation Comme nts SARS-CoV-2 (COVID-19) RNA [Presence] in Respiratory Not detected No t-Detected specimen by LAKHWINDER with probe detection (test code = 21063-8) Whether patient is employed in a healthcare setting (test code = 17980-9) Whether the patient has symptoms related to condition of interest (test code = 91835-0) Patient was hospitalized because of this condition (test code = 03914-1) Whether the patient was admitted to intensive care unit (ICU) for condition of interest (test code = 95971-6) Whether patient resides in a congregate care setting (test code = 38118-3) SARS-CoV-2 (COVID-19) RNA [Presence] in Respiratory specimen by LAKHWINDER with probe [id number] 13:28:28 Test Item Value Reference Range Interpretation Comments SARS-CoV-2 (COVID-19) RNA Not detected Not-Detected [Presence] in Respiratory specimen by LAKHWINDER with probe detection (test code = 85580-2) Whether patient is employed in a healthcare setting (test code = 78325-9) Whether the patient has symptoms related to condition of interest (test code = 37725-8) Patient was hospitalized because of this condition (test code = 87162-6) Whether the patient was admitted to intensive care unit (ICU) for condition of interest (test code = 22409-8) Whether patient resides in a congregate care setting (test code = 78407-2) SARS-CoV-2 (COVID-19) RNA [Presence] in Respiratory specimen by LAKHWINDER with probe [id number] 17:27:41 Test Item Value Reference Range Interpretation Comments SARS-CoV-2 (COVID-19) RNA Not detected Not-Detected [Presence] in Respiratory specimen by LAKHWINDER with probe detection (test code = 04992-8) Whether patient is employed in a healthcare setting (test code = 22456-4) Whether the patient has symptoms related to condition of interest (test code = 79755-7) Patient was hospitalized because of this condition (test code = 65757-6) Whether the patient was admitted to intensive care unit (ICU) for condition of interest (test code = 27387-5) Whether patient resides in a congregate care setting (test code = 86857-1) Free T4 and TSH panel - Serum or [id number] 00:00:00 Test Item Value Reference Range Interpretation Comments Thyrotropin [Units/volume] in 0.968 uIU/mL 0.450-4.500 Serum or Plasma by Detection limit <= 0.005 mIU/L (test code = 93028-8) Thyroxine (T4) free 1.12 NG/dL 0.82-1.77 [Mass/volume] in Serum or Plasma (test code = 3024-7) [facility] W Auto Differential panel - Blood [...] = 706-2) immature cells (test code = metal hanging supervisor immature cells) Neutrophils [#/volume] in Blood 3.2 [...] Blood by Automated count (test code = 37923-9) Nucleated erythrocytes/100 metal hanging supervisor leukocytes [Ratio] in Blood by Automated count (test code = 50773-4) Morphology [interpretation] in metal hanging supervisor Blood Narrative (test code = 51137-8) [facility] - Serum or Plasma 2019-09-11 [...] or Plasma by calculation (test code = 91814-3) Cholesterol in LDL [Mass/volume] in 86 mg/dL 0-99 Serum or Plasma by calculation (test code = 31366-1) comment: (test code = comment:) metal hanging supervisor [facility] function 1999 panel - Serum or [id number] 00:00:00 Test Item Value Reference Range Interpretation [...] Serum or Plasma (test code = 1742-6) [facility] A1c/Hemoglobin.total in [id number] 00:00:00 Test Item Value Reference Range Interpretation Comments Hemoglobin A1c/Hemoglobin.total in 8.4 % 4.8-5.6 H Blood (test code = 4548-4) Glucose mean value [Mass/volume] in 194 mg/dL Blood Estimated from glycated hemoglobin (test code = 74513-5) [facility] panel, [id number] 00:00:00 Test Item Value Reference Range Interpretation Comments interpretation (test code = note interpretation) pdf image (test code = pdf image) . [facility]odi[facility] patient [id number] 00:00:00 Test Item Value Reference Range Interpretation Comments pdf image (test code = pdf not applicable image) [facility] TSH panel - Serum or [id number] 00:00:00 Test Item Value Reference Range Interpretation Comments Thyrotropin [Units/volume] in 0.968 uIU/mL 0.450-4.500 Serum or Plasma by Detection limit <= 0.005 mIU/L (test code = 44545-7) Thyroxine (T4) free 1.12 NG/dL 0.82-1.77 [Mass/volume] in Serum or Plasma (test code = 3024-7) [facility] Auto Differential panel - Blood 2019-09-11 [...] = 706-2) immature cells (test code = metal hanging supervisor immature cells) Neutrophils [#/volume] in Blood 3.2 [...] Blood by Automated count (test code = 31797-8) Nucleated erythrocytes/100 metal hanging supervisor leukocytes [Ratio] in Blood by Automated count (test code = 47534-2) Morphology [interpretation] in metal hanging supervisor Blood Narrative (test code = 84792-2) [facility] panel - Serum or Plasma 2019-09-11 00:00:00 [...] or Plasma by calculation (test code = 53280-1) Cholesterol in LDL [Mass/volume] in 86 mg/dL 0-99 Serum or Plasma by calculation (test code = 50900-2) comment: (test code = comment:) metal hanging supervisor [facility] function 1999 panel - Serum or [id number] 00:00:00 Test Item Value Reference Range Interpretation [...] Serum or Plasma (test code = 1742-6) [facility]Hemoglobin A1c/Hemoglobin.total in [id number] 00:00:00 Test Item Value Reference Range Interpretation Comments Hemoglobin A1c/Hemoglobin.total in 8.4 % 4.8-5.6 H Blood (test code = 4548-4) Glucose mean value [Mass/volume] in 194 mg/dL Blood Estimated from glycated hemoglobin (test code = 00216-3) [facility] panel, [id number] 00:00:00 Test Item Value Reference Range Interpretation Comments interpretation (test code = note interpretation) pdf image (test code = pdf image) . [facility]odiabetes patient [id number] 00:00:00 Test Item Value Reference Range Interpretation Comments pdf image (test code = pdf not applicable image) [facility]
[2021-11-18 09:16] LABS: Absolute Lymphocytes (CBC) 1.2 K/uL (0.7-4.9); Hematocrit 27.3 % (36.0-45.0); Lymphocytes % 22.7 % (15.3-44.8); MPV 8.5 fL (7.6-11.3); RBC Red Blood Cell Count 3.52 M/uL (3.86-4.86)
[2021-11-18 09:17] LABS: Protime INR 1.18
[2021-11-18 09:54] LABS: Bilirubin Direct 0.2 mg/dL (0-0.2); Bilirubin Total 0.5 mg/dL (0.2-1.0); Potassium 4.5 mmol/L (3.5-5.1); Protein, Total 8.3 g/dL (6.4-8.2); Troponin High Sensitivity 237.7 pg/mL (<58.9)
[2021-11-18 10:04] LABS: SARS-COV-2 RT PCR NEGATIVE (NEGATIVE)
--- NOTE | 2021-11-18 10:13 | RAD REPORT ---
EXAM DESCRIPTION: RAD - Chest Single View - 11/18/2021 8:46 am CLINICAL HISTORY: SOB Chest pain. COMPARISON: Chest Single View dated 10/28/2021; Chest Single View dated 10/15/2017; Chest Single Vie w dated 09/11/2016; Chest Single View dated 02/11/2016 FINDINGS: Portable technique limits examination quality. Moderate bilateral pulmonary opacities are noted, this may represent pulmonary edema or a viral infec tion. The heart is moderately enlarged. No displaced fractures.Stent material is present upper medial left arm.
--- NOTE | 2021-11-18 10:22 | EDPHYS ---
Physician Documentation [facility] Name: Tulio Smith Age: 61 yrs Sex: Female : 1960 Arrival Date: 11/18/2021 Time: 08:15 Bed 6 Private MD: ED Physician Stacy Dunn HPI: 11/18 08:34 This 61 yrs old Black Female presents to ER via Wheelchair with complaints of Shortness jmm Of Breath. 08:34 The patient has shortness of breath at rest. Onset: The symptoms/episode began/occurred jmm gradually, 1 day(s) ago. Duration: The symptoms are continuous, and are steadily getting worse. The patient's shortness of breath is aggravated by nothing, is alleviated by nothing. Associated signs and symptoms: Pertinent negatives: fever. This is a 61 year old female with a history of esrd, htn, that present to the ED with complaints of progressively worsening sob. Rexceived dialysis yesterday. 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 Historical: - Allergies: 08:59 No Known Allergies; vg1 - Home Meds: 09:05 Premarin 0.9 mg Oral tab 1 tab once daily [Active]; Vitamin D Oral daily [Active]; ww carvedilol 25 mg oral tab take 2 tablets twice a day [Active]; nifedipine 90 mg Oral TbER 1 tab twice a day [Active]; Travatan Z 0.004 % ophthalmic drop 1 drop nightly [Active]; Renvela 800 mg Oral tab 3 tabs 3 times per day [Active]; Crestor 20 mg oral tab 1 tab once daily [Active]; Nexium 40 mg Oral cpDR 1 cap once daily [Active]; Renaltab with zinc daily [Active]; isosorbide mononitrate 60 mg Oral Tb24 1 tab once daily [Active]; ramipril 10 mg Oral cap 1 cap once daily [Active]; Toujeo SoloStar U-300 Insulin 300 unit/mL (1.5 mL) subcutaneous inpn 40-50 units per sliding scale [Active]; - PMHx: 08:59 dialysis; Hypertensive disorder; Glaucoma; vg1 - Immunization history:: Client reports receiving the 2nd dose of the Covid vaccine. - Social history:: Smoking status: Patient denies any tobacco usage or history of. ROS: 08:34 Constitutional: Negative for fever, chills, and weight loss. jmm 08:34 Cardiovascular: Positive for chest pain, with cough. 08:34 Respiratory: Positive for shortness of breath. 08:34 All other systems are negative. Exam: 08:34 Constitutional: This is a well developed, well nourished patient who is awake, alert, jmm and in no acute distress. Head/Face: atraumatic. Eyes: EOMI, no conjunctival erythema appreciated ENT: Moist Mucus Membranes Neck: Trachea midline, Supple Chest/axilla: Normal chest wall appearance and motion. Cardiovascular: Regular rate and rhythm. No edema appreciated 08:34 Back: Normal ROM Skin: General appearance color normal 08:34 Cardiovascular: Heart sounds: murmur. 08:34 Respiratory: the patient does not display signs of respiratory distress, Respirations: normal. 08:34 Musculoskeletal/extremity: ROM: intact in all extremities, mild pedal edema appreciated. 08:34 Skin: Appearance: Color: normal in color. 08:34 Neuro: Motor: is normal. 08:34 Psych: Behavior/mood is pleasant, cooperative. Vital Signs: 08:15 Pulse 78; Resp 22; Temp 98.4; Pulse Ox 93% on R/A; Weight 89.81 kg; Height 5 ft. 3 in. vg1 (160.02 cm); 09:00 BP 133 / 57; Pulse 71; Resp 14; Pulse Ox 97% on R/A; ww 10:30 BP 149 / 69; Pulse 68; Resp 16; Pulse Ox 97% on R/A; ww 11:35 BP 138 / 53; Pulse 71; Resp 18; Pulse Ox 95% on R/A; ww 12:37 BP 140 / 45; Pulse 78; Resp 23; Pulse Ox 95% on R/A; ld1 08:15 Body Mass Index 35.07 (89.81 kg, 160.02 cm) vg1 MDM: 08:34 Patient medically screened. juan 10:20 Data reviewed: vital signs, nurses notes. Counseling: I had a detailed discussion with yara the patient and/or guardian regarding: the historical points, exam findings, and any diagnostic results supporting the discharge/admit diagnosis, lab results, the need for further work-up and treatment in the hospital. ED course: I discussed the patient with Dr. Allen whom accepted the patient for admission. . 11/18 08:35 Order name: Basic Metabolic Panel [facility] 11/18 08:35 Order name: CBC with Diff [facility] 11/18 08:35 Order name: LFT's; Complete Time: 09:57 [facility] 11/18 08:35 Order name: Magnesium; Complete Time: 09:57 [facility] 11/18 08:35 Order name: NT PRO-BNP; Complete Time: 09:57 [facility] 11/18 08:35 Order name: PT-INR; Complete Time: 09:18 [facility] 11/18 08:35 Order name: Troponin HS; Complete Time: 09:57 [facility] 11/18 08:35 Order name: XRAY Chest (1 view); Complete Time: 10:15 [facility] 11/18 08:35 Order name: COVID-19/FLU A+B (Document "Date of Onset" if Symptomatic); Complete Time: [facility] 10:05 11/18 08:35 Order name: Basic Metabolic Panel; Complete Time: 09:57 [facility] 11/18 08:35 Order name: CBC with Automated Diff; Complete Time: 09:20 [facility] 11/18 10:30 Order name: Troponin High Sensitivity [facility] 11/18 10:30 Order name: Troponin High Sensitivity [facility] 11/18 10:30 Order name: Troponin High Sensitivity [facility] 11/18 08:35 Order name: EKG; Complete Time: 08:36 [facility] 11/18 08:35 Order name: Cardiac monitoring; Complete Time: 09:04 [facility] 11/18 08:35 Order name: EKG - Nurse/Tech; Complete Time: 09:04 [facility] 11/18 08:35 Order name: IV Saline Lock; Complete Time: 09:04 [facility] 11/18 08:35 Order name: Labs collected and sent; Complete Time: 09:04 [facility] 11/18 08:35 Order name: O2 Per Protocol; Complete Time: 09:04 [facility] 11/18 08:35 Order name: O2 Sat Monitoring; Complete Time: 09:04 [facility] 11/18 10:30 Order name: CONS Physician Consult [facility] 11/18 10:30 Order name: Renal EDAZ Administered Medications: No medications were administered Disposition Summary: 11/18/21 10:21 Hospitalization Ordered Hospitalization Status: Observation erica Provider: Stacy Allen Location: Telemetry/MedSurg (observation) jmm Condition: Stable jmm Problem: new jmm Symptoms: are unchanged jmm Bed/Room Type: Standard [facility] Room Assignment: 217(11/18/21 12:22) Diagnosis - 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 Forms: - Medication Reconciliation Form jmm - SBAR form jmm Signatures: Dispatcher [employer] Jadyn Wall RN RN Carlito Mcghee PA PA jmm Garcia, Victoria, RN RN 1 Deborah Kinsey Parris Kinsey RN RN ww Corrections: (The following items were deleted from the chart) 08:56 08:54 Allergies: No Known Allergies; 08:56 08:54 PMHx: Diabetes - IDDM; 08:56 08:54 PMHx: ESRD; 08:56 08:54 PMHx: GERD; 08:56 08:54 PMHx: HD M/W/F; 08:56 08:54 PMHx: High Cholesterol; 08:56 08:54 PMHx: Hypertension; 08:56 08:54 Immunization history: Client reports receiving the 2nd dose of the Covid vaccine, 08:56 08:54 Social history: Smoking status: Patient denies any tobacco usage or history of. 12:22 10:21 [facility] dw
--- NOTE | 2021-11-18 10:22 | ER ---
Nurse's Notes [facility] Name: Tulio Smith Age: 61 yrs Sex: Female : 1960 Arrival Date: 11/18/2021 Time: 08:15 Bed 6 Private MD: Diagnosis: Acute on chronic combined systolic (congestive) and diastolic (congestive) heart failure Presentation: 11/18 08:15 Chief complaint: Patient states: SOB began yesterday; stated had dialysis yesterday, vg1 went home and took a nap, woke up and had SOB, states 'still having SOB and chest tightness'. 08:15 Coronavirus screen: Vaccine status: Patient reports receiving the 2nd dose of the covid vg1 vaccine. Client denies travel out of the [place] in the last 14 days. Ebola Screen: Patient negative for fever greater than or equal to 101.5 degrees Fahrenheit, and additional compatible Ebola Virus Disease symptoms. Initial Sepsis Screen: Does the patient meet any 2 criteria? RR > 20 per min. Does the patient have a suspected source of infection? No. Patient's initial sepsis screen is negative. Risk Assessment: Do you want to hurt yourself or someone else? Patient reports no desire to harm self or others. Onset of symptoms was November 17, 2021. 08:15 Method Of Arrival: Wheelchair vg1 08:15 Acuity: CLARICE 3 vg1 Triage Assessment: 08:59 General: Appears in no apparent distress. uncomfortable, Behavior is calm, cooperative. vg1 Pain: Denies pain. Respiratory: Reports shortness of breath at rest on exertion pain with respiration Airway is patent Respiratory effort is even, labored, Respiratory pattern is tachypnea Onset: The symptoms/episode began/occurred 11/17/21, the patient has moderate shortness of breath. Historical: - Allergies: 08:59 No Known Allergies; vg1 - Home Meds: 09:05 Premarin 0.9 mg Oral tab 1 tab once daily [Active]; Vitamin D Oral daily [Active]; ww carvedilol 25 mg oral tab take 2 tablets twice a day [Active]; nifedipine 90 mg Oral TbER 1 tab twice a day [Active]; Travatan Z 0.004 % ophthalmic drop 1 drop nightly [Active]; Renvela 800 mg Oral tab 3 tabs 3 times per day [Active]; Crestor 20 mg oral tab 1 tab once daily [Active]; Nexium 40 mg Oral cpDR 1 cap once daily [Active]; Renaltab with zinc daily [Active]; isosorbide mononitrate 60 mg Oral Tb24 1 tab once daily [Active]; ramipril 10 mg Oral cap 1 cap once daily [Active]; Toualbao SoloStar U-300 Insulin 300 unit/mL (1.5 mL) subcutaneous inpn 40-50 units per sliding scale [Active]; - PMHx: 08:59 dialysis; Hypertensive disorder; Glaucoma; vg1 - Immunization history:: Client reports receiving the 2nd dose of the Covid vaccine. - Social history:: Smoking status: Patient denies any tobacco usage or history of. Screenin:30 Abuse screen: Denies threats or abuse. Denies injuries from another. Nutritional ww screening: No deficits noted. Tuberculosis screening: No symptoms or risk factors identified. Fall Risk None identified. Assessment: 08:50 General: Appears uncomfortable, Behavior is calm, cooperative, appropriate for age. ww Pain: Denies pain. Neuro: Level of Consciousness is awake, alert, obeys commands, Oriented to person, place, time, situation. Cardiovascular: Reports shortness of breath, Denies shortness of breath, Rhythm is regular. Respiratory: Reports shortness of breath at rest on exertion Airway is patent Respiratory effort is labored, Respiratory pattern is regular, symmetrical, GI: No deficits noted. No signs and/or symptoms were reported involving the gastrointestinal system. : hemodialysis patient, received HD yesterday. EENT: No deficits noted. Derm: No deficits noted. No signs and/or symptoms reported regarding the dermatologic system. 09:45 Reassessment: Patient appears in no apparent distress at this time. No changes from ww previously documented assessment. Patient and/or family updated on plan of care and expected duration. Pain level reassessed. Patient is alert, oriented x 3, equal unlabored respirations, skin warm/dry/pink. 10:30 Reassessment: Patient appears in no apparent distress at this time. No changes from ww previously documented assessment. Patient and/or family updated on plan of care and expected duration. Pain level reassessed. Patient is alert, oriented x 3, equal unlabored respirations, skin warm/dry/pink. informed patient she will be admitted to the hospital, answered and addressed all questions and concerns. . 11:34 Reassessment: Patient appears in no apparent distress at this time. Patient and/or ww family updated on plan of care and expected duration. Pain level reassessed. Patient is alert, oriented x 3, equal unlabored respirations, skin warm/dry/pink. 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 12:57 Reassessment: Patient appears in no apparent distress at this time. No changes from ww previously documented assessment. Patient and/or family updated on plan of care and expected duration. Pain level reassessed. Patient is alert, oriented x 3, equal unlabored respirations, skin warm/dry/pink. Vital Signs: 08:15 Pulse 78; Resp 22; Temp 98.4; Pulse Ox 93% on R/A; Weight 89.81 kg; Height 5 ft. 3 in. vg1 (160.02 cm); 09:00 BP 133 / 57; Pulse 71; Resp 14; Pulse Ox 97% on R/A; ww 10:30 BP 149 / 69; Pulse 68; Resp 16; Pulse Ox 97% on R/A; ww 11:35 BP 138 / 53; Pulse 71; Resp 18; Pulse Ox 95% on R/A; ww 12:37 BP 140 / 45; Pulse 78; Resp 23; Pulse Ox 95% on R/A; ld1 08:15 Body Mass Index 35.07 (89.81 kg, 160.02 cm) vg1 ED Course: 08:15 Patient arrived in ED. as 08:23 Carlito Hilton PA is PHCP. [facility] 08:23 Stacy Dunn MD is Attending Physician. [facility] 08:46 XRAY Chest (1 view) In Process Unspecified. EDMS 08:54 Triage completed. tw5 08:59 Arm band placed on. vg1 09:04 Parris Kinsey, RN is Primary Nurse. ww 09:04 Basic Metabolic Panel Sent. ww 09:04 CBC with Diff Sent. ww 09:04 Initial lab(s) drawn, by ED staff, sent to lab. EKG done, by ED staff, reviewed by bryson Dunn MD. Inserted saline lock: 20 gauge in right antecubital area, using aseptic technique. 10:21 Stacy Allen MD is Hospitalizing Provider. [facility] 12:57 No provider procedures requiring assistance completed. Patient admitted, IV remains in ww place. 12:58 Patient has correct armband on for positive identification. Placed in gown. Bed in low ww position. Call light in reach. Side rails up X 1. Adult w/ patient. Administered Medications: No medications were administered Outcome: 10:21 Decision to Hospitalize by Provider. yara 12:57 Admitted to Med/surg accompanied by tech, via stretcher, Other going to HD prior to ww room Report called to Rachel 12:57 Condition: stable 12:57 Instructed on the need for admit. 13:12 Patient left the ED. ld1 Signatures: Dispatcher [employer] EDMS Carlito Hilton PA PA jmm Martinez, Amelia as Leal, Jahala, RN RN jl7 Laura Miller, RN RN claudia1 Jennifer Parrish RN RN ld1 Deborah Kinsey tw5 Parris Kinsey RN RN ww Corrections: (The following items were deleted from the chart) 08:15 Chief complaint: Patient states: SOB began yesterday after dialysis; states after tw dialysis went home to take a nap and work up with SOB; States is still having difficulty breathing and chest tightness. 08:15 Coronavirus screen: Vaccine status: Patient reports receiving the 2nd dose of the covid vaccine. Client denies travel out of the [place] in the last 14 days. 08:15 Ebola Screen: Patient negative for fever greater than or equal to 101.5 degrees tw5 Fahrenheit, and additional compatible Ebola Virus Disease symptoms 08:15 Initial Sepsis Screen: Does the patient meet any 2 criteria? RR > 20 per min. 08:15 Risk Assessment: Do you want to hurt yourself or someone else? Patient reports no desire to harm self or others. 08:15 Onset of symptoms was November 17, 2021 08:15 Method Of Arrival: Wheelchair 08:15 Acuity: CLARICE 3 08:15 Pulse 78bpm; Resp 26bpm; Pulse Ox 95% RA; Temp 98.4F; 89.81 kg; Height 5 ft. 3 tw5 in.; BMI: 35.0; 08: 08:54 Allergies: No Known Allergies; tw 08:56 08:54 PMHx: Diabetes - IDDM; tw 08:56 08:54 PMHx: ESRD; tw 08:56 08:54 PMHx: GERD; tw:56 08:54 PMHx: HD M/W/F; :56 08:54 PMHx: High Cholesterol; tw 08:56 08:54 PMHx: Hypertension; tw 08:56 08:54 Immunization history: Client reports receiving the 2nd dose of the Covid vaccine, :56 08:54 Social history: Smoking status: Patient denies any tobacco usage or history of. tw 08:56 08:54 General: Appears in no apparent distress. uncomfortable, Behavior is calm, tw5 cooperative, 08:56 08:54 Pain: Denies pain. tw 08:56 08:54 Respiratory: Reports shortness of breath at rest on exertion pain with tw5 respiration Onset: The symptoms/episode began/occurred 11/17/21, the patient has moderate shortness of breath 08:54 Arm band placed on tw5 tw5
[2021-11-18] MEDS ORDERED: ACETAMINOPHEN 500 MG TAB PO PRN (10:27)
[2021-11-18] MEDS ORDERED: ONDANSETRON 4 MG/2 ML VIAL IV PRN (10:27)
[2021-11-18] MEDS ORDERED: NA CHLORIDE 0.9% 1,000 ML IV PRN (11:27)
[2021-11-18] MEDS ORDERED: MANNITOL 25% 12.5 GM/50 ML VIAL IV PRN (11:27)
[2021-11-18] MEDS ORDERED: EPOETIN ALFA-EPBX 10,000 UNIT/ML VIAL SQ ONE (11:30)
[2021-11-18] MEDS ORDERED: ALBUMIN HUMAN 25% 50 ML IV SCH (12:00)
[2021-11-18] MEDS: SEVELAMER CARBONATE 800 MG TABLET PO SCH ×2 (12:00→18:37)
[2021-11-18 13:32] VITALS: O2SAT 95
[2021-11-18] MEDS: NEPRO SHAKE 237 ML CAN PO SCH ×2 (14:00→20:15)
[2021-11-18] MEDS: COENZYME Q10- 200 MG CAP PO SCH (18:35)
[2021-11-18] MEDS: carvediloL 25 MG TAB PO SCH (20:15)
[2021-11-18 20:31] VITALS: BMI 35.0
--- NOTE | 2021-11-18 21:01 | P.CNS ---
Date of Consult: 11/18/21 Reason for Consult: ESRD Requesting Physician: Stacy Allen Chief Complaint: Dyspnea History of Present Illness: 61 yo BF CKD, HTN presented to the ER with 1-2 days of moderate, progressive dyspnea with associated malaise in the setting of CHF. 08:34 This 61 yrs old Black Female presents to ER via Wheelchair with complaints of Shortness jmm Of Breath. 08:34 The patient has shortness of breath at rest. Onset: The symptoms/episode began/occurred jmm gradually, 1 day(s) ago. Duration: The symptoms are continuous, and are steadily getting worse. The patient's shortness of breath is aggravated by nothing, is alleviated by nothing. Associated signs and symptoms: Pertinent negatives: fever. This is a 61 year old female with a history of esrd, htn, that present to the ED with complaints of progressively worsening sob. Rexceived dialysis yesterday. 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 Allergies heparin Allergy (Verified 07/28/21 14:27) Hives Home medications list reviewed: Yes Home Medications: Nifedipine [Adalat cc] 90 mg PO DAILY 02/11/16 Estrogens,Conj [Premarin*] 0.9 mg PO DAILY 09/11/16 Isosorbide Mononitrate [Isosorbide Mononitrate ER] 30 mg PO DAILY 09/11/16 Rosuvastatin [Crestor*] 20 mg PO DAILY 09/11/16 Sevelamer Carbonate [Renvela*] 4 tab PO TIDWM 09/11/16 carvediloL [Coreg*] 50 mg PO BID #60 tab 09/13/16 ramipriL [Altace*] 5 mg PO Q12HR #60 cap 09/13/16 Insulin Glargine,Hum.rec.anlog [Toed Sollanie] 40 units SQ DAILY 12/26/17 - Past Medical/Surgical History Diabetic: Yes -: ESRD, hypertension, Diabetes-IDDM -: high cholesterol, -: bilateral eye surgery, hysterectomy -: tubal ligation, C- Section, left arm fistula - Family History mom Medical History: Hypertension dad Medical History: Diabetes - Social History Alcohol use: No CD- Drugs: No Caffeine use: No Review of Systems 10-point ROS is otherwise unremarkable Respiratory: Shortness of Breath, SOB with Excertion Cardiovascular: Edema Physical Examination Temp Pulse Resp BP Pulse Ox 97.6 F 79 17 171/74 H 98 11/18/21 20:00 11/18/21 20:15 11/18/21 20:00 11/18/21 20:15 11/18/21 20:00 General: Oriented x3, Cooperative, Mild distress HEENT: Atraumatic Neck: Supple, JVD distended Respiratory: Diminished Cardiovascular: Regular rate/rhythm, Edema Gastrointestinal: Soft and benign, Non-distended Musculoskeletal: No clubbing, No contractures Integumentary: No rashes, No cyanosis Neurological: Normal speech Laboratory Data (last 24 hrs) 11/18/21 08:55: PT 13.6 H, INR 1.18 11/18/21 08:55: WBC 5.20, Hgb 8.8 L, Hct 27.3 L, Plt Count 200 11/18/21 08:55: Sodium 138, Potassium 4.5, BUN 37 H, Creatinine 7.02 H*, Glucose 134 H, Magnesium 2.0, Total Bilirubin 0.5, AST 31, ALT 41, Alkaline Phosphatase 180 H Imagings Data: EXAM DESCRIPTION: RAD - Chest Single View - 11/18/2021 8:46 am CLINICAL HISTORY: SOB Chest pain. COMPARISON: Chest Single View dated 10/28/2021; Chest Single View dated 10/15/2017; Chest Single View dated 09/11/2016; Chest Single View dated 02/11/2016 FINDINGS: Portable technique limits examination quality. Moderate bilateral pulmonary opacities are noted, this may represent pulmonary edema or a viral infection. The heart is moderately enlarged. No displaced fractures.Stent material is present upper medial left arm. Conclusions/Impression: ESRD -Acute HD HTN with CKD/ CHF -Continue Coreg -Continue Nifedipine Diastolic CHF, A/C -Acute HD with UF DM II with CKD -Continue Lantus Mild malnlutrition -Start Nepro Anemia in CKD -Retacrit X1 CKD MBD -Start Vitamin D -Continue Renvela Thank you kindly for the consultation. Case reviewed with Dr. Allen
[2021-11-19 06:38] LABS: Hematocrit 27.1 % (36.0-45.0); Lymphocytes % 18.4 % (15.3-44.8); MPV 8.8 fL (7.6-11.3); RBC Red Blood Cell Count 3.46 M/uL (3.86-4.86)
[2021-11-19 07:15] LABS: Albumin 2.8 g/dL (3.4-5.0); Bilirubin Total 0.5 mg/dL (0.2-1.0); Potassium 4.2 mmol/L (3.5-5.1); Protein, Total 7.7 g/dL (6.4-8.2)
[2021-11-19 07:26] LABS: Troponin High Sensitivity 236.9 pg/mL (<58.9)
[2021-11-19] MEDS: carvediloL 25 MG TAB PO SCH (08:22)
[2021-11-19] MEDS: SEVELAMER CARBONATE 800 MG TABLET PO SCH ×3 (08:23→16:14)
[2021-11-19] MEDS: NEPRO SHAKE 237 ML CAN PO SCH ×2 (08:24→14:00)
[2021-11-19] MEDS ORDERED: NIFEDIPINE XL 90 MG TABLET PO SCH (09:00)
[2021-11-19] MEDS ORDERED: VITAMIN D 5,000 UNIT CAP PO SCH (09:00)
[2021-11-19] MEDS ORDERED: INSULIN GLARGINE 100 UNIT/ML SQ SCH (09:00)
[2021-11-19] MEDS ORDERED: ISOSORBIDE MONO SR 30 MG TAB PO SCH (09:00)
[2021-11-19] MEDS ORDERED: HOME MED 1 EA UNK (Insulin Glargine,Hum.Rec.Anlog [Toujeo Solostar] 300 UNIT/ML Insuln.Pen SQ SCH (09:00)
[2021-11-19] MEDS ORDERED: CALCITROL 0.25 MCG CAP PO SCH (09:00)
[2021-11-19] MEDS: COENZYME Q10- 200 MG CAP PO SCH (12:47)
[2021-11-19 12:57] VITALS: TEMP 97.3
[2021-11-19 16:47] VITALS: BP 110/51
--- NOTE | 2021-11-19 20:40 | P.PN ---
Date of Service: 11/19/21 Vital Signs Temp Pulse Resp BP Pulse Ox 97.3 F 81 16 110/51 L 91 11/19/21 16:00 11/19/21 16:00 11/19/21 16:00 11/19/21 16:00 11/19/21 16:00 Assessment/ Plan: Nephrology No dyspnea. Feeling much better today post dialysis. No chest pain No acute events overnight Vitals, medications, blood work and imaging reviewed in the chart General: Oriented x3, Cooperative, Mild distress HEENT: Atraumatic Neck: Supple, JVD distended Respiratory: Diminished Cardiovascular: Regular rate/rhythm, Edema Gastrointestinal: Soft and benign, Non-distended Musculoskeletal: No clubbing, No contractures Integumentary: No rashes, No cyanosis Neurological: Normal speech Laboratory Data (last 24 hrs) 11/18/21 08:55: PT 13.6 H, INR 1.18 11/18/21 08:55: WBC 5.20, Hgb 8.8 L, Hct 27.3 L, Plt Count 200 11/18/21 08:55: Sodium 138, Potassium 4.5, BUN 37 H, Creatinine 7.02 H*, Glucose 134 H, Magnesium 2.0, Total Bilirubin 0.5, AST 31, ALT 41, Alkaline Phosphatase 180 H Imagings Data: EXAM DESCRIPTION: RAD - Chest Single View - 11/18/2021 8:46 am CLINICAL HISTORY: SOB Chest pain. COMPARISON: Chest Single View dated 10/28/2021; Chest Single View dated 10/15/2017; Chest Single View dated 09/11/2016; Chest Single View dated 02/11/2016 FINDINGS: Portable technique limits examination quality. Moderate bilateral pulmonary opacities are noted, this may represent pulmonary edema or a viral infection. The heart is moderately enlarged. No displaced fractures.Stent material is present upper medial left arm. Conclusions/Impression: ESRD -Acute HD today HTN with CKD/ CHF -Continue Coreg -Continue Nifedipine Diastolic CHF, A/C -Acute HD with UF DM II with CKD -Continue Lantus Mild malnlutrition -Continue Nepro Anemia in CKD -Retacrit prn CKD MBD -Continue Vitamin D -Continue Renvela Case reviewed with Dr. Allen
--- NOTE | 2021-11-22 02:04 | P.HP ---
Certification for Inpatient Patient admitted to: Inpatient With expected LOS: >2 Midnights Patient will require the following post-hospital care: None Practitioner: I am a practitioner with admitting privileges, knowledge of patient current condition, hospital course, and medical plan of care. Services: Services provided to patient in accordance with Admission requirements found in Title 42 Section 412.3 of the Code of Federal Regulations Patient History Date of Service: 11/18/21 Reason for admission: Dyspnea History of Present Illness: Patient is a 61-year-old female came to the hospital with shortness of breath. Patient is a hemodialysis patient and was fluid overloaded. Patient was started on hemodialysis per Nephrology. Decision was made to admit the patient during the night for further treatment. Patient will need to be more compliant going forward. Allergies heparin Allergy (Verified 07/28/21 14:27) Hives Home Medications: Nifedipine [Adalat cc] 90 mg PO DAILY 02/11/16 Estrogens,Conj [Premarin*] 0.9 mg PO DAILY 09/11/16 Isosorbide Mononitrate [Isosorbide Mononitrate ER] 30 mg PO DAILY 09/11/16 Rosuvastatin [Crestor*] 20 mg PO DAILY 09/11/16 Sevelamer Carbonate [Renvela*] 4 tab PO TIDWM 09/11/16 carvediloL [Coreg*] 50 mg PO BID #60 tab 09/13/16 ramipriL [Altace*] 5 mg PO Q12HR #60 cap 09/13/16 Insulin Glargine,Hum.rec.anlog [Toualbao Solostar] 40 units SQ DAILY 12/26/17 Calcitrol [Rocaltrol*] 0.5 mcg PO DAILY #30 cap 11/19/21 Cholecalciferol (Vitamin D3) [Vitamin D 5,000 IU Cap*] 5,000 unit PO DAILY #30 cap 11/19/21 Nepro Shake [Nepro*] 237 ml PO TID #30 can 11/19/21 - Past Medical/Surgical History Has patient received pneumonia vaccine in the past: No Diabetic: Yes -: ESRD, hypertension, Diabetes-IDDM -: high cholesterol, -: bilateral eye surgery, hysterectomy -: tubal ligation, C- Section, left arm fistula - Family History mom Medical History: Hypertension dad Medical History: Diabetes - Social History Smoking Status: Former smoker Alcohol use: No CD- Drugs: No Caffeine use: No Review of Systems 10-point ROS is otherwise unremarkable Physical Examination - Vital Signs Temperature: 97.3 F Blood Pressure: 110/51 Pulse: 81 Respirations: 16 Pulse Ox (%): 91 - Physical Exam General: Alert, In no apparent distress, Oriented x3 HEENT: Atraumatic, PERRLA, Mucous membr. moist/pink, EOMI, Sclerae nonicteric Neck: Supple, 2+ carotid pulse no bruit, No LAD, Without JVD or thyroid abnormality Respiratory: Clear to auscultation bilaterally, Normal air movement Cardiovascular: Regular rate/rhythm, Normal S1 S2, No murmurs Gastrointestinal: Normal bowel sounds, Soft and benign, Non-distended, No tenderness Musculoskeletal: No clubbing, No swelling, No tenderness Integumentary: No rashes Neurological: Normal gait, Normal speech, Normal strength at 5/5 x4 extr, Normal tone, Sensation intact, Cranial nerves 3-12 intact, Normal affect Lymphatics: No axilla or inguinal lymphadenopathy Assessment & Plan - Problems (Diagnosis) (1) Pulmonary edema Onset Date: 09/14/16 Status: Acute Qualifiers: Chronicity: acute Qualified Code(s): J81.0 - Acute pulmonary edema (2) End-stage renal disease on hemodialysis Onset Date: 09/14/16 Status: Chronic - Plan Plan: 1. Consult Nephrology for hemodialysis 2. Dialyze 3. Strict blood pressure control 4. Anticipate discharge in the morning Discharge Plan: Home Plan to discharge in: Greater than 2 days - Advance Directives Does patient have a Living Will: No Does patient have a Durable POA for Healthcare: No - Code Status/Comfort Care Code Status Assessed: Yes Code Status: Full Code Critical Care: No Time Spent Managing PTS Care (In Minutes): 45
--- NOTE | 2021-11-22 02:05 | P.DS ---
Discharge Date: 11/19/21 Disposition: ROUTINE DISCHARGE Discharge Condition: GOOD Reason for Admission: Dyspnea Consultations: Nephrology - Problems (1) Pulmonary edema Onset Date: 09/14/16 Status: Acute Qualifiers: Chronicity: acute Qualified Code(s): J81.0 - Acute pulmonary edema (2) End-stage renal disease on hemodialysis Onset Date: 09/14/16 Status: Chronic Brief History of Present Illness: Patient is a 61-year-old female came to the hospital with shortness of breath. Patient is a hemodialysis patient and was fluid overloaded. Patient was started on hemodialysis per Nephrology. Decision was made to admit the patient during the night for further treatment. Patient will need to be more compliant going forward. Hospital Course: Patient was dialyzed and patient is clinically doing better. At this time, patient is stable for discharge home. Vital Signs/Physical Exam: Temp Pulse Resp BP Pulse Ox 97.3 F 81 16 110/51 L 91 11/22/21 02:03 11/22/21 02:03 11/22/21 02:03 11/22/21 02:03 11/22/21 02:03 General: Alert, In no apparent distress, Oriented x3 Laboratory Data at Discharge: WBC 5.30 K/uL (4.3-10.9) 11/19/21 05:58 Hgb 8.7 g/dL (12.0-15.0) L 11/19/21 05:58 Hct 27.1 % (36.0-45.0) L 11/19/21 05:58 Plt Count 180 K/uL (152-406) 11/19/21 05:58 PT 13.6 SECONDS (9.5-12.5) H 11/18/21 08:55 INR 1.18 11/18/21 08:55 Sodium 136 mmol/L (136-145) 11/19/21 05:58 Potassium 4.2 mmol/L (3.5-5.1) 11/19/21 05:58 BUN 43 mg/dL (7-18) H 11/19/21 05:58 Creatinine 6.38 mg/dL (0.55-1.3) H* 11/19/21 05:58 Glucose 251 mg/dL (74-106) H 11/19/21 05:58 Phosphorus 3.0 mg/dL (2.5-4.9) 11/19/21 05:58 Magnesium 2.0 mg/dL (1.8-2.4) 11/18/21 08:55 Total Bilirubin 0.5 mg/dL (0.2-1.0) 11/19/21 05:58 AST 17 U/L (15-37) 11/19/21 05:58 ALT 31 U/L (12-78) 11/19/21 05:58 Alkaline Phosphatase 163 U/L (45-117) H 11/19/21 05:58 Home Medications: Nifedipine [Adalat cc] 90 mg PO DAILY 02/11/16 Estrogens,Conj [Premarin*] 0.9 mg PO DAILY 09/11/16 Isosorbide Mononitrate [Isosorbide Mononitrate ER] 30 mg PO DAILY 09/11/16 Rosuvastatin [Crestor*] 20 mg PO DAILY 09/11/16 Sevelamer Carbonate [Renvela*] 4 tab PO TIDWM 09/11/16 carvediloL [Coreg*] 50 mg PO BID #60 tab 09/13/16 ramipriL [Altace*] 5 mg PO Q12HR #60 cap 09/13/16 Insulin Glargine,Hum.rec.anlog [Toujeo Solostar] 40 units SQ DAILY 12/26/17 Calcitrol [Rocaltrol*] 0.5 mcg PO DAILY #30 cap 11/19/21 Cholecalciferol (Vitamin D3) [Vitamin D 5,000 IU Cap*] 5,000 unit PO DAILY #30 cap 11/19/21 Nepro Shake [Nepro*] 237 ml PO TID #30 can 11/19/21 New Medications: Nepro Shake [Nepro*] 237 ml PO TID #30 can Calcitrol [Rocaltrol*] 0.5 mcg PO DAILY #30 cap Cholecalciferol (Vitamin D3) [Vitamin D 5,000 IU Cap*] 5,000 unit PO DAILY #30 cap Physician Discharge Instructions: OK TO DC IV AND DC HOME FOLLOW-UP WITH PCP IN 1-2 WEEKS FOLLOW-UP WITH NEPHROLOGY IN 1-2 WEEKS RETURN TO THE ER IF SYMPTOMS WORSENS CALL DR. ASCENCIO AT [phone] IF ANY QUESTIONS REGARDING HOSPITAL STAY CALL NURSING STATION AT [phone] IF ANY QUESTIONS REGARDING MEDICATION RECEIVED OR NURSING ISSUES Diet: Renal Activity: Fall precautions Followup: Wellington Arora DO [ACTIVE - CAN ADMIT] - NONE,NONE [Primary Care Provider] - Time spent managing pt's care (in minutes): 35
== END 2021-11-19 18:02 | disposition home or self-care (01) | DRG 291 ==
LOC: ER 08:15 → ERHOLD 10:22 → 2ND 12:58
PROVIDERS: ADMIT Hospitalist; ATTEND Hospitalist
PROC: 5A1D70Z Performance of Urinary Filtration, Intermittent, Less than 6 Hours Per Day (ICD-10-PCS; principal; 2021-11-18)
DX: I13.2 Hypertensive heart and chronic kidney disease with heart failure and with stage 5 chronic kidney disease, or end stage renal disease (principal); I50.33 Acute on chronic diastolic (congestive) heart failure; N18.6 End stage renal disease; E44.1 Mild protein-calorie malnutrition; E11.22 Type 2 diabetes mellitus with diabetic chronic kidney disease; D63.1 Anemia in chronic kidney disease; M89.9 Disorder of bone, unspecified; Z99.2 Dependence on renal dialysis; Z79.4 Long term (current) use of insulin; Z79.899 Other long term (current) drug therapy; Z88.8 Allergy status to other drugs, medicaments and biological substances; Z90.710 Acquired absence of both cervix and uterus; Z98.51 Tubal ligation status; Z68.35 Body mass index [BMI] 35.0-35.9, adult; Z20.822 Contact with and (suspected) exposure to COVID-19
CPT/HCPCS: 0240U; 36415; 71045; 80048; 80053; 80076; 82947; 83735; 83880; 84100; 84484; 85025; 85610; 90935; 93005; 99285; J2405; Q5106

== ENCOUNTER 2021-12-25 10:44 | Observation (INO) | payer OTHER ==
--- OUTSIDE RECORDS SUMMARY | 2021-12-25 10:50 | XMS REPORT | Continuity of Care Document ---
:1960 Author Organization [facility] t Address [address] [place] [address] Care Team Providers Name Role Phone Pcp, Does Not Have A Primary Care Physician SALENA Attending Clinician Unavailable ANDRY Attending Clinician Unavailable Andry HERNANDEZ Attending Clinician Doctor Unassigned, Name Attending Clinician Unavailable LONDON Attending Clinician Unavailable MD LONDON Attending Clinician Unavailable RIAK Attending Clinician Unavailable DENI Attending Clinician Unavailable [...] Number Effective Date Expiration Date S vignesh [facility] MEDICARE [id number] COMPLETE (MEDICARE REPLACEMENT HMO) SANDRA/MAYTE [id number] 2021 MEDICARE ADVANTAGE 00:00:00 MEDICARE A-[place]: [id number] [employer] - 00:00:00 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 00 al Health Outreac h Program Umbilical Umbilical Problem Active [facility] [place] hernia Hernia 2-02 da 00:00: [facility] Anemia Anemia Problem Active 2018-11 [place] 106 da 00:00: [facility] 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: [place] with ESRD with ESRD 00 Medi jalil (end-stage (end-stage Br anch renal renal disease) disease) Dyslipidem Dyslipidem Disease Active U nivers ia ia 11-14 ity of 00:00: [place] 00 Medical Branch Essential Essential Disease Active Uni vers hypertensi hypertensi 11-14 it y of on on 00:00: [place] 00 Medical Branch Hyperlipid Hyperlipid Problem Active [...] iscop 00 al Health Outreac h Program History of History of Problem Active M [facility] adenomatou Adenomatou 5-10 da s polyp of s Polyp of 00:00: Ep iscop colon Colon 00 al Health Outreac h Program Fever Fever Problem Active [place] 4-07 da 00:00: [facility] 00 nh [facility]re[facility] Program Renal Renal Problem [...] Legal Problem Active [place] blindness Blindness da [facility] Hypertensi Hypertensi Problem Active M [place] ve renal ve Renal da failure [facility] Chronic Chronic Problem Active [place] kidney Kidney da disease Disease [facility] Heart Heart Problem Active [place] murmur Murmur da [facility] Hemodialys Hemodialys Problem Active M at[place] is is da [facility] Multiple Multiple Problem Active [place] [facility] complicati Complicati da ons due to ons Due to Ep iscop type 2 Type 2 al diabetes Diabetes Health mellitus Mellitus Outrea c h Program Diabetes Diabetes Problem Active [place] mellitus Mellitus da [facility] Hypervolem Hypervolem Problem Active M [place] ia ia da [facility] Hypertensi Hypertensi Problem Active M [place] ve urgency ve Urgency da [facility] End stage End Stage Problem Active [place] renal Renal da failure on Failure on Ep iscop dialysis Dialysis nh Health Outreac h Program End-stage End-stage Problem Active [place] renal Renal da disease Disease [facility] Dyspnea Dyspnea Problem Active [place] [facility] Abdominal Abdominal Problem Active [place] pain Pain da [facility] Allergies, Adverse Reactions, [...] s Branch Heparin Allergy Active [place] to 07 da substanc 00:00: [facility] e 00 [facility] Outreac h Program Social History Social Habit Start Date Stop Date Quantity Comments Source Exposure to Not sure [facility] SARS-CoV-2 (event) Medica l Branch Tobacco use and 2017-11-14 2017-11-14 Never used [facility] exposure 00:00:00 00:00:00 Medical Branch Sex Ass[birth year] At [birth year] [facility] 00:00:00 00:00:00 Medical Branch Smoking Status Start Date Stop Date Source Never Smoker [place] [facility] Medications Ordered Filled Start Stop Current Ordering Indication Dosage Frequency Signature Comments Components Source Medication Medication Date Date Medication? Clinician (SIG) Name Name RADHA Yes [id number] INJECT Unive rs SOLOSTAR 6-27 40-50 ity of U-300 00:00: UNITS [place] INSULIN 300 00 UNDER THE Med ical unit/mL SKIN Branch (1.5 mL) DAILY. InPn RADHA Yes [id number] INJECT Unive rs SOLOSTAR 6-27 40-50 ity of U-300 00:00: UNITS [place] INSULIN 300 00 UNDER THE Med ical unit/mL SKIN Branch (1.5 mL) DAILY. InPn RADHA Yes [id number] INJECT Unive rs SOLOSTAR 6-27 40-50 ity [...] mouth ity of Vitamin D3, 14:35: daily. Anselmo s (VITAMIN 39 Medical D3) 5,000 Branch unit tablet carvedilol 2017-0 Yes 50mg Take 50 mg U nivers 25 mg 1-09 by mouth 2 ity of tablet 14:35: (two) [place] 39 times Medical daily with Branch meals. NIFEdipine 2018-0 Yes 90mg Take 90 mg U nivers XL 90 mg 24 1-09 by mouth ity of hr tablet 14:35: daily. [place] [address] Medical Branch travoprost 2017-0 Yes 1[drp] Place 1 Un payal (TRAVATAN 1-09 Drop in ity of Z) 0.004 % 14:35: left eye [place] as ophthalmic 39 at Medical solution bedtime. Branch sevelamer 2017-0 Yes 1600mg Take 1,600 Univers 800 mg 1-09 mg by ity of tablet 14:35: mouth 3 [place] 39 (three) Medical times Branch daily with [...] Medical D3) 5,000 Branch unit tablet carvedilol 2018-0 Yes 50mg Take 50 mg U nivers 25 mg 1-09 by mouth 2 ity of tablet 14:35: (two) [place] 39 times Medical daily with Branch meals. NIFEdipine 2018-0 Yes 90mg Take 90 mg U nivers XL 90 mg 24 1-09 by mouth ity of hr tablet 14:35: daily. [place] [address] Medical Branch travoprost 2017-0 Yes 1[drp] Place 1 Un payal (TRAVATAN 1-09 Drop in ity of Z) 0.004 % 14:35: left eye [place] as ophthalmic 39 at Medical solution bedtime. Branch sevelamer 2017-0 Yes 1600mg Take 1,600 Univers 800 mg 1-09 mg by ity of tablet 14:35: mouth 3 [place] 39 (three) Medical times Branch daily with [...] mouth 2 ity of tablet 14:35: (two) [place] [address] times Medical daily with Branch meals. NIFEdipine Yes 90mg Take 90 mg U nivers XL 90 mg 24 1-09 by mouth ity of hr tablet 14:35: daily. [place] [address] Medical Branch travoprost Yes 1[drp] Place 1 Un payal (TRAVATAN 1-09 Drop in ity of Z) 0.004 % 14:35: left eye [place] as ophthalmic 39 at Medical solution bedtime. Branch sevelamer Yes 1600mg Take 1,600 Univers 800 mg 1-09 mg by ity of tablet 14:35: mouth 3 [place] 39 (three) Medical times Branch daily with meals. rosuvastati Yes 20mg Take 20 mg Univers n (CRESTOR) 1-09 by mouth ity of 20 mg 14:35: at [place] tablet 39 bedtime. Medical Branch esomeprazol Yes 40mg Take 40 mg Univers e 40 mg 1-09 by mouth ity of capsule 14:35: daily [place] 39 breakfast. Medical Branch conjugated conjugated 2015-11 No .9MG conjugated [place] estrogens estrogens 1-06 estrogens da 0.3 mg 0.3 mg 00:00: 0.3 mg [facility] tablet 0.9 tablet 0.9 00 tablet al mg by oral mg by oral 0.9 mg by Health route. route. oral Outreac route. h Program ondansetron ondansetron 2015-11 No 8MG ondansetro [place] 8 mg 8 mg -06 n 8 mg da disintegrat disintegrat 00:00: disintegra [facility] ing tablet ing tablet 00 ting al 8 mg by 8 mg by tablet 8 Heal th oral route. oral route. mg by oral Outreac route. h Program rosuvastati rosuvastati No rosuvastat [place] [...] DAILY INTHE DAILY EVENING EVENING INTHE EVENING BD BD No BD [place] Ultra-Fine Ultra-Fine [...] Program cholecalcif cholecalcif No cholecalci [place] jac keene da (vitamin (vitamin (vitamin Epi scop D3) [...] A DAY TWICE A h DAY Program GaviLyte-G GaviLyte-G No 2000mL BID GaviLyte-G [place] 236 236 236 da gram-22.74 gram-22.74 gram-22.74 [facility] gram-6.74 gram-6.74 gram-6.74 al gram-5.86 gram-5.86 gram-5.86 Health gram oral gram oral gram oral Outreac solution solution solution h Take 2000 Take 2000 Take 2000 Program mL twice a mL twice a mL twice a day by oral day by oral day by route for 1 route for 1 oral route day. day. for 1 day. insulin insulin No insulin [place] aspar [...] DAILY MOUTH ONCE Outreac DAILY h Program Cesia-Michael Cesia-Michael No Cesia-Michael [place] [...] tablet tablet al Health Outreac h Program sucralfate sucralfate No sucralfate [place] [...] a route. route. day by oral route. Immunizations Ordered Immunization Filled Immunization Date Status Commen ts Source Name Name influenza, influenza, 2021-08-06 Completed [place] injectable, injectable, 00:00:00 [facility] alth quadrivalent quadrivalent Outreach P rogram COVID-19 vaccine, COVID-19 vaccine, 2021-01-10 Completed [place] vector-nr, rS-Ad26, vector-nr, rS-Ad26, 00:00:00 [facility] PF, 0.5 mL (Resource Data) PF, 0.5 mL (Resource Data) Outreach Program pneumococcal pneumococcal 2020-11-23 Completed [place] polysaccharide PPV23 polysaccharide PPV23 00:00:00 [facility] Outreach Progr am influenza, influenza, 2020-08-06 Completed [place] injectable, injectable, 00:00:00 [facility]th quadrivalent quadrivalent Outreach P rogram influenza, influenza, 2019-08-06 Completed [place] injectable, injectable, 00:00:00 [facility] quadrivalent quadrivalent Outreach P rogram Tdap Tdap 2016-11-06 Completed [place] 00:00:00 [facility] Outreach Progr am Influenza Virus [...] Completed Universit y of Conjugate, PCV13 00:00:00 [facility] dical (Prevnar 13) Branch PPD (TB) 2011-06-22 Completed University of 00:00:00 [facility] Pneumococcal 13 2011-06-22 Completed Universit y of Conjugate, PCV13 00:00:00 [facility] dical (Prevnar 13) Branch PPD (TB) 2011-06-22 Completed University of 00:00:00 [facility] Pneumococcal 13 2011-06-22 Completed Universit y of Conjugate, PCV13 00:00:00 [facility] dical (Prevnar 13) Branch PPD (TB) 2011-06-22 Completed University of 00:00:00 [facility] Vital Signs Vital Name Observation Time Observation Value Comments Source BP Diastolic 2021-12-02 00:00:00 64 [facility]Hg[facility] Height 2021-12-02 00:00:00 63 [in_i] [facility] BMI (Body Mass 2021-12-02 00:00:00 35.1 kg/m2 [place] 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 Spirit[facility] Index) Health Outreach Program BP Systolic 2021-12-02 00:00:00 113 mm[facility]Hg] [facility] Body Weight 2021-12-02 00:00:00 198 [lb_av] [facility] BP Diastolic 2021-11-15 00:00:00 67 mm[Hg] [facility] Height 2021-11-15 00:00:00 63 [in_i] [facility] BMI (Body Mass 2021-11-15 00:00:00 35.2 kg/m2 [place] 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 Spirit[facility] Index) Health Outreach Program BP Systolic 2021-11-15 00:00:00 135 mm[Hg] [place] [facility] Body Weight 2021-11-15 00:00:00 198.8 [lb_av] [place] [facility] BP Diastolic 2021-10-27 00:00:00 64 mm[Hg] [place] [facility] Height 2021-10-27 00:00:00 63 [in_i] [place] [facility] BMI (Body Mass 2021-10-27 00:00:00 36.1 kg/m2 [place] 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 Spirit[facility] Index) Health Outreach Program BP Systolic 2021-10-27 00:00:00 136 mm[Hg] [place] [facility] Body Weight 2021-10-27 00:00:00 3264 [oz_av] [place] [facility] Systolic blood 2021-09-13 17:06:00 157 mm[Hg] [facility] pressure [facility] Branch Diastolic blood 2021-09-13 17:06:00 80 mm[Hg] [facility] pressure [facility] Branch Heart rate 2021-09-13 17:04:00 63 /min [facility] Body weight 2021-09-13 17:04:00 90.266 kg [facility] Oxygen saturation 2021-09-13 17:04:00 96 /min [facility] in Arterial blood Medical Br anch by Pulse oximetry BP Diastolic 2021-04-29 00:00:00 70 mm[Hg] [facility] Height 2021-04-29 00:00:00 63 [in_i] [facility] BMI (Body Mass 2021-04-29 00:00:00 36.7 kg/m2 [place] 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 Medical Index) Group BP Systolic 2021-04-29 00:00:00 130 mm[Hg] [facility] Body Weight 2021-04-29 00:00:00 207 [lb_av] [facility] BP Diastolic 2020-12-31 00:00:00 68 mm[Hg] [facility] Height 2020-12-31 00:00:00 63 [in_i] [facility] BMI (Body Mass 2020-12-31 00:00:00 37.6 kg/m2 [place] 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 Medical Index) Group BP Systolic 2020-12-31 00:00:00 136 mm[Hg] [facility] Body Weight 2020-12-31 00:00:00 212 [lb_av] [facility] BP Diastolic 2020-12-08 00:00:00 72 mm[Hg] [place] [facility] Height 2020-12-08 00:00:00 63 [in_i] [place] [facility] BMI (Body Mass 2020-12-08 00:00:00 37 kg/m2 [place] 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 [facility] Index) Health Outreach Program BP Systolic 2020-12-08 00:00:00 144 mm[Hg] [place] [facility] Body Weight 2020-12-08 00:00:00 3344 [oz_av] [place] [facility] BP Diastolic 2019-09-17 00:00:00 80 mm[Hg] [place] [facility] Height 2019-09-17 00:00:00 63 [in_i] [place] [facility] BMI (Body Mass 2019-09-17 00:00:00 35.3 kg/m2 [place] 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 Spirit[facility] Index) Health Outreach Program BP Systolic 2019-09-17 00:00:00 150 mm[Hg] [place] [facility] Body Weight 2019-09-17 00:00:00 199 [lb_av] [place] [facility] BP Diastolic 2019-09-10 00:00:00 76 mm[Hg] [place] [facility] Height 2019-09-10 00:00:00 63 [in_i] [place] [facility] BMI (Body Mass 2019-09-10 00:00:00 35.6 kg/m2 [place] 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 Spirit[facility] Index) Health Outreach Program BP Systolic 2019-09-10 00:00:00 144 mm[Hg] [place] [facility] Body Weight 2019-09-10 00:00:00 200.9 [lb_av] [place] [facility] Procedures Procedure Date / Time Performing Clinician Source Performed TRANSTHORACIC ECHO (TTE) 2021-09-21 19:32:00 Jose Lester [facility] Ione CONSENT/REFUSAL FOR 2021-09-21 19:01:46 Doctor Unassleonel, [facility] DIAGNOSIS AND TREATMENT [place] [facility] ASSIGNMENT OF BENEFITS 2021-09-21 19:01:15 [facility] [place] [facility] HB ECG ROUTINE & RHYTHM 2021-09-13 17:08:28 Jose Lester [facility] STRIP Medical Branch EXTERNAL PROVIDER - ADC 2021-08-12 05:01:00 Doctor Unassigned, U [facility] REFERRAL [place] [facility] Cholecystectomy 2021-08-06 00:00:00 [facility] Outreach [facility] MR, 2020-12-31 00:00:00 [facility] Pa dical cholangiopancreatogram, w/ Group contrast unlisted imaging order 2020-12-15 00:00:00 Declan [facility] MAMMO, screening, digital, 2020-12-08 00:00:00 [place] [facility] bilateral Health Outreach Program CT, abdomen + pelvis, w/ 2020-12-08 00:00:00 Ant agokodya [facility] contrast Health Outreach Program MAMMO, screening, digital, 2019-09-10 00:00:00 [place] [facility] Outreach Program DEXA, axial skeleton 2019-09-10 00:00:00 Z[facility] da [facility] Colonoscopy 2016-03-15 00:00:00 [place] [facility] Total Hysterectomy 2009-11-06 00:00:00 [place] [facility] Section 1988-11-06 00:00:00 [place] E [facility] Graft of Skin to Skin [facility] Bilateral Tubal Ligation Z[facility]reh [facility] Encounters Start End Encounter Admission Attending Care Care Encounter Source Date/Time Date/Time Type Type Clinicians Facility Department ID 2021-12-14 2021-12-14 Outpatient QASIM VALENCIA [id number] [place] 06:44:00 06:44:00 _ANN 0208 [facility] 2021-12-10 2021-12-10 Outpatient QASIM VALENCIA [facility] 68 [place] 02:13:00 02:13:00 _ANN 0204 da [facility] 2021-12-02 2021-12-02 Outpatient QASIM VALENCIA [facility] 68 [place] 05:37:00 05:37:00 _ANN 0127 da [facility] 2021-12-02 2021-12-02 Outpatient QASIM VALENCIA [facility] 68 [place] 05:37:00 05:37:00 _ANN 0201 da [facility] 2021-12-02 2021-12-02 Maverick Nelson [facility] [place] - [id number] [place] 00:00:00 00:00:00 Wiley Breen MD: 1700 [facility] [place] Outreac [address] h , Ph. 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 2021-10-27 2021-10-27 Outpatient QASIM [place] [id number] [place] 03:20:00 03:20:00 _ANN 1222 da [facility] Outre[facility] Program 2021-10-27 2021-10-27 Olya Calle [facility] [place] - [id number] [place] 00:00:00 00:00:00 EugeniaphoenixWiley POLLUTION CONTROL TECHNICIAN: 1700 [facility] - [place], [address] [address] , Ph. Program 2021-09-21 2021-09-21 Outpatient R [facility] [id number] Univers 13:00:00 23:59:00 JOSE mittal [facility] 2021-09-21 2021-09-21 Hospital [facility] [id number] Univers 13:00:00 23:59:00 Encounter Jose WISE [id number] ity of [id number] [id number] [facility] 850 Branch 2021-09-13 2021-09-13 Outpatient R [facility] [id number] Univers 11:00:00 11:27:51 JOSE kahn [facility] 2021-09-13 2021-09-13 Office [facility] [id number] Univers 10:48:07 11:27:51 Visit Jose WISE [id number] ity of [place] [id number] [place] [facility] [id number] Dc [facility]ical [facility] 059 [facility] 2021-08-12 2021-08-12 Orders Doctor SAL [id number] Univers 00:00:00 00:00:00 Only Unassigned, MCKIN[place] [id number] [facility] [id number] [place] as [id number] [facility] 009 Branch 2021-08-10 2021-08-10 Outpatient [facility] [id number] [place] 00:00:00 00:00:[address] 2021-07-23 2021-07-23 Outpatient TRISTON CALLAHAN [facility] 021 [id number] [place] 00:00:00 00:00:[address] 2021-07-22 2021-07-22 Outpatient RIKA [facility] [id number] [place] 00:00:00 00:00:00 ERIC [address] 2021-07-22 2021-07-22 Outpatient [facility] [id number] [place] 00:00:00 00:00:[address] 2021-07-22 2021-07-22 Outpatient TRISTON CALLAHAN [facility] [id number] [place] 00:00:00 00:00:[address] 2021-06-17 2021-06-17 Outpatient RIKA, [facility] [id number] [place] 00:00:00 00:00:00 ERIC [address] 2021-06-03 2021-06-05 Outpatient CEHEMA, [facility] [id number] [place] 00:00:00 00:00:00 MARISA [address] 2021-05-28 2021-05-28 Outpatient OPLAKHWINDERCAMILA, [facility] 021 [id number] [place] 00:00:00 00:00:00 ANTONIO [address] 2021-05-25 2021-05-25 Outpatient OPLAKHWINDERMANN, [facility] [id number] [place] 00:00:00 00:00:00 ANTONIO [address] 2021-04-29 2021-04-29 Outpatient IHDE_G MMG [facility] [id number] [place] 03:46:00 03:46:00 0624 Medical Group 2021-04-29 2021-04-29 Outpatient IHDE_G MMG [facility] [id number] [place] 03:46:00 03:46:00 0625 Medical Group 2021-04-29 2021-04-29 Yadiel [facility] [place] - [id number] M atagor 00:00:00 00:00:00 Vic Hutchinson MD: Medical Medica [address] [facility] [address], [place] [address] , Ph. [phone] 2021-04-01 2021-04-01 Outpatient [facility] [id number] [place] 00:00:00 00:00:[address] 2021-03-15 2021-03-15 Outpatient OPLAKHWINDERMANN, [facility] 021 [id number] [place] 00:00:00 00:00:00 ANTONIO [address] 2021-03-11 2021-03-11 Outpatient OPPERMANN, [facility] [id number] [place] 00:00:00 00:00:00 ANTONIO [address] 2021-01-19 2021-01-19 Outpatient OPPERMANN, [facility] [id number] [place] 00:00:00 00:00:00 ANTONIO [address] 2021-01-03 2021-01-03 Outpatient IHDE_G MMG MMG [id number] [place] 12:42:00 12:42:00 0228 da Medical Group 2021-01-03 2021-01-03 Outpatient IHDE_G MMG MMG [id number] [place] 12:42:00 12:42:00 0623 da Medical Group 2020-12-31 2020-12-31 Outpatient IHDE_G MMG MMG [id number] [place] 12:21:00 12:21:00 0226 da Medical Group 2020-12-31 2020-12-31 Outpatient IHDE_G MMG MMG [id number] [place] 12:21:00 12:21:00 0225 da Medical Group 2020-12-31 2020-12-31 Yadiel MMG [place] - [id number] M atagor 00:00:00 00:00:00 Vic Hutchinson MD: Medical Medica l [address] [place] [address] 201, [place] [address] , Ph. [phone] 2020-12-15 2020-12-15 Outpatient IHDE_G MMG MMG [id number] [place] 05:36:00 05:36:00 0209 da Medical Group 2020-12-15 2020-12-15 Yadiel MMG [place] - [id number] M atagor 00:00:00 00:00:00 Vic Hutchinson MD: Medical Medica l [address] [facility] [address], [place] [address] , Ph. [phone] 2020-12-09 2020-12-09 [facility] 68 [place] 10:13:00 10:13:00 _ANN 1210 [facility] 2020-12-09 2020-12-09 Outpatient QASIM VALENCIA [facility] 68 [id number] [place] 10:13:00 10:13:00 _ANN 0209 [facility] 2020-12-09 2020-12-09 Outpatient QASIM VALENCIA [facility] 68 [place] 10:13:00 10:13:00 _ANN 1119 [facility] 2020-12-08 2020-12-08 Outpatient QASIM VALENCIA [facility] 68 [place] 12:33:00 12:33:00 _ANN 0202 [facility] 2020-12-08 2020-12-08 Olya VALENCIA [place] - [id number] [place] 00:00:00 00:00:00 Wiley Platt da POLLUTION CONTROL TECHNICIAN: 1700 [facility] [address], [address] [address] h , Ph. Program 2020-03-25 2020-03-25 Outpatient QASIM VALENCIA [facility] 68 [place] 04:35:00 04:35:00 _ANN 0914 [facility] 2019-09-17 2019-09-17 lOya VALENCIA [place] - [id number] [place] 00:00:00 00:00:00 Wiley Platt da POLLUTION CONTROL TECHNICIAN: 1700 [facility] [address], [address] [place] [address] Amy reyes , Ph. 2019-09-10 2019-09-10 Olya VALENCIA [place] - [id number] [place] 00:00:00 00:00:00 Wiley Platt da POLLUTION CONTROL TECHNICIAN: 1700 [facility] [address], [address] [place] [address] Amy reyes , Ph. 2016-09-27 2016-09-27 Outpatient Raju_P MMG MMG [id number] [place] 03:16:00 03:16:00 0205 da Medical Group 2016-09-27 2016-09-27 Outpatient Raju_P MMG MMG [id number] [place] 03:16:00 03:16:00 0609 da Medical Group Results Test Description Test Time Test Comments Results Result Comments Source SARS-CoV-2 (COVID-19) RNA [Presence] in Respiratory sp ecimen by 2021-07-23 01:09:07 LAKHWINDER with probe detection Test Item Value Reference Range Interpretation Comme nts SARS-CoV-2 (COVID-19) RNA [Presence] in Respiratory Not detected No t-Detected specimen by LAKHWINDER with probe detection (test code = 61027-0) Whether patient is employed in a healthcare setting (test code = 76933-0) Whether the patient has symptoms related to condition of interest (test code = 01929-8) Patient was hospitalized because of this condition (test code = 94714-0) Whether the patient was admitted to intensive care unit (ICU) for condition of interest (test code = 78061-5) Whether patient resides in a congregate care setting (test code = 68855-0) SARS-CoV-2 (COVID-19) RNA [Presence] in Respiratory specimen by LAKHWINDER with probe [id number] 13:28:28 Test Item Value Reference Range Interpretation Comments SARS-CoV-2 (COVID-19) RNA Not detected Not-Detected [Presence] in Respiratory specimen by LAKHWINDER with probe detection (test code = 87063-4) Whether patient is employed in a healthcare setting (test code = 28222-2) Whether the patient has symptoms related to condition of interest (test code = 37086-5) Patient was hospitalized because of this condition (test code = 92837-8) Whether the patient was admitted to intensive care unit (ICU) for condition of interest (test code = 46049-0) Whether patient resides in a congregate care setting (test code = 59811-8) SARS-CoV-2 (COVID-19) RNA [Presence] in Respiratory specimen by LAKHWINDER with probe [id number] 17:27:41 Test Item Value Reference Range Interpretation Comments SARS-CoV-2 (COVID-19) RNA Not detected Not-Detected [Presence] in Respiratory specimen by LAKHWINDER with probe detection (test code = 71517-5) Whether patient is employed in a healthcare setting (test code = 79579-1) Whether the patient has symptoms related to condition of interest (test code = 36080-5) Patient was hospitalized because of this condition (test code = 61151-0) Whether the patient was admitted to intensive care unit (ICU) for condition of interest (test code = 12186-1) Whether patient resides in a congregate care setting (test code = 51199-4) Free T4 and TSH panel - Serum or [id number] 00:00:00 Test Item Value Reference Range Interpretation Comments Thyrotropin [Units/volume] in 0.968 uIU/mL 0.450-4.500 Serum or Plasma by Detection limit <= 0.005 mIU/L (test code = 03902-3) Thyroxine (T4) free 1.12 NG/dL 0.82-1.77 [Mass/volume] in Serum or Plasma (test code = 3024-7) [facility] W Auto Differential panel - Blood 2019-09-11 [...] = 706-2) immature cells (test code = marketing research intern immature cells) Neutrophils [#/volume] in Blood 3.2 [...] Blood by Automated count (test code = 10745-6) Nucleated erythrocytes/100 marketing research intern leukocytes [Ratio] in Blood by Automated count (test code = 03494-3) Morphology [interpretation] in marketing research intern Blood Narrative (test code = 61411-1) [facility] - [facility] or Plasma 2019-09-11 [...] or Plasma by calculation (test code = 77107-2) Cholesterol in LDL [Mass/volume] in 86 mg/dL 0-99 Serum or Plasma by calculation (test code = 50330-8) comment: (test code = comment:) marketing research intern [facility] 1999 panel - Serum or [id number] 00:00:00 Test Item Value Reference Range Interpretation [...] Serum or Plasma (test code = 1742-6) [facility]Hemoglobin.total in [id number] 00:00:00 Test Item Value Reference Range Interpretation Comments Hemoglobin A1c/Hemoglobin.total in 8.4 % 4.8-5.6 H Blood (test code = 4548-4) Glucose mean value [Mass/volume] in 194 mg/dL Blood Estimated from glycated hemoglobin (test code = 64693-4) [facility], [id number] 00:00:00 Test Item Value Reference Range Interpretation Comments interpretation (test code = note interpretation) pdf image (test code = pdf image) . [facility] [id number] 00:00:00 Test Item Value Reference Range Interpretation Comments pdf image (test code = pdf not applicable image) [facility]SH [facility] - Serum or [id number] 00:00:00 Test Item Value Reference Range Interpretation Comments Thyrotropin [Units/volume] in 0.968 uIU/mL 0.450-4.500 Serum or Plasma by Detection limit <= 0.005 mIU/L (test code = 06556-2) Thyroxine (T4) free 1.12 NG/dL 0.82-1.77 [Mass/volume] in Serum or Plasma (test code = 3024-7) [facility] - Blood 2019-09-11 [...] = 706-2) immature cells (test code = marketing research intern immature cells) Neutrophils [#/volume] in Blood 3.2 [...] Blood by Automated count (test code = 53069-6) Nucleated erythrocytes/100 marketing research intern leukocytes [Ratio] in Blood by Automated count (test code = 83579-2) Morphology [interpretation] in marketing research intern Blood Narrative (test code = 14594-6) [facility] 1996 [facility] - Serum or Plasma 2019-09-11 [...] or Plasma by calculation (test code = 89650-8) Cholesterol in LDL [Mass/volume] in 86 mg/dL 0-99 Serum or Plasma by calculation (test code = 48210-7) comment: (test code = comment:) marketing research intern [facility] 2000 panel - Serum or [id number] 00:00:00 Test Item Value Reference Range Interpretation [...] Serum or Plasma (test code = 1742-6) [facility] A1c/Hemoglobin.total in [id number] 00:00:00 Test Item Value Reference Range Interpretation Comments Hemoglobin A1c/Hemoglobin.total in 8.4 % 4.8-5.6 H Blood (test code = 4548-4) Glucose mean value [Mass/volume] in 194 mg/dL Blood Estimated from glycated hemoglobin (test code = 50931-0) [facility], [id number] 00:00:00 Test Item Value Reference Range Interpretation Comments interpretation (test code = note interpretation) pdf image (test code = pdf image) . [facility] [id number] 00:00:00 Test Item Value Reference Range Interpretation Comments pdf image (test code = pdf not applicable image) [facility]
[2021-12-25 11:44] LABS: Absolute Lymphocytes (CBC) 1.3 K/uL (0.7-4.9); Lymphocytes % 26.6 % (15.3-44.8); MPV 8.2 fL (7.6-11.3); RBC Red Blood Cell Count 2.79 M/uL (3.86-4.86)
--- NOTE | 2021-12-25 11:58 | RAD REPORT ---
EXAM DESCRIPTION: RAD - Chest Single View - 12/25/2021 11:40 am CLINICAL HISTORY: DYSPNEA COMPARISON: Portable chest 11/18/2021 TECHNIQUE: AP portable chest image was obtained 12/25/2021 11:40 am . FINDINGS: No new mass or consolidation. Prominent interstitial pattern present similar to comparison . Enlarged cardiac silhouette is stable. Central vasculature prominent but not clearly different. Per ibronchial thickening seen. No measurable pleural effusion and no pneumothorax. No acute bony abnorma lity seen. No acute aortic findings suspected. IMPRESSION: Cardiomegaly, vascular engorgement and prominent interstitial pattern is present. Findings are less pronounced than seen November 18 but could indicate a mild failure or volume overloa d. Patient may have baseline prominent cardiac findings and an acute viral infiltrate cannot be exclu ded.
[2021-12-25 12:10] LABS: Potassium 4.1 mmol/L (3.5-5.1)
--- NOTE | 2021-12-25 12:51 | EDPHYS ---
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 12:46 The patient presents with dizziness, feeling faint, generalized weakness, rn lightheadedness. Onset: The symptoms/episode began/occurred 1 week(s) ago. Context: occurred at an unknown location, occurred while the patient was at rest. Modifying factors: The symptoms are alleviated by lying down, the symptoms are aggravated by movement of head, standing up, changing position. Associated signs and symptoms: Pertinent positives: shortness of breath, Pertinent negatives: abdominal pain, chest pain, seizure, syncope. Severity of symptoms: At their worst the symptoms were moderate in the emergency department the symptoms are unchanged. The patient has experienced similar episodes in the past. The patient has been recently seen by a physician:. Sent here by dialysis staff for anemia and blood transfusion. Reports 1-2 weeks of dyspnea with exertion, generalized weakness, lightheaded. NO fever. Does not feel ill. Reports last blood transfusion 6 months ago. Dialysis MWF with Dr. Arora. Dialysis yesterday did not improve dyspnea. Denies active bleeding or dark stool.. Historical: - Allergies: 11:03 No Known Allergies; ab2 - PMHx: 11:03 Dialysis; Glaucoma; Hypertensive disorder; ab2 - Immunization history:: Adult Immunizations up to date, Client reports receiving the 2nd dose of the Covid vaccine, Flu vaccine is up to date. - Social history:: Smoking status: Patient denies any tobacco usage or history of. - Family history:: not pertinent. - Hospitalizations: : No recent hospitalization is reported. ROS: 12:46 Constitutional: Negative for fever, chills, and weight loss, Eyes: Negative for injury, rn pain, redness, and discharge, Neck: Negative for injury, pain, and swelling, Cardiovascular: Negative for chest pain, palpitations, and edema, Respiratory: + sob Abdomen/GI: Negative for abdominal pain, nausea, vomiting, diarrhea, and constipation, Back: Negative for injury and pain, MS/Extremity: Negative for injury and deformity, Skin: Negative for injury, rash, and discoloration, Neuro: + gen weakness Exam: 12:46 Constitutional: This is a well developed, well nourished patient who is awake, alert, rn mild tachypnea Head/Face: Normocephalic, atraumatic. Cardiovascular: Regular rate and rhythm. No pulse deficits. Respiratory: Mild tachypnea, no retractions. Abdomen/GI: soft, non-tender Skin: Warm, dry MS/ Extremity: Pulses equal, no cyanosis. Neuro: Awake and alert, GCS 15 Vital Signs: 11:00 BP 113 / 50; Pulse 66; Resp 18; Temp 99.1(TE); Pulse Ox 97% on R/A; Weight 88 kg; ab2 Height 5 ft. 3 in. (160.02 cm); Pain 5/10; 11:30 BP 130 / 64; Pulse 65; Resp 16 S; Pulse Ox 99% on R/A; jg9 12:00 BP 132 / 60; Pulse 66; Resp 17 S; Pulse Ox 99% on R/A; jg9 12:30 BP 125 / 61; Pulse 66; Resp 17 S; Pulse Ox 98% on R/A; jg9 13:00 BP 117 / 53; Pulse 66; Resp 17 S; Pulse Ox 98% on R/A; jg9 13:45 BP 143 / 73; Pulse 71; Resp 17 S; Pulse Ox 93% on R/A; jg9 14:00 BP 129 / 59; Pulse 67; Resp 17 S; Pulse Ox 95% on R/A; jg9 14:45 BP 135 / 63; Pulse 67; Resp 16 S; Pulse Ox 94% on R/A; jg9 11:00 Body Mass Index 34.37 (88.00 kg, 160.02 cm) ab2 MDM: 11:06 Patient medically screened. rn 12:46 Differential diagnosis: generalized weakness, hypovolemia, idiopathic dizziness, rn anemia. Data reviewed: vital signs, nurses notes, lab test result(s), EKG, radiologic studies, plain films, and as a result, I will admit patient. Counseling: I had a detailed discussion with the patient and/or guardian regarding: the historical points, exam findings, and any diagnostic results supporting the discharge/admit diagnosis, lab results, radiology results, the need for further work-up and treatment in the hospital. Admission orders: after a detailed discussion of the patient's condition and case, the admit orders are written by me. ED course: Consulted with Dr. Arora, patient will be admitted for transfusion and dialysis since next dialysis not until Monday and concern for volume overload. . 12/25 11:15 Order name: CBC with Diff rn 12/25 11:15 Order name: Basic Metabolic Panel rn 12/25 11:15 Order name: Type And Screen rn 12/25 11:16 Order name: CBC with Automated Diff; Complete Time: 12:00 [facility] 12/25 12:51 Order name: SARS-COV-2 RT PCR (Document "Date of Onset" if Symptomatic) 12/25 11:15 Order name: IV Start; Complete Time: 11:36 12/25 11:15 Order name: EKG; Complete Time: 11:16 12/25 11:15 Order name: EKG - Nurse/Tech; Complete Time: 11:17 12/25 11:15 Order name: XRAY Chest (1 view); Complete Time: 12:00 rn 12/25 11:21 Order name: Cardiac monitoring; Complete Time: 11:22 12/25 11:22 Order name: O2 Sat Monitoring; Complete Time: 11:22 [facility] 12/25 13:24 Order name: Packed RBC Leukored EDNC 12/25 13:58 Order name: CONS Physician Consult [facility] Administered Medications: No medications were administered Disposition Summary: 12/25/21 12:51 Hospitalization Ordered Hospitalization Status: Observation rn Provider: Tino Lomeli rn Location: Telemetry/MedSurg (observation) rn Condition: Stable rn Problem: an ongoing problem rn Symptoms: have improved rn Bed/Room Type: Standard rn Room Assignment: 208(12/25/21 14:23) eb Diagnosis - Anemia, unspecified rn - Dyspnea, unspecified rn - End stage renal disease rn Forms: - Medication Reconciliation Form rn - SBAR form rn Signatures: Dispatcher [employer] EDMS José Lomeli MD MD rn Leal, Jahala, RN RN jl7 Stafford, Dina eb Bleininger, Loyd ab2 Corrections: (The following items were deleted from the chart) 13:53 13:21 BB Add On+BB.LAB.HELDERZ ordered. EDMS EDMS 14: 12:51 rn eb
--- NOTE | 2021-12-25 12:51 | ER ---
Nurse's Notes [facility] Name: Tulio Smith Age: 61 yrs Sex: Female : 1960 Arrival Date: 12/25/2021 Time: 10:47 Bed 6 Private MD: Diagnosis: Anemia, unspecified;Dyspnea, unspecified;End stage renal disease Presentation: 12/25 11:00 Chief complaint: Patient states: "I had blood work done at dialysis and they said my ab2 blood count was low so come here." Pt c/o weakness, SOB and dizziness. Pt gets dialysis MWF. Coronavirus screen: Vaccine status: Patient reports receiving the 2nd dose of the covid vaccine. Client denies travel out of the [place] in the last 14 days. fatigue, shortness of breath, Client presents with at least one sign or symptom that may indicate coronavirus-19. Standard/surgical mask placed on the client. Provider contacted for isolation considerations. Ebola Screen: Patient negative for fever greater than or equal to 101.5 degrees Fahrenheit, and additional compatible Ebola Virus Disease symptoms Patient denies exposure to infectious person. Patient denies travel to an Ebola-affected area in the 21 days before illness onset. No symptoms or risks identified at this time. Initial Sepsis Screen: Does the patient meet any 2 criteria? No. Patient's initial sepsis screen is negative. Does the patient have a suspected source of infection? No. Patient's initial sepsis screen is negative. Risk Assessment: Do you want to hurt yourself or someone else? Patient reports no desire to harm self or others. Onset of symptoms is unknown. 11:00 Method Of Arrival: Wheelchair ab2 11:00 Acuity: CLARICE 3 ab2 Triage Assessment: 11:03 General: Appears in no apparent distress. comfortable, Behavior is calm, cooperative, ab2 appropriate for age. Pain: Complains of pain in back Pain currently is 5 out of 10 on a pain scale. Neuro: Level of Consciousness is awake, alert, obeys commands, Oriented to person, place, time, situation, Appropriate for age Speech is normal, Facial symmetry appears normal, Reports dizziness, weakness. Historical: - Allergies: 11: No Known Allergies; ab2 - PMHx: 11: Dialysis; Glaucoma; Hypertensive disorder; ab2 - Immunization history:: Adult Immunizations up to date, Client reports receiving the 2nd dose of the Covid vaccine, Flu vaccine is up to date. - Social history:: Smoking status: Patient denies any tobacco usage or history of. - Family history:: not pertinent. - Hospitalizations: : No recent hospitalization is reported. Screenin:39 Abuse screen: Denies threats or abuse. Denies injuries from another. Abuse screen: jg9 Denies threats or abuse. Denies injuries from another. Nutritional screening: No deficits noted. Tuberculosis screening: No symptoms or risk factors identified. Fall Risk None identified. Assessment: 11:39 General: Appears in no apparent distress. Behavior is calm, cooperative. Pain: Denies jg9 pain. Neuro: Reports weakness 3 weeks. Respiratory: Reports shortness of breath since 3 weeks. 14:35 Reassessment: attempted to call floor report, advised the RN will call me back. jg9 Vital Signs: 11:00 BP 113 / 50; Pulse 66; Resp 18; Temp 99.1(TE); Pulse Ox 97% on R/A; Weight 88 kg; ab2 Height 5 ft. 3 in. (160.02 cm); Pain 5/10; 11:30 BP 130 / 64; Pulse 65; Resp 16 S; Pulse Ox 99% on R/A; jg9 12:00 BP 132 / 60; Pulse 66; Resp 17 S; Pulse Ox 99% on R/A; jg9 12:30 BP 125 / 61; Pulse 66; Resp 17 S; Pulse Ox 98% on R/A; jg9 13:00 BP 117 / 53; Pulse 66; Resp 17 S; Pulse Ox 98% on R/A; jg9 13:45 BP 143 / 73; Pulse 71; Resp 17 S; Pulse Ox 93% on R/A; jg9 14:00 BP 129 / 59; Pulse 67; Resp 17 S; Pulse Ox 95% on R/A; jg9 14:45 BP 135 / 63; Pulse 67; Resp 16 S; Pulse Ox 94% on R/A; jg9 11:00 Body Mass Index 34.37 (88.00 kg, 160.02 cm) ab2 ED Course: 10:47 Patient arrived in ED. mr 11:03 Triage completed. ab2 11:03 Arm band placed on right wrist. ab2 11:06 Salome Torres, RN is Primary Nurse. jg9 11:06 José Lomeli MD is Attending Physician. rn 11:35 Inserted saline lock: 22 gauge in right antecubital area, using aseptic technique. jg9 Blood collected. 11:38 CBC with Diff Sent. jg9 11:39 XRAY Chest (1 view) In Process Unspecified. EDMS 11:41 Patient has correct armband on for positive identification. Bed in low position. Call jg9 light in reach. Side rails up X 1. 12:[address] Arora with Dr. Lomeli for patient consultation. eb 12:12 Notified ED physician of a critical lab result(s). Creatinine 7.10. jl7 12:51 Tino Lomeli MD is Hospitalizing Provider. rn 13:09 No apparent distress. Resting quietly. Pt visited by significant other. jg9 15:44 No provider procedures requiring assistance completed. jg9 15:44 Patient admitted, IV remains in place. jg9 Administered Medications: No medications were administered Outcome: 12:51 Decision to Hospitalize by Provider. rn 15:40 Admitted to Med/surg accompanied by tech, via wheelchair, room 208, Report called to jg9 Janis RN 15:44 Condition: stable jg9 15:45 Patient left the ED. jg9 Signatures: Dispatcher [employer] EDAZ CarlOlya mr José Lomeli MD MD rn Leal, Jahala, RN RN jl7 Dina Stafford Jennifer, RN RN jg9 Loyd Garzon
--- NOTE | 2021-12-25 14:02 | P.HP ---
Certification for Inpatient Patient admitted to: Observation With expected LOS: <2 Midnights Practitioner: I am a practitioner with admitting privileges, knowledge of patient current condition, hospital course, and medical plan of care. Services: Services provided to patient in accordance with Admission requirements found in Title 42 Section 412.3 of the Code of Federal Regulations Patient History Date of Service: 12/25/21 Reason for admission: Dyspnea, anemia History of Present Illness: 61yo F, PMH: ESRD on HD, IDDM 2 (insulin-dependent), HTN, HLD, anemia of chronic disease Presents to the ED due to progressive weakness, shortness of breath/dyspnea over the last several weeks. States she gets very dyspneic and cannot catch her breath after walking a few feet now. She denies any lower extremity swelling. She states she was told that this was likely due to fluid balance, however did not improve despite more dialysis/fluid removal. Her blood pressure was done to get low and they could not pull more fluid. Her most recent blood check yesterday, at the dialysis center, she was found to have low hemoglobin. She was told to present to the ER. In the ER, MRI was noted to be 7.4, chest x-ray with some mild pulmonary edema- like picture. Patient is admitted to get blood transfusion and dialysis. Further evaluation of her dyspnea. Allergies heparin Allergy (Verified 07/28/21 14:27) Hives Home Medications: Nifedipine [Adalat cc] 90 mg PO DAILY 02/11/16 Estrogens,Conj [Premarin*] 0.9 mg PO DAILY 09/11/16 Isosorbide Mononitrate [Isosorbide Mononitrate ER] 30 mg PO DAILY 09/11/16 Rosuvastatin [Crestor*] 20 mg PO DAILY 09/11/16 Sevelamer Carbonate [Renvela*] 4 tab PO TIDWM 09/11/16 carvediloL [Coreg*] 50 mg PO BID #60 tab 09/13/16 ramipriL [Altace*] 5 mg PO Q12HR #60 cap 09/13/16 Insulin Glargine,Hum.rec.anlog [Corie Novak] 40 units SQ DAILY 12/26/17 Calcitrol [Rocaltrol*] 0.5 mcg PO DAILY #30 cap 11/19/21 Cholecalciferol (Vitamin D3) [Vitamin D 5,000 IU Cap*] 5,000 unit PO DAILY #30 cap 11/19/21 Nepro Shake [Nepro*] 237 ml PO TID #30 can 11/19/21 - Past Medical/Surgical History Diabetic: Yes -: ESRD, hypertension, Diabetes-IDDM -: high cholesterol, -: Anemia chronic disease -: bilateral eye surgery, hysterectomy -: tubal ligation, C- Section, left arm fistula - Family History mom -: Hypertension dad -: Diabetes - Social History Smoking Status: Never smoker Alcohol use: No CD- Drugs: No Caffeine use: No Place of Residence: Home Review of Systems 10-point ROS is otherwise unremarkable Physical Examination - Physical Exam General: Alert, Oriented x3, Other (appears fatigued) HEENT: Sclerae nonicteric Respiratory: Diminished (At bases bilaterally) Cardiovascular: No edema, Regular rate/rhythm Gastrointestinal: Soft and benign, Non-distended, No tenderness Musculoskeletal: No erythema, No tenderness Integumentary: No rashes, No significant lesion Neurological: Normal speech, Normal affect - Studies Laboratory Data (last 24 hrs) 12/25/21 11:20: Sodium 139, Potassium 4.1, BUN 42 H, Creatinine 7.10 H*, Glucose 108 H 12/25/21 11:20: WBC 4.90, Hgb 7.4 L, Hct 23.0 L, Plt Count 201 Assessment and Plan - Advance Directives Does patient have a Living Will: No Does patient have a Durable POA for Healthcare: No Physician Review Additional Text: Problem list Generalized weakness, dyspnea, secondary to anemia Acute on chronic anemia, of chronic disease ESRD on HD (MWF) DM2, insulin-dependent HTN HLD Patient with progressively worsening generalized weakness and shortness of breath over the last 2-3 weeks. Reports her hemoglobin has been slowly downtrending from 10 -> 8 -> 7.4 today Nephrology consulted in ED, plan for 1 unit blood transfusion for symptomatic anemia, with dialysis CXR with no significant pulmonary edema Denies palpitations, denies chest pain, denies cough, no fever Does not appear significantly overloaded Plan to transfuse 1 unit of blood with dialysis today If symptoms improve, possible discharge in the next day Code: full Dispo: home, possibly tomorrow Time Spent Managing Pts Care (In Minutes): 60
[2021-12-25] MEDS ORDERED: EPOETIN ALFA-EPBX 10,000 UNIT/ML VIAL SQ ONE (14:40)
[2021-12-25 16:13] VITALS: BMI 34.7
[2021-12-25] MEDS: INSULIN -REGULAR HUMAN 50 UNIT/0.5 ML ML SQ SCH ×2 (17:04→21:00)
[2021-12-25] MEDS ORDERED: MANNITOL 25% 12.5 GM/50 ML VIAL IV PRN (17:04)
[2021-12-25] MEDS ORDERED: NA CHLORIDE 0.9% 1,000 ML IV PRN (17:04)
[2021-12-25] MEDS ORDERED: ONDANSETRON 4 MG/2 ML VIAL IV PRN (17:04)
[2021-12-25] MEDS ORDERED: ALBUMIN HUMAN 25% 50 ML IV SCH (17:04)
--- NOTE | 2021-12-25 20:06 | P.CNS ---
Date of Consult: 12/25/21 Reason for Consult: ESRD Requesting Physician: Tino Lomeli Chief Complaint: Dyspnea, anemia History of Present Illness: 61yo F, PMH: ESRD on HD, IDDM 2 (insulin-dependent), HTN, HLD, anemia of chronic disease Presents to the ED due to progressive weakness, shortness of breath/dyspnea over the last several weeks. States she gets very dyspneic and cannot catch her breath after walking a few feet now. She denies any lower extremity swelling. She states she was told that this was likely due to fluid balance, however did not improve despite more dialysis/fluid removal. Her blood pressure was done to get low and they could not pull more fluid. Her most recent blood check yesterday, at the dialysis center, she was found to have low hemoglobin. She was told to present to the ER. In the ER, MRI was noted to be 7.4, chest x-ray with some mild pulmonary edema- like picture. Patient is admitted to get blood transfusion and dialysis. Further evaluation of her dyspnea. 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 12:46 The patient presents with dizziness, feeling faint, generalized weakness, rn lightheadedness. Onset: The symptoms/episode began/occurred 1 week(s) ago. Context: occurred at an unknown location, occurred while the patient was at rest. Modifying factors: The symptoms are alleviated by lying down, the symptoms are aggravated by movement of head, standing up, changing position. Associated signs and symptoms: Pertinent positives: shortness of breath, Pertinent negatives: abdominal pain, chest pain, seizure, syncope. Severity of symptoms: At their worst the symptoms were moderate in the emergency department the symptoms are unchanged. The patient has experienced similar episodes in the past. The patient has been recently seen by a physician:. Sent here by dialysis staff for anemia and blood transfusion. Reports 1-2 weeks of dyspnea with exertion, generalized weakness, lightheaded. NO fever. Does not feel ill. Reports last blood transfusion 6 months ago. Dialysis MWF with Dr. Arora. Dialysis yesterday did not improve dyspnea. Denies active bleeding or dark stool.. Allergies heparin Allergy (Verified 07/28/21 14:27) Hives Home medications list reviewed: Yes Home Medications: Nifedipine [Adalat cc] 90 mg PO DAILY 02/11/16 Estrogens,Conj [Premarin*] 0.9 mg PO DAILY 09/11/16 Isosorbide Mononitrate [Isosorbide Mononitrate ER] 30 mg PO DAILY 09/11/16 Rosuvastatin [Crestor*] 20 mg PO DAILY 09/11/16 Sevelamer Carbonate [Renvela*] 4 tab PO TIDWM 09/11/16 carvediloL [Coreg*] 50 mg PO BID #60 tab 09/13/16 ramipriL [Altace*] 5 mg PO Q12HR #60 cap 09/13/16 Insulin Glargine,Hum.rec.anlog [Toujeo Solostar] 40 units SQ DAILY 12/26/17 Calcitrol [Rocaltrol*] 0.5 mcg PO DAILY #30 cap 11/19/21 Cholecalciferol (Vitamin D3) [Vitamin D 5,000 IU Cap*] 5,000 unit PO DAILY #30 cap 11/19/21 Nepro Shake [Nepro*] 237 ml PO TID #30 can 11/19/21 - Past Medical/Surgical History Diabetic: Yes -: ESRD, hypertension, Diabetes-IDDM -: high cholesterol, -: Anemia chronic disease -: bilateral eye surgery, hysterectomy -: tubal ligation, C- Section, left arm fistula - Family History mom Medical History: Hypertension dad Medical History: Diabetes - Social History Alcohol use: No CD- Drugs: No Caffeine use: No Place of Residence: Home Review of Systems 10-point ROS is otherwise unremarkable Respiratory: SOB with Excertion Neurological: Weakness Physical Examination Temp Pulse Resp BP Pulse Ox 97.1 F 76 20 149/70 H 99 12/25/21 16:00 12/25/21 16:00 12/25/21 16:00 12/25/21 16:00 12/25/21 16:00 General: Oriented x3, Cooperative, Mild distress HEENT: Atraumatic Neck: Supple Respiratory: Diminished Cardiovascular: Regular rate/rhythm, Edema Gastrointestinal: Soft and benign, Non-distended Musculoskeletal: No clubbing, No contractures Integumentary: No rashes, No cyanosis Neurological: Normal speech Laboratory Data (last 24 hrs) 12/25/21 11:20: Sodium 139, Potassium 4.1, BUN 42 H, Creatinine 7.10 H*, Glucose 108 H 12/25/21 11:20: WBC 4.90, Hgb 7.4 L, Hct 23.0 L, Plt Count 201 Imagings Data: EXAM DESCRIPTION: RAD - Chest Single View - 12/25/2021 11:40 am CLINICAL HISTORY: DYSPNEA COMPARISON: Portable chest 11/18/2021 TECHNIQUE: AP portable chest image was obtained 12/25/2021 11:40 am . FINDINGS: No new mass or consolidation. Prominent interstitial pattern present similar to comparison. Enlarged cardiac silhouette is stable. Central vascu lature prominent but not clearly different. Peribronchial thickening seen. No measurable pleural effusion and no pneumothorax. No acute bony abnormality seen. No acute aortic findings suspected. IMPRESSION: Cardiomegaly, vascular engorgement and prominent interstitial pattern is present. Findings are less pronounced than seen November 18 but could indicate a mild failure or volume overload. Patient may have baseline prominent cardiac findings and an acute viral infiltrate cannot be excluded. Conclusions/Impression: ESRD -HD TIW HTN with CKD/ CHF -Restart ramipril Diastolic CHF, A/C -Low sodium diet -HD with UF -Restart Coreg DM II with CKD -RISS Moderate malnutrition -Renal diet -Start Nepro Anemia in CKD -Retacrit X1 CKD MBD -Start Renvela Thank you kindly for the consultation Case discussed with Dr. Lomeli
[2021-12-25] MEDS: DOCUSATE NA 100 MG CAP PO SCH (21:15)
[2021-12-25] MEDS: NEPRO SHAKE 237 ML CAN PO SCH (21:16)
--- NOTE | 2021-12-26 06:05 | P.PN ---
Date of Service: 12/26/21
[2021-12-26 06:33] VITALS: BP 143/67; TEMP 98
[2021-12-26 06:44] LABS: Absolute Lymphocytes (CBC) 1.2 K/uL (0.7-4.9); MPV 8.2 fL (7.6-11.3); RBC Red Blood Cell Count 3.16 M/uL (3.86-4.86)
[2021-12-26 07:12] LABS: Albumin 2.7 g/dL (3.4-5.0); Bilirubin Total 0.4 mg/dL (0.2-1.0); Magnesium 2.2 mg/dL (1.8-2.4); Protein, Total 7.3 g/dL (6.4-8.2)
[2021-12-26] MEDS: INSULIN -REGULAR HUMAN 50 UNIT/0.5 ML ML SQ SCH (07:30)
[2021-12-26] MEDS ORDERED: SEVELAMER CARBONATE 800 MG TABLET PO SCH (08:00)
[2021-12-26] MEDS: DOCUSATE NA 100 MG CAP PO SCH (08:04)
[2021-12-26] MEDS: NEPRO SHAKE 237 ML CAN PO SCH (08:05)
[2021-12-26 08:54] VITALS: O2SAT 97
[2021-12-26] MEDS ORDERED: VITAMIN D 5,000 UNIT CAP PO SCH (09:00)
[2021-12-26] MEDS ORDERED: CALCITROL 0.25 MCG CAP PO SCH (09:00)
--- NOTE | 2021-12-26 10:36 | P.DS ---
Admission Date: 12/25/21 Discharge Date: 12/26/21 Disposition: ROUTINE DISCHARGE Discharge Condition: GOOD Reason for Admission: Dyspnea, anemia Consultations: Nephrology - Dr. Arora Brief History of Present Illness: 61yo F, PMH: ESRD on HD, IDDM 2 (insulin-dependent), HTN, HLD, anemia of chronic disease Presents to the ED due to progressive weakness, shortness of breath/dyspnea over the last several weeks. States she gets very dyspneic and cannot catch her breath after walking a few feet now. She denies any lower extremity swelling. She states she was told that this was likely due to fluid balance, however did not improve despite more dialysis/fluid removal. Her blood pressure was done to get low and they could not pull more fluid. Her most recent blood check yesterday, at the dialysis center, she was found to have low hemoglobin. She was told to present to the ER. In the ER, MRI was noted to be 7.4, chest x-ray with some mild pulmonary edema- like picture. Patient is admitted to get blood transfusion and dialysis. Further evaluation of her dyspnea. Hospital Course: Problem list Generalized weakness, dyspnea, secondary to anemia and pulmonary edema Acute on chronic anemia, of chronic disease ESRD on HD (MWF) DM2, insulin-dependent HTN HLD Patient was found to have mild pulmonary edema and anemia. She underwent dialysis and transfusion of 1 unit of PRBCs. She reported much improvement in her symptoms and ready for discharge home. Patient's hemoglobin responded appropriately and vital signs were stable. She was deemed stable for discharge. Follow up with PCP within 1 week, call office to schedule appointment. Follow up with Nephrology, call office to schedule appointment. continue dialysis as scheduled. Vital Signs/Physical Exam: Temp Pulse Resp BP Pulse Ox 98 F 69 18 143/67 H 100 12/26/21 04:00 12/26/21 04:00 12/26/21 04:00 12/26/21 04:00 12/26/21 04:00 General: Alert, In no apparent distress, Oriented x3 HEENT: Sclerae nonicteric Respiratory: Clear to auscultation bilaterally, Normal air movement Cardiovascular: No edema, Regular rate/rhythm Gastrointestinal: Soft and benign, Non-distended, No tenderness Musculoskeletal: No erythema, No tenderness Integumentary: No significant lesion Neurological: Normal speech, Normal strength at 5/5 x4 extr, Normal affect, Other (Ambulated safely within the room) Laboratory Data at Discharge: WBC 5.30 K/uL (4.3-10.9) 12/26/21 06:18 Hgb 8.5 g/dL (12.0-15.0) L 12/26/21 06:18 Hct 26.0 % (36.0-45.0) L 12/26/21 06:18 Plt Count 186 K/uL (152-406) 12/26/21 06:18 Sodium 139 mmol/L (136-145) 12/26/21 06:18 Potassium 4.0 mmol/L (3.5-5.1) 12/26/21 06:18 BUN 33 mg/dL (7-18) H 12/26/21 06:18 Creatinine 5.56 mg/dL (0.55-1.3) H* D 12/26/21 06:18 Glucose 124 mg/dL (74-106) H 12/26/21 06:18 Magnesium 2.2 mg/dL (1.8-2.4) 12/26/21 06:18 Total Bilirubin 0.4 mg/dL (0.2-1.0) 12/26/21 06:18 AST 12 U/L (15-37) L 12/26/21 06:18 ALT 26 U/L (12-78) 12/26/21 06:18 Alkaline Phosphatase 114 U/L (45-117) 12/26/21 06:18 Home Medications: Nifedipine [Adalat cc] 90 mg PO DAILY 02/11/16 Estrogens,Conj [Premarin*] 0.9 mg PO DAILY 09/11/16 Isosorbide Mononitrate [Isosorbide Mononitrate ER] 30 mg PO DAILY 09/11/16 Rosuvastatin [Crestor*] 20 mg PO DAILY 09/11/16 Sevelamer Carbonate [Renvela*] 4 tab PO TIDWM 09/11/16 carvediloL [Coreg*] 50 mg PO BID #60 tab 09/13/16 ramipriL [Altace*] 5 mg PO Q12HR #60 cap 09/13/16 Insulin Glargine,Hum.rec.anlog [Touriccardo Solostar] 40 units SQ DAILY 12/26/17 Calcitrol [Rocaltrol*] 0.5 mcg PO DAILY #30 cap 11/19/21 Cholecalciferol (Vitamin D3) [Vitamin D 5,000 IU Cap*] 5,000 unit PO DAILY #30 cap 11/19/21 Nepro Shake [Nepro*] 237 ml PO TID #30 can 11/19/21 Physician Discharge Instructions: Patient was found to have mild pulmonary edema and anemia. She underwent dialysis and transfusion of 1 unit of PRBCs. She reported much improvement in her symptoms and ready for discharge home. Patient's hemoglobin responded appropriately and vital signs were stable. She was deemed stable for discharge. Follow up with PCP within 1 week, call office to schedule appointment. Follow up with Nephrology, call office to schedule appointment. continue dialysis as scheduled. Followup: OOT,OOT [Primary Care Provider] - 1 Week (Call office to schedule appointment. ) Time spent managing pt's care (in minutes): 45
== END 2021-12-26 09:44 | disposition home or self-care (01) ==
LOC: ER 10:44 → ERHOLD 13:57 → 2ND 15:46
PROVIDERS: ADMIT Hospitalist; ATTEND Hospitalist
DX: D64.9 Anemia, unspecified (principal); I12.0 Hypertensive chronic kidney disease with stage 5 chronic kidney disease or end stage renal disease; E11.22 Type 2 diabetes mellitus with diabetic chronic kidney disease; N18.6 End stage renal disease; Z99.2 Dependence on renal dialysis; E78.5 Hyperlipidemia, unspecified; Z20.822 Contact with and (suspected) exposure to COVID-19; J81.1 Chronic pulmonary edema; E44.0 Moderate protein-calorie malnutrition; Z68.34 Body mass index [BMI] 34.0-34.9, adult
CPT/HCPCS: 36415; 71045; 80048; 80053; 82947; 83735; 85025; 86850; 86900; 86901; 90935; 93005; 94760; 99285; G0378; P9016; Q5106; U0003

== ENCOUNTER 2022-01-10 05:38 | Observation (INO) | payer OTHER ==
--- OUTSIDE RECORDS SUMMARY | 2022-01-10 05:41 | XMS REPORT | Continuity of Care Document ---
:1960 Author Organization [facility] t Address [address] [place] [address] Care Team Providers Name Role Phone Pcp, [...] Unavailable ASHLEIGH_Zhao Attending Clinician Unavailable MD JOANA ELurdes Attending Clinician Unavailable Nick_Vicente Attending Clinician Unavailable SALENA Admitting Clinician Unavailable ANDRY Admitting Clinician Unavailable LONDON Admitting Clinician Unavailable MD LONDON Admitting Clinician Unavailable DENI Admitting Clinician Unavailable MD GITA Admitting Clinician Unavailable JOANA Admitting Clinician Unavailable ASHLEIGH_G Admitting Clinician Unavailable ELIZABETH ARRIAZA Admitting Clinician Unavailable Rajshilpi_P Admitting Clinician Unavailable Payers Payer Name Policy Type Policy Number Effective Date Expiration Date S vignesh [facility] - MEDICARE [id number] COMPLETE (MEDICARE REPLACEMENT HMO) SANDRA/MAYTE [id number] 2021 MEDICARE ADVANTAGE 00:00:00 MEDIC[place] A-[place]: [id number] [employer] - 00:00:00 RHC - FQHC [place]IC[place] B-[place]: [id number] 2007 [employer] 00:00:00 Problems Condition Condition Condition Status Onset Resolution Last Treating Co mments Source Name Details Category Date Date Treatment Clinician Date Body mass Body Mass Problem Active [facility] [place] index 30+ Index 30+ 2-02 da - obesity - Obesity 00:00: Epis spectroscopist 00 al Health Outreac h Program Umbilical Umbilical Problem Active [facility] [place] hernia Hernia 2-02 da 00:00: [facility] 00 al [facility] Outre[facility] 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: [place] with ESRD with ESRD 00 [facility] jalil (end-stage (end-stage Br anch renal renal disease) disease) Dyslipidem Dyslipidem Disease Active U nivers ia ia 11-14 ity of 00:00: [place] 00 Medical Branch Essential Essential Disease Active Uni vers hypertensi hypertensi 11-14 it y of on on 00:00: [place] 00 Medical Branch Hyperlipid Hyperlipid Problem Active 2015-11 M [facility] emia emia 11-14 da 00:00: [facility] 00 nc [facility] Outre[facility] h Program Dependence Dependence Problem Active 2015-11 M [place] on on 11-14 da hemodialys Hemodialys 00:00: Ep iscop is due to is Due to 00 al end stage End Stage Heal th renal Renal Outreac disease Disease h Program History of History of Problem Active M [facility] adenomatou Adenomatou 5-10 da s polyp of s Polyp of 00:00: Ep iscop colon Colon 00 al Health Outreac h Program Renal [...] Active [place] loss [facility] Hypertensi Hypertensi Problem Active M [place] ve renal ve Renal da failure Failure [facility] Chronic Chronic Problem Active [place] kidney Kidney da disease Disease [facility] Heart Heart Problem Active [place] murmur Murmur da [facility] Hemodialys Hemodialys Problem Active M sadiq is is da [facility] Multiple Multiple Problem Active [place] complicati Complicati da ons due to ons Due to Ep iscop type 2 Type 2 al diabetes Diabetes Health mellitus Mellitus Outrea c h Program Diabetes Diabetes Problem Active [place] mellitus Mellitus da [facility] End stage End Stage Problem Active [place] renal Renal da failure on Failure on Ep iscop dialysis Dialysis nc Health Outreac h Program End-stage End-stage Problem Active [place] renal Renal da disease Disease [facility] Allergies, Adverse Reactions, [...] s Branch Heparin Allergy Active [place] to 4-07 da substanc 00:00: Episc[facility] e 00 [facility] Outreac h Program Social History Social Habit Start Date Stop Date Quantity Comments Source Exposure to Not sure [facility] SARS-CoV-2 (event) Medica l Branch Tobacco use and 2017-11-14 2017-11-14 Never used [facility] exposure 00:00:00 00:00:00 Medical Branch Sex Ass[birth year] [facility] 00:00:00 00:00:00 Medical Branch Smoking Status Start Date Stop Date Source Never Smoker [place] [facility] Health Outreach Program Medications Ordered Filled Start Stop Current Ordering Indication Dosage Frequency Signature Comments Components Source Medication Medication Date Date Medication? Clinician (SIG) Name Name CORIE Yes [id number] INJECT Unive rs SOLOSTAR 6 40-50 ity of U-300 00:00: UNITS [place] INSULIN 300 00 UNDER THE Med ical unit/mL SKIN Branch (1.5 mL) DAILY. InPn TOJEO Yes [id number] INJECT Unive rs SOLOSTAR 6 40-50 ity of U-300 00:00: UNITS [place] INSULIN 300 00 UNDER THE Med ical unit/mL SKIN Branch (1.5 mL) DAILY. InPn TOJEO Yes [id number] INJECT Unive rs SOLOSTAR 6 40-50 ity [...] mouth ity of hr tablet 14:35: daily. [place] 39 Medical Branch travoprost Yes 1[drp] Place [...] mouth ity of hr tablet 14:35: daily. [place] 39 Medical Branch travoprost Yes 1[drp] Place [...] Medical D3) 5,000 Branch unit tablet carvedilol 0 Yes 50mg Take 50 mg U nivers 25 mg 1-09 by mouth 2 ity of tablet 14:35: (two) [place] 39 times Medical daily with Branch meals. NIFEdipine 2018-0 Yes 90mg Take 90 mg U nivers XL 90 mg 24 1-09 by mouth ity of hr tablet 14:35: daily. [place] [address] Medical Branch travoprost Yes 1[drp] Place 1 Un payal (TRAVATAN - Drop in ity of Z) 0.004 % 14:35: left eye [place] as ophthalmic 39 at Medical solution bedtime. Branch sevelamer Yes 1600mg Take 1,600 Univers 800 mg 1-09 mg by ity of tablet 14:35: mouth 3 [place] 39 (three) Medical times Branch daily with meals. rosuvastati Yes 20mg Take 20 mg Univers n (CRESTOR) 09 by mouth ity of 20 mg 14:35: at [place] tablet 39 bedtime. Medical Branch esomeprazol Yes 40mg Take 40 mg Univers e 40 mg 09 by mouth ity of capsule 14:35: daily [place] 39 breakfast. Medical Branch conjugated conjugated 2015-11 No .9MG conjugated [place] estrogens estrogens 11-11 estrogens da 0.3 mg 0.3 mg 00:00: [...] mg by oral Outreac route. h Program BD BD No BD [place] [...] 29 gauge x 29 gauge x Health 1/" 11/07" 11/07" Outreac h Program calcitriol calcitriol No calcitriol [place] 0.25 mcg 0.25 mcg 0.25 mcg da capsule capsule capsule Episco p TAKE 2 TAKE 2 TAKE 2 al CAPSULES BY CAPSULES BY CAPSULES Health MOUTH EVERY MOUTH EVERY BY MOUTH Outreac DAY DAY EVERY DAY h Program carvedilol carvedilol No carvedilol [place] [...] A h DAY Program GaviLyte-G GaviLyte-G No GaviLyte-G [place] 236 236 236 da gram-22.74 gram-22.74 gram-22.74 Episcop gram-6.74 gram-6.74 gram-6.74 al gram-5.86 gram-5.86 gram-5.86 Health gram oral gram oral gram oral Outreac solution solution solution h TAKE 2000 TAKE 2000 TAKE 2000 Program ML BY MOUTH ML BY MOUTH ML BY DIRECTED DIRECTED MOUTH TWICE DAILY TWICE DAILY DIRECTED FOR 1 DAY FOR 1 DAY TWICE DAILY FOR 1 DAY insulin insulin No insulin [place] r aspar [...] MOUTH 4 Outreac TIMES h DAILY Program Corie Fontenot No Toed Merler SoloStar SoloStar SoloStar da U-300 U-300 U-300 [...] Source Name Name influenza, influenza, 2021-08-06 Completed [place] injectable, injectable, 00:00:00 [facility] quadrivalent quadrivalent Outreach P julianne COVID-19 vaccine, COVID-19 vaccine, 2021-01-10 Completed [place] vector-nr, rS-Ad26, vector-nr, rS-Ad26, 00:00:00 [facility] PF, 0.5 mL (Siva Power) PF, 0.5 mL (Siva Power) Outreach Program pneumococcal pneumococcal 2020-11-23 Completed [place] polysaccharide PPV23 polysaccharide PPV23 00:00:00 [facility] am influenza, influenza, 2020-08-06 Completed [place] injectable, injectable, 00:00:00 [facility] quadrivalent quadrivalent Outreach P rogram influenza, influenza, 2019-08-06 Completed [place] injectable, injectable, 00:00:00 [facility] quadrivalent quadrivalent Outreach P rogram Tdap Tdap 2016-11-06 Completed [place] 00:00:00 [facility] am Influenza Virus 2015-08-03 Completed Universit y of Vaccine 00:00:00 [facility] Influenza Virus 2015-08-03 Completed Universit y of Vaccine 00:00:00 [facility] Influenza Virus 2015-08-03 Completed Universit y of Vaccine 00:00:00 [facility] Influenza Virus 2014-07-30 Completed Universit y of Vaccine 00:00:00 [facility] Influenza Virus 2014-07-30 Completed Universit y of Vaccine 00:00:00 [facility] Influenza Virus 2014-07-30 Completed Universit y of Vaccine 00:00:00 [facility] Hep B, Adol or Pedi 2013-12-11 Completed Unive rsity of Dosage 00:00:00 [facility] Hep B, Adol or Pedi 2013-12-11 Completed Unive rsity of Dosage 00:00:00 [facility] Hep B, Adol or Pedi 2013-12-11 Completed Unive rsity of Dosage 00:00:00 [facility] Influenza Virus 2013-07-19 Completed Universit y of Vaccine 00:00:00 [facility] Influenza Virus 2013-07-19 Completed Universit y of Vaccine 00:00:00 [facility] Influenza Virus 2013-07-19 Completed Universit y of Vaccine 00:00:00 [facility] Influenza Virus 2012-07-09 Completed Universit y of Vaccine 00:00:00 [facility] Influenza Virus 2012-07-09 Completed Universit y of Vaccine 00:00:00 [facility] Influenza Virus 2012-07-09 Completed Universit y of Vaccine 00:00:00 [facility] Influenza Virus 2011-07-29 Completed Universit y of Vaccine 00:00:00 [facility] Influenza Virus 2011-07-29 Completed Universit y of Vaccine 00:00:00 [facility] Influenza Virus 2011-07-29 Completed Universit y of Vaccine 00:00:00 [facility] Pneumococcal 13 2011-06-22 Completed Universit y of Conjugate, PCV13 00:00:00 [facility] dical (Prevnar 13) Branch PPD (TB) 2011-06-22 Completed University of 00:00:00 [facility] Pneumococcal 13 2011-06-22 Completed Universit y of Conjugate, PCV13 00:00:00 [facility] dical (Prevnar 13) Branch PPD (TB) 2011-06-22 Completed University of 00:00:00 [facility] Pneumococcal 13 2011-06-22 Completed Universit y of Conjugate, PCV13 00:00:00 [facility] dical (Prevnar 13) Branch PPD (TB) 2011-06-22 Completed University of 00:00:00 [facility] Vital Signs Vital Name Observation Time Observation Value Comments Source BP Diastolic 2021-12-14 00:00:00 70 mm[Hg] [place] [facility] Height 2021-12-14 00:00:00 63 [in_i] [place] [facility] BMI (Body Mass 2021-12-14 00:00:00 34.5 kg/m2 [place] costumed character [facility] Index) Health Outreach Program BP Systolic 2021-12-14 00:00:00 130 mm[Hg] [place] [facility] Body Weight 2021-12-14 00:00:00 3120 [oz_av] [place] [facility] BP Diastolic 2021-12-02 00:00:00 64 mm[Hg] [place] [facility] Height 2021-12-02 00:00:00 63 [in_i] [place] [facility] BMI (Body Mass 2021-12-02 00:00:00 35.1 kg/m2 [place] costumed character [facility] Index) Health Outreach Program BP Systolic 2021-12-02 00:00:00 113 mm[Hg] [place] [facility] Body Weight 2021-12-02 00:00:00 198 [lb_av] [place] [facility] BP Diastolic 2021-11-15 00:00:00 67 mm[Hg] [place] [facility] Height 2021-11-15 00:00:00 63 [in_i] [place] [facility] BMI (Body Mass 2021-11-15 00:00:00 35.2 kg/m2 [place] costumed character [facility] Index) Health Outreach Program BP Systolic 2021-11-15 00:00:00 135 mm[Hg] [place] [facility] Body Weight 2021-11-15 00:00:00 198.8 [lb_av] [place] [facility] BP Diastolic 2021-10-27 00:00:00 64 mm[Hg] [place] [facility] Height 2021-10-27 00:00:00 63 [in_i] [place] [facility] BMI (Body Mass 2021-10-27 00:00:00 36.1 kg/m2 [place] costumed character [facility] Index) Health Outreach Program BP Systolic 2021-10-27 00:00:00 136 mm[Hg] [place] [facility] Body Weight 2021-10-27 00:00:00 3264 [oz_av] [place] [facility] Systolic blood 2021-09-13 17:06:00 157 mm[Hg] [facility] pressure Medical Branch Diastolic blood 2021-09-13 17:06:00 80 mm[Hg] [facility] pressure Medical Branch Heart rate 2021-09-13 17:04:00 63 /min [facility] Body weight 2021-09-13 17:04:00 90.266 kg [facility] Oxygen saturation 2021-09-13 17:04:00 96 /min [facility] in Arterial blood Medical Br anch by Pulse oximetry BP Diastolic 2021-04-29 00:00:00 70 mm[Hg] [facility] Height 2021-04-29 00:00:00 63 [in_i] [facility] [facility] BMI (Body Mass 2021-04-29 00:00:00 36.7 kg/m2 [facility] costumed character Medical Index) Group BP Systolic 2021-04-29 00:00:00 130 mm[Hg] [place] [facility] Body Weight 2021-04-29 00:00:00 207 [lb_av] [facility] BP Diastolic 2020-12-31 00:00:00 68 mm[Hg] [facility] Height 2020-12-31 00:00:00 63 [in_i] [place] [facility] BMI (Body Mass 2020-12-31 00:00:00 37.6 kg/m2 [facility] costumed character Medical Index) Group BP Systolic 2020-12-31 00:00:00 136 mm[Hg] [facility] Body Weight 2020-12-31 00:00:00 212 [lb_av] [place] [facility] BP Diastolic 2020-12-08 00:00:00 72 mm[Hg] [place] [facility] Height 2020-12-08 00:00:00 63 [in_i] [place] [facility] BMI (Body Mass 2020-12-08 00:00:00 37 kg/m2 [place] cost[facility]) Health Outreach Program BP Systolic 2020-12-08 00:00:00 144 mm[Hg] [place] [facility] Body Weight 2020-12-08 00:00:00 3344 [oz_av] [facility] BP Diastolic 2019-09-17 00:00:00 80 mm[Hg] [place] [facility] Height 2019-09-17 00:00:00 63 [in_i] [place] [facility] BMI (Body Mass 2019-09-17 00:00:00 35.3 kg/m2 [place] costumed character [facility] Index) Health Outreach Program BP Systolic 2019-09-17 00:00:00 150 mm[Hg] [place] [facility] Body Weight 2019-09-17 00:00:00 199 [lb_av] [facility] BP Diastolic 2019-09-10 00:00:00 76 mm[Hg] [place] [facility] Height 2019-09-10 00:00:00 63 [in_i] [place] [facility] BMI (Body Mass 2019-09-10 00:00:00 35.6 kg/m2 [place] costumed [facility]) Health Outreach Program BP Systolic 2019-09-10 00:00:00 144 mm[Hg] [place] [facility] Body Weight 2019-09-10 00:00:00 200.9 [lb_av] [place] [facility] Procedures Procedure Date / Time Performing Clinician Source Performed TRANSTHORACIC ECHO (TTE) 2021-09-21 19:32:00 Jose Lester [facility] COMPLETE Medical Branch CONSENT/REFUSAL FOR 2021-09-21 19:01:46 Doctor Unassigned, [facility] DIAGNOSIS AND TREATMENT [place] [facility] ASSIGNMENT OF BENEFITS 2021-09-21 19:01:15 [facility] [place] [facility] HB ECG ROUTINE & RHYTHM 2021-09-13 17:08:[address] [facility] STRIP Medical Branch EXTERNAL PROVIDER - ADC 2021-08-12 05:01:00 Doctor Unassigned, U [facility] REFERRAL [place] [facility] Cholecystectomy 2021-08-06 00:00:00 Wiley Ep iscopal Health Outreach Program MR, 2020-12-31 00:00:00 Wiley Me dical cholangiopancreatogram, w/ Group contrast unlisted imaging order 2020-12-15 00:00:00 [facility] MAMMO, screening, digital, 2020-12-08 00:00:00 [place] [facility] bilateral [facility]reach [facility] CT, abdomen + pelvis, w/ 2020-12-08 00:00:00 [place] [facility] contrast Health Outreach Program MAMMO, screening, digital, 2019-09-10 00:00:00 [place] [facility]reach [facility] DEXA, axial skeleton 2019-09-10 00:00:00 [place] [facility] Colonoscopy 2016-03-15 00:00:00 [place] [facility] Total Hysterectomy 2009-11-06 00:00:00 [place] [facility] Section 1988-11-06 00:00:00 [place] [facility] Graft of Skin to Skin [facility] Bilateral Tubal Ligation [place] [facility] Plan of Care Planned Activity Planned Date Details Comments Source Diagnostic Test 2021-12-14 HbA1c (hemoglobin [place] [facility] Pending 00:00:00 A1c), blood [code Health Out reach = HbA1c Program (hemoglobin A1c), blood] Diagnostic Test 2021-12-14 CBC w/ auto diff [place] [facility] Pending 00:00:00 [code = CBC w/ Health Outrea ch auto diff] Program Diagnostic Test 2021-12-14 lipid panel, serum [place] cost[facility] Pending 00:00:00 [code = lipid Health Outreac h panel, serum] Program Diagnostic Test 2021-12-14 TSH + free T4, [place] [facility] Pending 00:00:00 serum [code = TSH Health Out reach + free T4, serum] Program Diagnostic Test 2021-12-14 hepatic function [place] one[place] [facility] Pending 00:00:00 panel, serum [[facility] Ou fred = hepatic function Program panel, serum] Encounters Start End Encounter Admission Attending Care Care Encounter Source Date/Time Date/Time Type Type Clinicians Facility Department ID 2021-12-14 2021-12-14 Outpatient QASIM VALENCIA [place] [id number] [place] 06:44:00 06:44:00 _ANN 0208 [facility] 2021-12-14 2021-12-14 Olya Oneil [facility] - 8 [place] 00:00:00 00:00:00 Wiley Platt 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 Program 2021-12-10 2021-12-10 Outpatient QASIM VALENCIA [place] [id number] [place] 02:13:00 02:13:00 _ANN 0204 da [facility] 2021-12-02 2021-12-02 Outpatient QASIM VALENCIA [place] [id number] [place] 05:37:00 05:37:00 _ANN 0127 da [facility] 2021-12-02 2021-12-02 Outpatient QASIM VALENCIA [place] [id number] [place] 05:37:00 05:37:00 _ANN 0201 [facility] 2021-12-02 2021-12-02 Maverick Nelson [facility] - [id number] [place] 00:00:00 00:00:00 Wiley Breen MD: [address] [facility] [address] [place], [place], [place] Outreac [address] h , Ph. Program 2021-11-15 2021-11-15 Outpatient QASIM VALENCIA [place] [id number] [place] 04:13:00 04:13:00 _ANN 0110 da [facility] 2021-11-15 2021-11-15 Maverick Nelson [facility] [place] - [id number] [place] 00:00:00 00:00:00 Wiley Breen MD: [id number] [facility] Epis spectroscopist [place] [address] [facility] [address] [place] Program [phone] , Ph. 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 Program 2021-09-21 2021-09-21 [facility] [id number] Univers 13:00:00 23:59:00 JOSE kahn [facility] 2021-09-21 2021-09-21 [facility] [id number] Univers 13:00:00 23:59:00 Encounter Jose WISE [id number] ity [facility] [id number] [facility] [id number] [address] 2021-09-13 2021-09-13 [facility] [id number] Univers 11:00:00 11:27:51 JOSE kahn [facility] 2021-09-13 2021-09-13 [facility] [id number] Univers 10:48:07 11:27:51 Visit Jose WISE [id number] ity [facility] [id number] [facility] [id number] Ct dical NAL 059 Branch [facility] 2021-08-12 2021-08-12 Orders Doctor SAL [id number] [facility] 00:00:00 00:00:00 Only Unassigned, MCKIN[place] [id number] [place] [facility] [id number] [place] as [id number] [facility] jalil 009 Branch 2021-08-10 2021-08-10 Outpatient [facility] [id number] [place] 00:00:00 00:00:00 352 Method i 2021-07-23 2021-07-23 Outpatient TRISTON CALLAHAN [facility] [id number] [place] 00:00:00 00:00:00 793 Method i 2021-07-22 2021-07-22 Outpatient RIKA [facility] [id number] 299 [place] 00:00:00 00:00:00 ERIC 502 Method i 2021-07-22 2021-07-22 Outpatient [facility] [id number] [place] 00:00:00 00:00:00 094 Method i 2021-07-22 2021-07-22 Outpatient TRISTON CALLAHAN [facility] [id number] [place] 00:00:00 00:00:00 660 Method i 2021-06-17 2021-06-17 Outpatient RIKA [facility] [id number] [place] 00:00:00 00:00:00 ERIC 976 Method i 2021-06-03 2021-06-05 Outpatient CHEEMA [facility] [id number] 389 [place] 00:00:00 00:00:00 MARISA 500 Method i 2021-05-28 2021-05-28 Outpatient OPARSEN, [facility] 021 [id number] [place] 00:00:00 00:00:00 ANTONIO 275 Method i 2021-05-25 2021-05-25 Outpatient OPARSEN, [facility] [id number] [place] 00:00:00 00:00:00 ANTONIO [address] 2021-04-29 2021-04-29 Outpatient IHDE_G [facility]G MMG [id number] [place] 03:46:00 03:46:00 0624 Medical Group 2021-04-29 2021-04-29 Outpatient IHDE_G MMG MMG [id number] [place] 03:46:00 03:46:00 06 da Medical Group 2021-04-29 2021-04-29 Yadiel [facility] [place] - [id number] M atagor 00:00:00 00:00:00 Vic Hutchinson MD: Medical Medica [address], [place] [address] , Ph. [phone] 2021-04-01 2021-04-01 Outpatient [facility] [id number] 751 [place] 00:00:00 00:00:[address] 2021-03-15 2021-03-15 Outpatient OPPERMANN, [facility] 021 [id number] [place] 00:00:00 00:00:00 ANTONIO [address] 2021-03-11 2021-03-11 Outpatient OPPERMANN, [facility] [id number] [place] 00:00:00 00:00:00 ANTONIO [address] 2021-01-19 2021-01-19 Outpatient OPPERMANN, [facility] [id number] [place] 00:00:00 00:00:00 ANTONIO [address] 2021-01-03 2021-01-03 Outpatient IHDE_G MMG MMG [id number] [place] 12:42:00 12:42:00 0228 da Medical Group 2021-01-03 2021-01-03 Outpatient IHDE_G MMG MMG [id number] [place] 12:42:00 12:42:00 0623 da Medical Group 2020-12-31 2020-12-31 Outpatient IHDE_G MMG MMG [id number] [place] 12:21:00 12:21:00 022 da Medical Group 2020-12-31 2020-12-31 Outpatient IHDE_G MMG MMG [id number] [place] 12:21:00 12:21:00 022 da Medical Group 2020-12-31 2020-12-31 Yadiel MMG [place] - [id number] M atagor 00:00:00 00:00:00 Vic Hutchinson MD: Medical Medica l [address] [facility] [address], [place] [address] , Ph. [phone] 2020-12-15 2020-12-15 Outpatient IHDE_G [facility] [id number] [place] 05:36:00 05:36:00 0209 [facility] 2020-12-15 2020-12-15 Yadiel [facility] [place] - [id number] M atagor 00:00:00 00:00:00 Vic Hutchinson MD: Medical Medica l [address] [facility] [address], [place] [address] , Ph. [phone] 2020-12-09 2020-12-09 Outpatient QASIM SANA GAS[place] [address] [place] 10:13:00 10:13:00 _ANN [facility] 2020-12-09 2020-12-09 Outpatient THOR_OLYA LINARESSANA [facility] 68 [place] 10:13:00 10:13:00 _ANN 0209 [facility] 2020-12-09 2020-12-09 Outpatient SHIMSTEVEN_OLYA LINARESSANA [facility] 68 [place] 10:13:00 10:13:00 _ANN 1119 [facility] 2020-12-08 2020-12-08 Outpatient THOR_OLYA LINARESSANA [facility] 68 64 [place] 12:33:00 12:33:00 _ANN 0202 [facility] 2020-12-08 2020-12-08 Olya Oneil GASANA [place] - [id number] [place] 00:00:00 00:00:00 Wiley Platt ELECTRIC SHOVEL OPERATOR: [facility] SANA - ANNIE [place], [place], [place] 3 [place] [address] h , Ph. Program 2020-03-25 2020-03-25 Outpatient QASIM SANA [facility] 68 [place] 04:35:00 04:35:00 _ANN 0914 da [facility] 2019-09-17 2019-09-17 Olya VALENCIA [place] - [id number] [place] 00:00:00 00:00:00 [place] ELECTRIC SHOVEL OPERATOR: [facility] [address], [address] [address] Progr am , Ph. 2019-09-10 2019-09-10 Olya VALENCIA [place] - [id number] [place] 00:00:00 00:00:00 Shimek, [place] da ELECTRIC SHOVEL OPERATOR: [facility] [facility] [address], [address] [address] Progr am , Ph. 2016-09-27 2016-09-27 Outpatient Raju_P [facility] MMG [id number] [place] 03:16:00 03:16:00 0205 [facility] 2016-09-27 2016-09-27 Outpatient Raju_P MMG MMG [id number] [place] 03:16:00 03:16:00 0609 [facility] Results Test Description Test Time Test Comments Results Result Comments Source SARS-CoV-2 (COVID-19) RNA [Presence] in Respiratory sp ecimen by 2021-07-23 01:09:07 LAKHWINDER with probe detection Test Item Value Reference Range Interpretation Comme nts SARS-CoV-2 (COVID-19) RNA [Presence] in Respiratory Not detected No t-Detected specimen by LAKHWINDER with probe detection (test code = 12170-5) Whether patient is employed in a healthcare setting (test code = 31336-1) Whether the patient has symptoms related to condition of interest (test code = 65495-5) Patient was hospitalized because of this condition (test code = 93875-5) Whether the patient was admitted to intensive care unit (ICU) for condition of interest (test code = 16822-7) Whether patient resides in a congregate care setting (test code = 93848-9) SARS-CoV-2 (COVID-19) RNA [Presence] in Respiratory specimen by LAKHWINDER with probe [id number] 13:28:28 Test Item Value Reference Range Interpretation Comments SARS-CoV-2 (COVID-19) RNA Not detected Not-Detected [Presence] in Respiratory specimen by LAKHWINDER with probe detection (test code = 35344-4) Whether patient is employed in a healthcare setting (test code = 63378-6) Whether the patient has symptoms related to condition of interest (test code = 45304-0) Patient was hospitalized because of this condition (test code = 47846-0) Whether the patient was admitted to intensive care unit (ICU) for condition of interest (test code = 69028-6) Whether patient resides in a congregate care setting (test code = 31933-5) SARS-CoV-2 (COVID-19) RNA [Presence] in Respiratory specimen by LAKHWINDER with probe [id number] 17:27:41 Test Item Value Reference Range Interpretation Comments SARS-CoV-2 (COVID-19) RNA Not detected Not-Detected [Presence] in Respiratory specimen by LAKHWINDER with probe detection (test code = 31670-7) Whether patient is employed in a healthcare setting (test code = 10852-5) Whether the patient has symptoms related to condition of interest (test code = 38208-5) Patient was hospitalized because of this condition (test code = 11295-7) Whether the patient was admitted to intensive care unit (ICU) for condition of interest (test code = 32049-8) Whether patient resides in a congregate care setting (test code = 82288-8) Free T4 and TSH panel - Serum or [id number] 00:00:00 Test Item Value Reference Range Interpretation Comments Thyrotropin [Units/volume] in 0.968 uIU/mL 0.450-4.500 Serum or Plasma by Detection limit <= 0.005 mIU/L (test code = 52518-0) Thyroxine (T4) free 1.12 NG/dL 0.82-1.77 [Mass/volume] in Serum or Plasma (test code = 3024-7) [facility] W Auto Differential panel - Blood [...] = 706-2) immature cells (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 code = 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 cells) Neutrophils [#/volume] in Blood 3.2 [...] Blood by Automated count (test code = 13464-0) Nucleated erythrocytes/100 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 leukocytes [Ratio] in Blood by Automated count (test code = 16887-5) Morphology [interpretation] in 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 Blood Narrative (test code = 13221-9) [facility] - Serum or Plasma 2019-09-11 [...] or Plasma by calculation (test code = 11536-0) Cholesterol in LDL [Mass/volume] in 86 mg/dL 0-99 Serum or Plasma by calculation (test code = 60439-2) comment: (test code = comment:) 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 [facility] 1999 panel - Serum or [id number] 00:00:00 Test Item Value Reference Range Interpretation [...] Serum or Plasma (test code = 1742-6) [facility]em[facility] A1c/Hemoglobin.total in [id number] 00:00:00 Test Item Value Reference Range Interpretation Comments Hemoglobin A1c/Hemoglobin.total in 8.4 % 4.8-5.6 H Blood (test code = 4548-4) Glucose mean value [Mass/volume] in 194 mg/dL Blood Estimated from glycated hemoglobin (test code = 61447-2) [facility] panel, [id number] 00:00:00 Test Item Value Reference Range Interpretation Comments interpretation (test code = note interpretation) pdf image (test code = pdf image) . [facility] patient [id number] 00:00:00 Test Item Value Reference Range Interpretation Comments pdf image (test code = pdf not applicable image) [facility] and TSH panel - Serum or [id number] 00:00:00 Test Item Value Reference Range Interpretation Comments Thyrotropin [Units/volume] in 0.968 uIU/mL 0.450-4.500 Serum or Plasma by Detection limit <= 0.005 mIU/L (test code = 99855-6) Thyroxine (T4) free 1.12 NG/dL 0.82-1.77 [Mass/volume] in Serum or Plasma (test code = 3024-7) [facility] Auto Differential panel - Blood 2019-09-11 [...] = 706-2) immature cells (test code = 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 cells) Neutrophils [#/volume] in Blood 3.2 [...] Blood by Automated count (test code = 72385-9) Nucleated erythrocytes/100 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 leukocytes [Ratio] in Blood by Automated count (test code = 38149-5) Morphology [interpretation] in 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 Blood Narrative (test code = 18242-8) [facility] panel - Serum or Plasma 2019-09-11 [...] or Plasma by calculation (test code = 86121-5) Cholesterol in LDL [Mass/volume] in 86 mg/dL 0-99 Serum or Plasma by calculation (test code = 40963-8) comment: (test code = comment:) 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 [facility] 1999 panel - Serum or [id number] 00:00:00 Test Item Value Reference Range Interpretation [...] Serum or Plasma (test code = 1742-6) [facility]em[facility] A1c/Hemoglobin.total in [id number] 00:00:00 Test Item Value Reference Range Interpretation Comments Hemoglobin A1c/Hemoglobin.total in 8.4 % 4.8-5.6 H Blood (test code = 4548-4) Glucose mean value [Mass/volume] in 194 mg/dL Blood Estimated from glycated hemoglobin (test code = 04087-0) [facility], [id number] 00:00:00 Test Item Value Reference Range Interpretation Comments interpretation (test code = note interpretation) pdf image (test code = pdf image) . [facility] patient [id number] 00:00:00 Test Item Value Reference Range Interpretation Comments pdf image (test code = pdf not applicable image) [facility]
[2022-01-10 07:13] LABS: Absolute Lymphocytes (CBC) 0.9 K/uL (0.7-4.9); Hematocrit 25.1 % (36.0-45.0); Lymphocytes % 17.6 % (15.3-44.8); MPV 8.3 fL (7.6-11.3); RBC Red Blood Cell Count 2.99 M/uL (3.86-4.86)
[2022-01-10 07:17] LABS: Protime INR 1.15
[2022-01-10 07:34] LABS: Albumin 3.2 g/dL (3.4-5.0); Bilirubin Direct 0.2 mg/dL (0-0.2); Bilirubin Total 0.6 mg/dL (0.2-1.0); Magnesium 2.5 mg/dL (1.8-2.4); Protein, Total 7.7 g/dL (6.4-8.2)
[2022-01-10 07:38] LABS: Potassium 6.2 mmol/L (3.5-5.1)
--- NOTE | 2022-01-10 07:54 | ER ---
Nurse's Notes [facility] Name: Tulio Smith Age: 61 yrs Sex: Female : 1960 Arrival Date: 01/10/2022 Time: 05:40 Bed 15 Private MD: Diagnosis: Fluid overload;Hyperkalemia Presentation: 01/10 05:45 Chief complaint: EMS states: Called for patient with shortness of breath while at 1 Dialysis clinic, ongoing x 1 month; Per EMS, patient placed on 2L via NC for RA O2 in the low 90's%. Coronavirus screen: shortness of breath. Ebola Screen: No symptoms or risks identified at this time. Initial Sepsis Screen: Does the patient meet any 2 criteria? No. Patient's initial sepsis screen is negative. Does the patient have a suspected source of infection? No. Patient's initial sepsis screen is negative. Risk Assessment: Do you want to hurt yourself or someone else? Patient reports no desire to harm self or others. Onset of symptoms was January 10, 2022. 05:45 Method Of Arrival: EMS: [facility] 05:45 Acuity: CLARICE 3 lp1 Historical: - Allergies: 05:47 Heparin; lp1 05:47 Rocephin; lp1 - Home Meds: 06:03 Toujeo SoloStar U-300 Insulin 300 unit/mL (1.5 mL) subcutaneous inpn nightly [Active]; lp1 carvedilol 25 mg Oral tab 2 times per day [Active]; doxazosin 2 mg oral tab 1 tab once daily [Active]; nifedipine 90 mg Oral TbER 1 tab nightly [Active]; ramipril Oral nightly [Active]; isosorbide mononitrate 60 mg Oral Tb24 1 tab once daily [Active]; Colace 100 mg oral cap 1 cap once daily [Active]; omeprazole 40 mg Oral cpDR 1 cap once daily [Active]; Crestor 20 mg Oral tab 1 tab nightly [Active]; Premarin 0.9 mg Oral tab 1 tab once daily [Active]; Travatan Z 0.004 % ophthalmic drop 1 drop nightly [Active]; gabapentin 100 mg oral tab twice a day [Active]; Renvela 800 mg Oral tab 3 tabs 3 times per day [Active]; Vitamin D3 125 mcg (5,000 unit) oral tab daily [Active]; - PMHx: 05:47 Dialysis; Glaucoma; Hypertensive disorder; lp1 - PSHx: 05:47 Cholecystectomy; section; tubal ligation; lp1 - Immunization history:: Adult Immunizations up to date. - Social history:: Smoking status: Patient denies any tobacco usage or history of. Screenin:03 Abuse screen: Denies threats or abuse. Nutritional screening: No deficits noted. ll3 Tuberculosis screening: No symptoms or risk factors identified. 07:44 Fall Risk None identified. ic1 Assessment: 06:03 General: Appears uncomfortable, Behavior is calm, cooperative. Pain: Denies pain. ll3 Neuro: Level of Consciousness is awake, alert, obeys commands, Oriented to person, place, time, situation. Cardiovascular: Patient's skin is warm and dry. Cardiovascular: Dialysis shunt: in the left arm, with palpable thrill, with auscultated bruit, with no erythema, with no edema, no bleeding noted. Respiratory: Reports shortness of breath at rest labored breathing Respiratory effort is labored, Respiratory pattern is regular, symmetrical, Breath sounds are clear bilaterally. Denies cough. Derm: Skin is pink, warm \T\ dry. 07:44 Reassessment: Critical labs reported to ELIZABETH Velazquez. ic1 07:45 General:. Respiratory: Reports shortness of breath at rest. ic1 08:43 Reassessment: Dialysis notified that she is on the way to transport pt to dialysis area ic1 to begin treatment. Pt notified. Meds held until post-dialysis. 09:27 Reassessment: Pt transported to dialysis via stretcher. ic1 Vital Signs: 05:45 BP 137 / 69; Pulse 77; Resp 20; Temp 98.4(O); Pulse Ox 91% on R/A; Weight 88 kg (R); lp1 Height 5 ft. 3 in. (160.02 cm); Pain 0/10; 06:03 Temp 98.4(O); ll3 07:50 BP 135 / 74; Pulse 76; Resp 16; Pulse Ox 95% ; ic1 09:28 BP 134 / 72; Pulse 73; Resp 20; Pulse Ox 100% on NC; ic1 05:45 Body Mass Index 34.37 (88.00 kg, 160.02 cm) lp1 ED Course: 05:40 Patient arrived in ED. mw2 05:47 Triage completed. lp1 05:47 Arm band placed on. lp1 05:57 Isabel Velazquez FNP-C is [facility]. kb 05:57 Lc Sullivan MD is Attending Physician. kb 06:00 Luisito Melgoza, RN is Primary Nurse. ll3 06:03 Patient has correct armband on for positive identification. Placed in gown. Bed in low ll3 position. Call light in reach. Side rails up X 1. Adult w/ patient. quality assurance monitor body on. Pulse ox on. NIBP on. Door closed. Noise minimized. Warm blanket given. Head of bed elevated. 06:12 XRAY Chest (1 view) In Process Unspecified. EDMS 07:44 Inserted saline lock: 20 gauge in right antecubital area, using aseptic technique. ic1 Blood collected. 07:53 Stacy Allen MD is Hospitalizing Provider. kb 08:14 COVID swab sent to lab. mb7 Administered Medications: No medications were administered Outcome: 07:53 Decision to Hospitalize by Provider. kb 11:48 Admitted to Med/surg via wheelchair, room 208, with oxygen, with chart, Report called ic1 to MELITON Camp 11:48 Condition: stable 12:07 Patient left the ED. ic1 Signatures: Dispatcher [employer] EDMS Isabel Velazquez FNP-C FNP-Nikki Hand RN RN lp1 Dominic Ocampo 2 Luisito Melgoza, MELITON RN 3 Olya Nuñez mb7 Fernanda Rocha RN RN ic1
--- NOTE | 2022-01-10 07:54 | EDPHYS ---
Physician Documentation [facility] Name: Tulio Smith Age: 61 yrs Sex: Female : 1960 Arrival Date: 01/10/2022 Time: 05:40 Bed 15 Private MD: ED Physician Lc Sullivan HPI: 01/10 06:27 This 61 yrs old Black Female presents to ER via EMS with complaints of shortness of kb breath. 06:27 The patient has shortness of breath at rest. Onset: The symptoms/episode began/occurred kb 1 month(s) ago. Duration: The symptoms are continuous. The patient's shortness of breath is aggravated by exertion, is alleviated by application of supplemental oxygen. Associated signs and symptoms: The patient has no apparent associated signs or symptoms. Severity of symptoms: At their worst the symptoms were moderate in the emergency department the symptoms are unchanged. The patient has experienced similar episodes in the past. The patient has been recently seen by a physician:. Pt reports she has been having shortness of breath for a month. Was seen here at onset of symptoms and was given a unit of blood. States "I told them that wasn't enough and I needed more, but they sent me home." States she was scheduled to come in today or tomorrow for a transfusion, but the shortness of breath got worse. Historical: - Allergies: 05:47 Heparin; lp1 05:47 Rocephin; lp1 - Home Meds: 06:03 Corie Michaels U-300 Insulin 300 unit/mL (1.5 mL) subcutaneous inpn nightly [Active]; lp1 carvedilol 25 mg Oral tab 2 times per day [Active]; doxazosin 2 mg oral tab 1 tab once daily [Active]; nifedipine 90 mg Oral TbER 1 tab nightly [Active]; ramipril Oral nightly [Active]; isosorbide mononitrate 60 mg Oral Tb24 1 tab once daily [Active]; Colace 100 mg oral cap 1 cap once daily [Active]; omeprazole 40 mg Oral cpDR 1 cap once daily [Active]; Crestor 20 mg Oral tab 1 tab nightly [Active]; Premarin 0.9 mg Oral tab 1 tab once daily [Active]; Travatan Z 0.004 % ophthalmic drop 1 drop nightly [Active]; gabapentin 100 mg oral tab twice a day [Active]; Renvela 800 mg Oral tab 3 tabs 3 times per day [Active]; Vitamin D3 125 mcg (5,000 unit) oral tab daily [Active]; - PMHx: 05:47 Dialysis; Glaucoma; Hypertensive disorder; lp1 - PSHx: 05:47 Cholecystectomy; section; tubal ligation; lp1 - Immunization history:: Adult Immunizations up to date. - Social history:: Smoking status: Patient denies any tobacco usage or history of. ROS: 06:26 Constitutional: Negative for fever, chills, and weight loss. kb 06:26 Respiratory: Positive for dyspnea on exertion, shortness of breath. 06:26 All other systems are negative. Exam: 06:26 Constitutional: This is a well developed, well nourished patient who is awake, alert, kb and in no acute distress. Head/Face: Normocephalic, atraumatic. ENT: Moist Mucous membranes Respiratory: Respirations even and unlabored. No increased work of breathing. Talking in full sentences Abdomen/GI: Soft, non-tender. No distention Skin: Warm, dry with normal turgor. Normal color. MS/ Extremity: Pulses equal, no cyanosis. Neurovascular intact. Full, normal range of motion. Neuro: Awake and alert, GCS 15, oriented to person, place, time, and situation. Moves all extremities. Normal gait. Psych: Awake, alert, with orientation to person, place and time. Behavior, mood, and affect are within normal limits. 06:26 Cardiovascular: Rate: normal, Rhythm: regular, Heart sounds: murmur. 06:26 ECG was reviewed by the Attending Physician. Vital Signs: 05:45 BP 137 / 69; Pulse 77; Resp 20; Temp 98.4(O); Pulse Ox 91% on R/A; Weight 88 kg (R); lp1 Height 5 ft. 3 in. (160.02 cm); Pain 0/10; 06:03 Temp 98.4(O); ll3 07:50 BP 135 / 74; Pulse 76; Resp 16; Pulse Ox 95% ; ic1 09:28 BP 134 / 72; Pulse 73; Resp 20; Pulse Ox 100% on NC; ic1 05:45 Body Mass Index 34.37 (88.00 kg, 160.02 cm) lp1 MDM: 05:57 Patient medically screened. kb 06:26 Data reviewed: vital signs, nurses notes. Data interpreted: Pulse oximetry: on room air kb is 90 %. Interpretation: borderline. 07:51 Counseling: I had a detailed discussion with the patient and/or guardian regarding: the kb historical points, exam findings, and any diagnostic results supporting the discharge/admit diagnosis, lab results, radiology results, the need for further work-up and treatment in the hospital. Physician consultation: Wellington Arora DO was contacted at 07:45, regarding consult, patient's condition, wants insulin and kayexalate given. Agrees to lasix if pt still makes urine. 07:52 Physician consultation: Stacy Allen MD was contacted at 07:52, regarding admission, kb to the telemetry unit. patient's condition, and will see patient in ED. ED course: Pt no longer makes urine, no lasix ordered. 01/10 05:59 Order name: Basic Metabolic Panel; Complete Time: 07:41 kb 01/10 05:59 Order name: CBC with Diff; Complete Time: 07:18 kb 01/10 05:59 Order name: LFT's; Complete Time: 07:41 kb 01/10 05:59 Order name: Magnesium; Complete Time: 07:41 kb 01/10 05:59 Order name: NT PRO-BNP; Complete Time: 07:41 kb 01/10 05:59 Order name: PT-INR; Complete Time: 07:18 kb 01/10 05:59 Order name: Troponin HS; Complete Time: 07:41 kb 01/10 05:59 Order name: XRAY Chest (1 view); Complete Time: 08:54 kb 01/10 05:59 Order name: Type And Screen kb 01/10 07:55 Order name: COVID-19 SARS RT PCR (Document "Date of Onset" if Symptomatic); Complete kb Time: 09:43 01/10 10:20 Order name: CBC with Automated Diff EDMS 01/10 10:20 Order name: CBC with Automated Diff EDMS 01/10 10:20 Order name: Comprehensive Metabolic Panel EDMS 01/10 10:20 Order name: Comprehensive Metabolic Panel EDMS 01/10 05:59 Order name: EKG; Complete Time: 06:01 kb 01/10 05:59 Order name: Cardiac monitoring; Complete Time: 06:00 kb 01/10 05:59 Order name: EKG - Nurse/Tech; Complete Time: 07:46 kb 01/10 05:59 Order name: IV Saline Lock; Complete Time: 07:46 kb 01/10 05:59 Order name: Labs collected and sent; Complete Time: 07:46 kb 01/10 05:59 Order name: O2 Per Protocol; Complete Time: 06:01 kb 01/10 05:59 Order name: O2 Sat Monitoring; Complete Time: 06:01 kb 01/10 10:08 Order name: 60g Consistent Carbohydrate (ADA 1800/2000) EDMS 01/10 10:08 Order name: Renal EDMS 01/10 10:20 Order name: CONS Physician Consult EDMS EC:26 Rate is 71 beats/min. Rhythm is regular. QRS [place] is Normal. [place] interval is normal at kb 194 msec. QRS interval is normal at 88 msec. QT interval is normal at 412 msec. Administered Medications: No medications were administered Disposition Summary: 01/10/22 07:53 Hospitalization Ordered Hospitalization Status: Observation kb Provider: Stacy Allen Location: Telemetry/MedSurg (observation) kb Condition: Stable kb Problem: new kb Symptoms: are unchanged kb Bed/Room Type: Standard Room Assignment: 208(01/10/22 11:13) bd Diagnosis - Fluid overload kb - Hyperkalemia kb Forms: - Medication Reconciliation Form kb - SBAR form kb Addendum: 01/12/2022 22:50 Co-signature as Attending Physician, Lc Sullivan MD. [facility] Signatures: Dispatcher [employer] EDWI Isabel Velazquez, IHSAN-C QUALITY HEAD-Nita Dumont Laura RN RN lp1 Lc Sullivan MD MD mh7 Fernanda Rocha RN RN ic1 Corrections: (The following items were deleted from the chart) 01/10 11:13 07:53 kb bd
[2022-01-10] MEDS ORDERED: SOD POLYSTYREN SUL 15 GM/60 ML UCUP ONE (08:26)
[2022-01-10] MEDS ORDERED: INSULIN -REGULAR HUMAN 50 UNIT/0.5 ML ML ONE (08:37)
[2022-01-10] MEDS ORDERED: D10W 250 ML IV ONE (08:39)
--- NOTE | 2022-01-10 08:52 | RAD REPORT ---
EXAM DESCRIPTION: RAD - Chest Single View - 01/10/2022 6:12 am CLINICAL HISTORY: DYSPNEA COMPARISON: Portable 12/25/2021 TECHNIQUE: AP portable chest image was obtained 01/10/2022 6:12 am . FINDINGS: Lung volumes are slightly reduced compared to the prior study. New alveolar opacification has developed in the lower right lung field. There is a diffusely prominent interstitial pattern that is increased from comparison. Right pleural effusion is now present. Cardiomegaly is similar to comp arison. Upper lobe vasculature is enlarged. There is peribronchial thickening seen. No pneumothorax. No acute bony abnormality seen. No acute aortic findings suspected. IMPRESSION: Heart, vasculature and lung markings support CHF/volume overload. Focal airspace opacification and pleural effusion on the right may be an asymmetric presentation of C HF. A superimposed or concurrent right lung base pneumonia should be considered and correlated with c linical and lab findings.
[2022-01-10] MEDS ORDERED: ONDANSETRON 4 MG/2 ML VIAL IV PRN (10:19)
[2022-01-10 12:35] VITALS: O2SAT 100
[2022-01-10 15:59] VITALS: BMI 33.4
[2022-01-10] MEDS ORDERED: EPOETIN ALFA-EPBX 10,000 UNIT/ML VIAL SQ ONE (16:00)
--- NOTE | 2022-01-10 19:26 | P.CNS ---
Date of Consult: 01/10/22 Reason for Consult: ESRD Requesting Physician: Stacy Allen Chief Complaint: Dyspnea History of Present Illness: 61 yo BF HTN, CKD, CHF presented to the ER with 3-4 days of moderate, progressive dyspnea in the setting of CHF. She reports 1-2 months of anorexia with associated weight loss. She has intermittent right flank pain. She is currently followed by GI for severe constipation. 06:27 This 61 yrs old Black Female presents to ER via EMS with complaints of shortness of kb breath. 06:27 The patient has shortness of breath at rest. Onset: The symptoms/episode began/occurred kb 1 month(s) ago. Duration: The symptoms are continuous. The patient's shortness of breath is aggravated by exertion, is alleviated by application of supplemental oxygen. Associated signs and symptoms: The patient has no apparent associated signs or symptoms. Severity of symptoms: At their worst the symptoms were moderate in the emergency department the symptoms are unchanged. The patient has experienced similar episodes in the past. The patient has been recently seen by a physician:. Pt reports she has been having shortness of breath for a month. Was seen here at onset of symptoms and was given a unit of blood. States "I told them that wasn't enough and I needed more, but they sent me home." States she was scheduled to come in today or tomorrow for a transfusion, but the shortness of breath got worse. Allergies heparin Allergy (Verified 07/28/21 14:27) Hives Home medications list reviewed: Yes Home Medications: Nifedipine [Adalat cc] 90 mg PO BEDTIME 02/11/16 Estrogens,Conj [Premarin*] 0.9 mg PO DAILY 09/11/16 Isosorbide Mononitrate [Isosorbide Mononitrate ER] 60 mg PO DAILY 09/11/16 Rosuvastatin [Crestor*] 20 mg PO BEDTIME 09/11/16 Sevelamer Carbonate [Renvela*] 1 tab PO TIDWM 09/11/16 ramipriL [Altace*] 5 mg PO Q12HR #60 cap 09/13/16 Insulin Glargine,Hum.rec.anlog [Toujeo Solostar] 40 units SQ DAILY 12/26/17 Calcitrol [Rocaltrol*] 0.5 mcg PO DAILY #30 cap 11/19/21 Cholecalciferol (Vitamin D3) [Vitamin D 5,000 IU Cap*] 5,000 unit PO DAILY #30 cap 11/19/21 Nepro Shake [Nepro*] 237 ml PO TID #30 can 11/19/21 Cholecalciferol (Vitamin D3) [Vitamin D 5,000 IU Cap*] 01/10/22 Docusate [Colace Cap*] 100 mg PO DAILY 01/10/22 Doxazosin [Cardura*] 2 mg PO DAILY 01/10/22 Gabapentin 100 mg PO DAILY 01/10/22 Omeprazole [Prilosec] 40 mg PO DAILY 01/10/22 carvediloL [Coreg*] 25 mg PO BID 01/10/22 - Past Medical/Surgical History Diabetic: Yes -: ESRD, hypertension, Diabetes-IDDM -: high cholesterol, -: Anemia chronic disease -: bilateral eye surgery, hysterectomy -: tubal ligation, C- Section, left arm fistula - Family History mom Medical History: Hypertension dad Medical History: Diabetes - Social History Alcohol use: No CD- Drugs: No Caffeine use: No Review of Systems 10-point ROS is otherwise unremarkable General: Weakness, Malaise Respiratory: SOB with Excertion Gastrointestinal: Nausea, Constipation Physical Examination Temp Pulse Resp BP Pulse Ox 97.7 F 80 18 132/60 92 01/10/22 16:00 01/10/22 16:00 01/10/22 16:00 01/10/22 16:00 01/10/22 16:00 General: In no apparent distress, Oriented x3, Cooperative HEENT: Atraumatic Neck: Supple Respiratory: Clear to auscultation bilaterally Cardiovascular: No edema, Regular rate/rhythm Gastrointestinal: Soft and benign, Non-distended Musculoskeletal: No clubbing, No contractures Integumentary: No rashes, No cyanosis Neurological: Normal speech Laboratory Data (last 24 hrs) 01/10/22 07:05: PT 13.3 H, INR 1.15 01/10/22 07:05: WBC 5.40, Hgb 8.2 L, Hct 25.1 L, Plt Count 198 01/10/22 07:05: Sodium 135 L, Potassium 6.2 H*, BUN 66 H, Creatinine 9.47 H*, Glucose 137 H, Magnesium 2.5 H, Total Bilirubin 0.6, AST 18, ALT 34, Alkaline Phosphatase 115 Imagings Data: EXAM DESCRIPTION: RAD - Chest Single View - 01/10/2022 6:12 am CLINICAL HISTORY: DYSPNEA COMPARISON: Portable 12/25/2021 TECHNIQUE: AP portable chest image was obtained 01/10/2022 6:12 am . FINDINGS: Lung volumes are slightly reduced compared to the prior study. New alveolar opacification has developed in the lower right lung field. There is a diffusely prominent interstitial pattern that is increased from comparison. Right pleural effusion is now present. Cardiomegaly is similar to comparison. Upper lobe vasculature is enlarged. There is peribronchial thickening seen. No pneumothorax. No acute bony abnormality seen. No acute aortic findings suspected. IMPRESSION: Heart, vasculature and lung markings support CHF/volume overload. Focal airspace opacification and pleural effusion on the right may be an asymmetric presentation of CHF. A superimposed or concurrent right lung base pneumonia should be considered and correlated with clinical and lab findings. Conclusions/Impression: ESRD -Acute HD today Hyperkalemia -Acute HD today HTN with CKD/ CHF -Hold antihypertensives at this time Diastolic CHF, A/C -HD with UF DM II with CKD -Low sugar diet Mild malnutrition -Start Nepro Anemia in CKD -Retacrit X1 -Give PRBC with HD tomorrow CKD MBD -Start Calcitriol -Start Cholecalciferol Anorexia with weight loss Slow transit constipation Abdominal pain -CT Abd/Pelvis Thank you kindly for the consultation. Case reviewed with Dr. Allen
[2022-01-10] MEDS ORDERED: MANNITOL 25% 12.5 GM/50 ML VIAL IV PRN (19:40)
[2022-01-10] MEDS ORDERED: NA CHLORIDE 0.9% 1,000 ML IV PRN (19:40)
[2022-01-10] MEDS ORDERED: ALBUMIN HUMAN 25% 50 ML IV SCH (20:00)
[2022-01-10] MEDS: NEPRO SHAKE 237 ML CAN PO SCH (22:58)
[2022-01-11 04:16] LABS: Absolute Lymphocytes (CBC) 0.8 K/uL (0.7-4.9); Hematocrit 26.8 % (36.0-45.0); Lymphocytes % 18.1 % (15.3-44.8); MPV 8.3 fL (7.6-11.3); RBC Red Blood Cell Count 3.21 M/uL (3.86-4.86)
[2022-01-11 04:28] LABS: Bilirubin Total 0.5 mg/dL (0.2-1.0); Magnesium 2.2 mg/dL (1.8-2.4); Phosphorus 4.7 mg/dL (2.5-4.9); Potassium 4.3 mmol/L (3.5-5.1); Protein, Total 7.4 g/dL (6.4-8.2); Uric Acid 3.8 mg/dL (2.6-6.0)
--- NOTE | 2022-01-11 08:44 | RAD REPORT ---
EXAM DESCRIPTION: CT - Abdomen Pelvis W/Wo Contrast - 01/11/2022 7:24 am CLINICAL HISTORY: Abdominal pain with anorexia and weight loss COMPARISON: [facility] Protocol dated 10/28/2021 TECHNIQUE: Axial non-contrast CT imaging was performed. Following this, biphasic contrast enhanced i maging through the abdomen and pelvis was performed with coronal and sagittal reformatted images. All CT scans are performed using dose optimization technique as appropriate and may include automated exposure control or mA/KV adjustment according to patient size. FINDINGS: Linear opacities and ground-glass opacities are seen in both lung bases, greater on the ri ght. Trace pleural effusions, greater on the right. Cholecystectomy. The liver and spleen are within normal limits. The pancreas and adrenal glands show no abnormal finding. Polycystic kidney disease is present bilaterally. No hydronephrosis. No bowel obstruction, free fluid or abscess. Mild atherosclerosis. Moderate stool is retained through out the colon. Moderate degenerative change in the lumbar spine. Mild anasarca. IMPRESSION: Mild fluid retention pattern is seen in the lung bases with anasarca also noted. Polycystic kidney disease.
[2022-01-11] MEDS: NEPRO SHAKE 237 ML CAN PO SCH (09:00)
[2022-01-11] MEDS ORDERED: MULTIVITAMINS,THERAPEUT 1 TAB PO SCH (09:00)
[2022-01-11] MEDS ORDERED: VITAMIN D 5,000 UNIT CAP PO SCH (09:00)
[2022-01-11] MEDS ORDERED: CALCITROL 0.25 MCG CAP PO SCH (09:00)
--- NOTE | 2022-01-11 09:03 | P.HP ---
Certification for Inpatient Patient admitted to: Observation With expected LOS: <2 Midnights Patient will require the following post-hospital care: None Practitioner: I am a practitioner with admitting privileges, knowledge of patient current condition, hospital course, and medical plan of care. Services: Services provided to patient in accordance with Admission requirements found in Title 42 Section 412.3 of the Code of Federal Regulations Patient History Date of Service: 01/11/22 Reason for admission: Dyspnea History of Present Illness: Patient is a 61-year-old female who comes into the hospital with shortness of breath. Patient's chest x-ray revealed volume overload. Patient was also hyperkalemic. Patient also with small bilateral pleural effusions. Patient was admitted from the emergency room under observation status to be dialyzed. Otherwise, patient was some mild abdominal discomfort. Pain is mainly the right upper quadrant. Otherwise, patient denies any new complaints. At this time, patient will be admitted to the hospital and we will do imaging studies to evaluate the right upper quadrant pain and we will get her dialyzed. If her work-up is negative anticipate discharge in the morning. Allergies heparin Allergy (Verified 07/28/21 14:27) Hives Home Medications: Nifedipine [Adalat cc] 90 mg PO BEDTIME 02/11/16 Estrogens,Conj [Premarin*] 0.9 mg PO DAILY 09/11/16 Isosorbide Mononitrate [Isosorbide Mononitrate ER] 60 mg PO DAILY 09/11/16 Rosuvastatin [Crestor*] 20 mg PO BEDTIME 09/11/16 Sevelamer Carbonate [Renvela*] 1 tab PO TIDWM 09/11/16 ramipriL [Altace*] 5 mg PO Q12HR #60 cap 09/13/16 Insulin Glargine,Hum.rec.anlog [Corie Novak] 40 units SQ DAILY 12/26/17 Calcitrol [Rocaltrol*] 0.5 mcg PO DAILY #30 cap 11/19/21 Cholecalciferol (Vitamin D3) [Vitamin D 5,000 IU Cap*] 5,000 unit PO DAILY #30 cap 11/19/21 Nepro Shake [Nepro*] 237 ml PO TID #30 can 11/19/21 Cholecalciferol (Vitamin D3) [Vitamin D 5,000 IU Cap*] 5,000 unit PO DAILY 01/10/22 Docusate [Colace Cap*] 100 mg PO DAILY 01/10/22 Doxazosin [Cardura*] 2 mg PO DAILY 01/10/22 Gabapentin 100 mg PO DAILY 01/10/22 Omeprazole [Prilosec] 40 mg PO DAILY 01/10/22 carvediloL [Coreg*] 25 mg PO BID 01/10/22 - Past Medical/Surgical History Has patient received pneumonia vaccine in the past: Yes Diabetic: Yes -: ESRD, hypertension, Diabetes-IDDM -: high cholesterol, -: Anemia chronic disease -: bilateral eye surgery, hysterectomy -: tubal ligation, C- Section, left arm fistula - Family History mom Medical History: Hypertension dad Medical History: Diabetes - Social History Smoking Status: Former smoker Alcohol use: No CD- Drugs: No Caffeine use: No Review of Systems 10-point ROS is otherwise unremarkable Physical Examination - Vital Signs Temperature: 97.9 F Blood Pressure: 158/74 Pulse: 78 Respirations: 16 Pulse Ox (%): 97 - Physical Exam General: Alert, In no apparent distress, Oriented x3 HEENT: Atraumatic, PERRLA, Mucous membr. moist/pink, EOMI, Sclerae nonicteric Neck: Supple, 2+ carotid pulse no bruit, No LAD, Without JVD or thyroid abnormality Respiratory: Diminished, Crackles/rales Cardiovascular: Regular rate/rhythm, Normal S1 S2, No murmurs Gastrointestinal: Normal bowel sounds, Soft and benign, Non-distended, No tenderness Musculoskeletal: No clubbing, No swelling, No tenderness Integumentary: No rashes Neurological: Normal gait, Normal speech, Normal strength at 5/5 x4 extr, Normal tone, Normal affect Lymphatics: No axilla or inguinal lymphadenopathy Assessment & Plan - Problems (Diagnosis) (1) Volume overload Current Visit: Yes Status: Acute (2) Hyperkalemia Current Visit: Yes Status: Acute (3) Right upper quadrant abdominal tenderness Current Visit: Yes Status: Acute (4) End-stage renal disease on hemodialysis Onset Date: 09/14/16 Current Visit: No Status: Chronic (5) Poorly-controlled hypertension Onset Date: 09/14/16 Current Visit: No Status: Chronic - Plan Plan: 1. Continue with aggressive diuresing 2. Hemodialysis per nephrology 3. CT of the abdomen and pelvis to evaluate right upper quadrant pain 4. Repeat electrolytes to check potassium level 5. Continue with strict blood pressure control; maintain strict blood pressure control to prevent worsening pulmonary edema 6. GI DVT prophylaxis Discharge Plan: Home Plan to discharge in: 24 Hours - Advance Directives Does patient have a Living Will: No Does patient have a Durable POA for Healthcare: No - Code Status/Comfort Care Code Status Assessed: Yes Code Status: Full Code Critical Care: No Time Spent Managing PTS Care (In Minutes): 35
[2022-01-11] MEDS ORDERED: carvediloL 25 MG TAB PO SCH (10:00)
[2022-01-11] MEDS ORDERED: ramipriL 5 MG CAP PO SCH (10:00)
[2022-01-11] MEDS ORDERED: HYDROCODONE/APAP 5/325 MG TAB PO ONE (10:45)
[2022-01-11] MEDS ORDERED: SEVELAMER CARBONATE 800 MG TABLET PO SCH (12:00)
[2022-01-11 13:26] VITALS: BP 145/70; TEMP 98
--- NOTE | 2022-01-11 20:22 | P.PN ---
Date of Service: 01/11/22 Vital Signs Temp Pulse Resp BP Pulse Ox 98.0 F 80 16 145/70 H 98 01/11/22 12:00 01/11/22 12:00 01/11/22 12:03 01/11/22 12:00 01/11/22 12:00 Lab Results (last 24 hrs) 01/10/22 07:05: ABO/Rh A POSITIVE, Solid Phase Ab Screen Negative, Crossmatch See Detail Assessment/ Plan: Nephrology No dyspnea No chest pain No acute events overnight Vitals, medications, blood work and imaging reviewed in the chart. General: In no apparent distress, Oriented x3, Cooperative HEENT: Atraumatic Neck: Supple Respiratory: Clear to auscultation bilaterally Cardiovascular: No edema, Regular rate/rhythm Gastrointestinal: Soft and benign, Non-distended Musculoskeletal: No clubbing, No contractures Integumentary: No rashes, No cyanosis Neurological: Normal speech Laboratory Data (last 24 hrs) 01/10/22 07:05: PT 13.3 H, INR 1.15 01/10/22 07:05: WBC 5.40, Hgb 8.2 L, Hct 25.1 L, Plt Count 198 01/10/22 07:05: Sodium 135 L, Potassium 6.2 H*, BUN 66 H, Creatinine 9.47 H*, Glucose 137 H, Magnesium 2.5 H, Total Bilirubin 0.6, AST 18, ALT 34, Alkaline Phosphatase 115 Imagings Data: EXAM DESCRIPTION: RAD - Chest Single View - 01/10/2022 6:12 am CLINICAL HISTORY: DYSPNEA COMPARISON: Portable 12/25/2021 TECHNIQUE: AP portable chest image was obtained 01/10/2022 6:12 am . FINDINGS: Lung volumes are slightly reduced compared to the prior study. New alveolar opacification has developed in the lower right lung field. There is a diffusely prominent interstitial pattern that is increased from comparison. Right pleural effusion is now present. Cardiomegaly is similar to comparison. Upper lobe vasculature is enlarged. There is peribronchial thickening seen. No pneumothorax. No acute bony abnormality seen. No acute aortic findings suspected. IMPRESSION: Heart, vasculature and lung markings support CHF/volume overload. Focal airspace opacification and pleural effusion on the right may be an asymmetric presentation of CHF. A superimposed or concurrent right lung base pneumonia should be considered and correlated with clinical and lab findings. Conclusions/Impression: ESRD -Acute HD today Hyperkalemia -Acute HD today HTN with CKD/ CHF -Hold antihypertensives at this time Diastolic CHF, A/C -HD with UF DM II with CKD -Low sugar diet Mild malnutrition -Continue Nepro Anemia in CKD -Retacrit prn -PRBC with HD today CKD MBD -Continue Calcitriol -Continue Cholecalciferol Anorexia with weight loss Slow transit constipation Abdominal pain -CT Abd/Pelvis reviewed EXAM DESCRIPTION: CT - Abdomen Pelvis W/Wo Contrast - 01/11/2022 7:24 am CLINICAL HISTORY: Abdominal pain with anorexia and weight loss COMPARISON: [facility] Protocol dated 10/28/2021 TECHNIQUE: Axial non-contrast CT imaging was performed. Following this, biphasic contrast enhanced imaging through the abdomen and pelvis was performed with coronal and sagittal reformatted images. All CT scans are performed using dose optimization technique as appropriate and may include automated exposure control or mA/KV adjustment according to patient size. FINDINGS: Linear opacities and ground-glass opacities are seen in both lung bases, greater on the right. Trace pleural effusions, greater on the right. Cholecystectomy. The liver and spleen are within normal limits. The pancreas and adrenal glands show no abnormal finding. Polycystic kidney disease is present bilaterally. No hydronephrosis. No bowel obstruction, free fluid or abscess. Mild atherosclerosis. Moderate stool is retained throughout the colon. Moderate degenerative change in the lumbar spine. Mild anasarca. IMPRESSION: Mild fluid retention pattern is seen in the lung bases with anasarca also noted. Polycystic kidney disease.
[2022-01-11] MEDS ORDERED: NIFEDIPINE XL 90 MG TABLET PO SCH (21:00)
== END 2022-01-11 17:20 | disposition home or self-care (01) ==
LOC: ER 05:38 → ERHOLD 10:25 → 2ND 11:29
PROVIDERS: ADMIT Hospitalist; ATTEND Hospitalist
PROC: 5A1D70Z Performance of Urinary Filtration, Intermittent, Less than 6 Hours Per Day (ICD-10-PCS; principal; 2022-01-10)
PROC: 5A1D70Z Performance of Urinary Filtration, Intermittent, Less than 6 Hours Per Day (ICD-10-PCS; 2022-01-11)
DX: E87.5 Hyperkalemia (principal); I12.0 Hypertensive chronic kidney disease with stage 5 chronic kidney disease or end stage renal disease; E11.22 Type 2 diabetes mellitus with diabetic chronic kidney disease; N18.6 End stage renal disease; R10.811 Right upper quadrant abdominal tenderness; E44.1 Mild protein-calorie malnutrition; Z68.33 Body mass index [BMI] 33.0-33.9, adult; D63.1 Anemia in chronic kidney disease; Z79.4 Long term (current) use of insulin; Z99.2 Dependence on renal dialysis; Z20.822 Contact with and (suspected) exposure to COVID-19
CPT/HCPCS: 36430; 93005; 85025 ×2; 80048; 36415; 86900; 83735 ×2; 86850; 84100; 85610; 86901; 82947 ×4; 80076; 84550; 84484; 80053; 83880 ×2; 74178; 71045; 99285; 90935; U0003; Q9967; Q5106; P9016; G0257; G0378 ×3

== ENCOUNTER 2022-02-06 22:44 | Inpatient (IN) | payer OTHER ==
--- OUTSIDE RECORDS SUMMARY | 2022-02-06 22:49 | XMS REPORT | Continuity of Care Document ---
:1960 Author Organization [facility] t Address [address] [place] [address] Care Team Providers Name Role Phone Pcp, [...] Number Effective Date Expiration Date S vignesh [facility] MEDICARE [id number] COMPLETE (MEDICARE REPLACEMENT HMO) SANDRA/MAYTE [id number] 2021 MEDICARE ADVANTAGE 00:00:00 MEDICARE A-[place]: [id number] 2009 [employer] - 00:00:00 [facility]Q MEDICARE B-[place]: [id number] 2007 [employer] 00:00:00 Problems Condition Condition Condition Status Onset Resolution Last Treating Co mments Source Name Details Category Date Date Treatment Clinician Date At risk At Risk Problem Active [place] for [place] for Falls 3-10 da [facility]: [facility] Body mass Body Mass Problem Active [place] index 30+ Index 30+ 2-02 da - obesity - Obesity 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 al Health Outreac h Program Umbilical Umbilical Problem Active [place] hernia Hernia 2-02 da 00:00: [facility] 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: [place] with ESRD with ESRD 00 Medi jalil (end-stage (end-stage Br anch renal renal disease) disease) Dyslipidem Dyslipidem Disease Active U nivers ia ia 11-14 ity of 00:00: [place] 00 Medical Branch Essential Essential Disease Active Uni vers hypertensi hypertensi 11-14 it y of on on 00:00: [place] 00 Medical Branch Hyperlipid Hyperlipid Problem Active [...] ve renal ve Renal da failure [facility] Chronic Chronic Problem Active [place] kidney Kidney da disease Disease [facility] Heart Heart Problem Active [place] murmur Murmur da [facility] Hemodialys Hemodialys Problem Active M [facility] is is [facility] Multiple Multiple Problem Active [place] complicati Complicati da ons due to ons Due to Ep [facility] type 2 Type 2 al diabetes Diabetes Health mellitus Mellitus Outrea c h Program Diabetes Diabetes Problem Active [place] mellitus Mellitus [facility] End stage End Stage Problem Active [place] renal Renal da failure on Failure on [facility] dialysis Dialysis in Health Outreac h Program End-stage End-stage Problem Active [place] renal Renal da disease Disease [facility] Allergies, Adverse Reactions, Alerts Allergy Allergy Status Severity Reaction(s) Onset Inactive Treating Comm ents Source Name Type Date Date Clinician Ceftriax Propensi Active Anaphylaxis 2019-0 U nivers one ty to 05-07 ity of adverse 00:00: [place] reaction 00 Medical s Branch CEFTRIAX DRUG Active High Anaphylaxis Uni vers ONE INGREDI 05-07 ity of 00:00: [place] 00 Medical Branch HEPARIN DRUG Active Rash Univers INGREDI 11-14 ity of 00:00: [place] 00 Medical Branch Heparin Propensi Active Other - See Sweats Un payal ty to comments 11-14 ity of adverse 00:00: [place] reaction 00 Medical s Branch Heparin Allergy Active [place] to 4-07 da substanc 00:00: [facility] 00 in [facility] Outre[facility] Program Social History Social Habit Start Date Stop Date Quantity Comments Source Exposure to Not sure [facility] SARS-CoV-2 (event) Medica l Branch Tobacco use and 2017-11-14 2017-11-14 Never used [facility] exposure 00:00:00 00:00:00 Medical Branch Sex Ass[birth year] At [birth year] [facility] 00:00:00 00:00:00 Medical Branch Smoking Status Start Date Stop Date Source Never Smoker [facility] Outreach Program Medications Ordered Filled Start Stop Current Ordering Indication Dosage Frequency Signature Comments Components Source Medication Medication Date Date Medication? Clinician (SIG) Name Name RADHA Yes [id number] INJECT Unive rs SOLOSTAR 6 40-50 ity of U-300 00:00: UNITS [place] INSULIN 300 00 UNDER THE Med ical unit/mL SKIN Branch (1.5 mL) DAILY. InPn ED Yes [id number] INJECT Unive rs SOLOSTAR 6 40-50 ity of U-300 00:00: UNITS [place] INSULIN 300 00 UNDER THE Med ical unit/mL SKIN Branch (1.5 mL) DAILY. InPn JENNYO Yes [id number] INJECT Unive rs SOLOSTAR 6 40-50 ity [...] mouth ity of Vitamin D3, 14:35: daily. Nelsona s (VITAMIN 39 Medical D3) 5,000 Branch unit tablet carvedilol Yes 50mg Take 50 mg U nivers 25 mg 1-09 by mouth 2 ity of tablet 14:35: (two) [place] 39 times Medical daily with Branch meals. NIFEdipine Yes 90mg Take 90 mg U nivers XL 90 mg 24 1-09 by mouth ity of hr tablet 14:35: daily. [place] 39 Medical Branch travoprost Yes 1[drp] Place [...] times Medical daily with Branch meals. NIFEdipine 0 Yes 90mg Take 90 mg U nivers XL 90 mg 24 1-09 by mouth ity of hr tablet 14:35: daily. [place] [address] Medical Branch travoprost Yes 1[drp] Place 1 [...] [place] 39 breakfast. Medical Branch conjugated 0 Yes .9mg Take 0.9 Uni vers estrogens [...] mouth 2 ity of tablet 14:35: (two) [place] 39 times Medical daily with Branch meals. NIFEdipine Yes 90mg Take 90 mg U nivers XL 90 mg 24 1-09 by mouth ity of hr tablet 14:35: daily. [place] [address] Medical Branch travoprost Yes 1[drp] Place 1 Un payal (TRAVATAN - Drop in ity of Z) 0.004 % 14:35: left eye [place] as ophthalmic 39 at [facility] solution bedtime. Branch sevelamer Yes 1600mg Take 1,600 Univers 800 mg 1-09 mg by ity of tablet 14:35: mouth 3 [place] 39 (three) Medical times Branch daily with meals. rosuvastati Yes 20mg Take 20 mg Univers n (CRESTOR) 09 by mouth ity of 20 mg 14:35: at [place] tablet 39 bedtime. Medical Branch esomeprazol Yes 40mg Take 40 mg Univers e 40 mg 11-14 by mouth ity of capsule 14:35: daily with [facility] s 39 breakfast. Medical Branch conjugated conjugated [...] mg by oral Outreac route. h Program Toujeo Toujeo No Toujeo [place] SoloStar SoloStar [...] Health 11/07" 11/07" 11/07" Outreac h Program calcitriol calcitriol [...] pen s pen subcutaneo Program us pen isosorbide isosorbide No isosorbide [place] mononitrate [...] MOUTH 4 Outreac TIMES h DAILY Program Toed Font[place]ot No Touriccardo [place] SoloStar SoloStar SoloStar da U-300 U-300 [...] hours as Epi scop needed needed needed in Health Outreac h Program carvedilol carvedilol No [...] AT MOUTH BEDTIME BEDTIME EVERYDAY AT BEDTIME Immunizations Ordered Immunization Filled Immunization Date Status Commen ts Source Name Name influenza, influenza, 2021-08-06 Completed [place] injectable, injectable, 00:00:00 [facility] quadrivalent quadrivalent Outreach P jluianne COVID-19 vaccine, COVID-19 vaccine, 2021-01-10 Completed [place] vector-nr, rS-Ad26, vector-nr, rS-Ad26, 00:00:00 [facility] PF, 0.5 mL ([employer]) PF, 0.5 mL ([employer]) Outreach Program pneumococcal pneumococcal 2020-11-23 Completed [place] polysaccharide PPV23 polysaccharide PPV23 00:00:00 [facility] am influenza, influenza, 2020-08-06 Completed [place] injectable, injectable, 00:00:00 [facility] quadrivalent quadrivalent Outreach P rogram influenza, influenza, 2019-08-06 Completed [place] injectable, injectable, 00:00:00 [facility] quadrivalent quadrivalent Outreach P solitarioram Tdap Tdap 2016-11-06 Completed [place] 00:00:00 [facility] am Influenza Virus 2015-08-03 Completed Universit y of Vaccine 00:00:00 [facility] Influenza Virus 2015-08-03 Completed Universit y of Vaccine 00:00:00 [facility] Influenza Virus 2015-08-03 Completed Universit y of Vaccine 00:00:00 [facility] Influenza Virus 2014-07-30 Completed Universit y of Vaccine 00:00:00 [facility] Influenza Virus 2014-07-30 Completed Universit y of Vaccine 00:00:00 [facility] Influenza Virus 2014-07-30 Completed Universit y of Vaccine 00:00:00 [facility] Hep B, Adol or Pedi 2013-12-11 Completed Unive rsity of Dosage 00:00:00 [facility] Hep B, Adol or Pedi 2013-12-11 Completed Unive rsity of Dosage 00:00:00 [facility] Hep B, Adol or Pedi 2013-12-11 Completed Unive rsity of Dosage 00:00:00 [facility] Influenza Virus 2013-07-19 Completed Universit y of Vaccine 00:00:00 [facility] Influenza Virus 2013-07-19 Completed Universit y of Vaccine 00:00:00 [facility] Influenza Virus 2013-07-19 Completed Universit y of Vaccine 00:00:00 [facility] Influenza Virus 2012-07-09 Completed Universit y of Vaccine 00:00:00 [facility] Influenza Virus 2012-07-09 Completed Universit y of Vaccine 00:00:00 [facility] Influenza Virus 2012-07-09 Completed Universit y of Vaccine 00:00:00 [facility] Influenza Virus 2011-07-29 Completed Universit y of Vaccine 00:00:00 [facility] Influenza Virus 2011-07-29 Completed Universit y of Vaccine 00:00:00 [facility] Influenza Virus 2011-07-29 Completed Universit y of Vaccine 00:00:00 [facility] Pneumococcal 13 2011-06-22 Completed Universit y of Conjugate, PCV13 00:00:00 [facility] dical (Prevnar 13) Branch PPD (TB) 2011-06-22 Completed University of 00:00:00 [facility] Pneumococcal 13 2011-06-22 Completed Universit y of Conjugate, PCV13 00:00:00 [facility] dical (Prevnar 13) Branch PPD (TB) 2011-06-22 Completed University of 00:00:00 [facility] Pneumococcal 13 2011-06-22 Completed Universit y of Conjugate, PCV13 00:00:00 [facility] dical (Prevnar 13) Branch PPD (TB) 2011-06-22 Completed University of 00:00:00 [place] [facility] Vital Signs Vital Name Observation Time Observation Value Comments Source BP Diastolic 2021-12-14 00:00:00 70 mm[Hg] [place] [facility] Height 2021-12-14 00:00:00 63 [in_i] [place] [facility] BMI (Body Mass 2021-12-14 00:00:00 34.5 kg/m2 [place] 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 gluer and slicer [facility] Index) Health Outreach Program BP Systolic 2021-12-14 00:00:00 130 mm[Hg] [place] [facility] Body Weight 2021-12-14 00:00:00 3120 [oz_av] [place] [facility] BP Diastolic 2021-12-02 00:00:00 64 mm[Hg] [place] [facility] Height 2021-12-02 00:00:00 63 [in_i] [place] [facility] BMI (Body Mass 2021-12-02 00:00:00 35.1 kg/m2 [place] hand gl[facility] and slic[facility] Index) Health Outreach Program BP Systolic 2021-12-02 00:00:00 113 mm[Hg] [place] [facility] Body Weight 2021-12-02 00:00:00 198 [lb_av] [place] [facility] BP Diastolic 2021-11-15 00:00:00 67 mm[Hg] [place] [facility] Height 2021-11-15 00:00:00 63 [in_i] [place] [facility] BMI (Body Mass 2021-11-15 00:00:00 35.2 kg/m2 [place] hand gl[facility] and slic[facility] Index) [facility] Outreach Program BP Systolic 2021-11-15 00:00:00 135 mm[Hg] [place] [facility] Body Weight 2021-11-15 00:00:00 198.8 [lb_av] [place] [facility] BP Diastolic 2021-10-27 00:00:00 64 mm[Hg] [place] [facility] Height 2021-10-27 00:00:00 63 [in_i] [place] [facility] BMI (Body Mass 2021-10-27 00:00:00 36.1 kg/m2 [place] [facility] gl[facility] [employer] Index) Health Outreach Program BP Systolic 2021-10-27 00:00:00 136 mm[Hg] [place] [facility] Body Weight 2021-10-27 00:00:00 3264 [oz_av] [place] [facility] Systolic blood 2021-09-13 17:06:00 157 mm[Hg] [facility] pressure Medical Branch Diastolic blood 2021-09-13 17:06:00 80 mm[Hg] [facility] pressure [facility] Branch Heart rate 2021-09-13 17:04:00 63 /min [facility] Body weight 2021-09-13 17:04:00 90.266 kg [facility] Oxygen saturation 2021-09-13 17:04:00 96 /min [facility] in Arterial blood Medical Br anch by Pulse oximetry BP Diastolic 2021-04-29 00:00:00 70 mm[Hg] [place] [facility] Height 2021-04-29 00:00:00 63 [in_i] [place] [facility] BMI (Body Mass 2021-04-29 00:00:00 36.7 kg/[facility]2 [facility] BP Systolic 2021-04-29 00:00:00 130 mm[Hg] [place] [facility] Body Weight 2021-04-29 00:00:00 207 [lb_av] [place] [facility] BP Diastolic 2020-12-31 00:00:00 68 mm[Hg] [place] [facility] Height 2020-12-31 00:00:00 63 [in_i] [place] [facility] BMI (Body Mass 2020-12-31 00:00:00 37.6 kg/m2 [facility] BP Systolic 2020-12-31 00:00:00 136 mm[Hg] [place] [facility] Body Weight 2020-12-31 00:00:00 212 [lb_av] [place] [facility] BP Diastolic 2020-12-08 00:00:00 72 mm[Hg] [place] [facility] Height 2020-12-08 00:00:00 63 [in_i] [place] [facility] BMI (Body Mass 2020-12-08 00:00:00 37 kg/m2 [place] [facility] slic[facility] Index) [facility] Outreach Program BP Systolic 2020-12-08 00:00:00 144 mm[Hg] [place] [facility] Body Weight 2020-12-08 00:00:00 3344 [oz_av] [place] [facility] BP Diastolic 2019-09-17 00:00:00 80 mm[Hg] [place] [facility] Height 2019-09-17 00:00:00 63 [in_i] [place] [facility] BMI (Body Mass 2019-09-17 00:00:00 35.3 kg/m2 [place] hand gl[facility] [employer] Index) [facility] Outreach Program BP Systolic 2019-09-17 00:00:00 150 mm[Hg] [place] [facility] Body Weight 2019-09-17 00:00:00 199 [lb_av] [place] [facility] BP Diastolic 2019-09-10 00:00:00 76 mm[Hg] [place] [facility] Height 2019-09-10 00:00:00 63 [in_i] [place] [facility] BMI (Body Mass 2019-09-10 00:00:00 35.6 kg/m2 [place] hand gluer and slicer [facility] Index) [facility] Outreach Program BP Systolic 2019-09-10 00:00:00 144 mm[Hg] [place] [facility] Body Weight 2019-09-10 00:00:00 200.9 [lb_av] [place] [facility] Procedures Procedure Date / Time Performing Clinician Source Performed TRANSTHORACIC ECHO (TTE) 2021-09-21 19:32:00 Jose Wilde Uni [facility] COMPLETE Medical Branch CONSENT/REFUSAL FOR 2021-09-21 19:01:46 Doctor Unassigned, [facility] DIAGNOSIS AND TREATMENT [place] [facility] ASSIGNMENT OF BENEFITS 2021-09-21 19:01:15 [facility] [place] [facility] HB ECG ROUTINE & RHYTHM 2021-09-13 17:08:28 Jose Wilde [facility] Medical Branch EXTERNAL PROVIDER - ADC 2021-08-12 05:01:00 Doctor Unassigned, U [facility] REFERRAL [place] [facility] Cholecystectomy 2021-08-06 00:00:00 [place] [facility] MR, 2020-12-31 00:00:00 [facility] Me dical cholangiopancreatogram, w/ Group contrast unlisted imaging order 2020-12-15 00:00:00 [facility] MAMMO, screening, digital, 2020-12-08 00:00:00 [place] [facility] bilateral [facility] CT, abdomen + pelvis, w/ 2020-12-08 00:00:00 [place] [facility] contrast Health [facility]reach Program MAMMO, screening, digital, 2019-09-10 00:00:00 M [place] [facility] DEXA, axial skeleton 2019-09-10 00:00:00 [place] [facility] Colonoscopy 2016-03-15 00:00:00 [place] [facility] Total Hysterectomy 2009-11-06 00:00:00 [place] [facility] Section 1988-11-06 00:00:00 [place] [facility] Graft of Skin to Skin [facility]ilateral [facility] Plan of Care Planned Activity Planned Date Details Comments Source Diagnostic Test 2021-12-14 HbA1c (hemoglobin [place] [facility] Pending 00:00:00 A1c), blood [code Health Out reach = HbA1c Program (hemoglobin A1c), blood] Diagnostic Test 2021-12-14 CBC w/ auto diff [place] [facility] Pending 00:00:00 [code = CBC w/ Health Outrea ch auto diff] Program Diagnostic Test 2021-12-14 lipid panel, serum [place] hand gluer and slicer [facility] Pending 00:00:00 [code = lipid Health Outreac h panel, serum] Program Diagnostic Test 2021-12-14 TSH + free T4, [place] [facility] Pending 00:00:00 serum [code = TSH Health Out reach + free T4, serum] Program Diagnostic Test 2021-12-14 hepatic function [place] [facility] Pending 00:00:00 panel, serum [code Health Ou [place] = hepatic function Program panel, serum] Encounters Start End Encounter Admission Attending Care Care Encounter Source Date/Time Date/Time Type Type Clinicians Facility Department ID 2021-12-14 2021-12-14 Outpatient QASIM [place]ENCIA [place] [id number] [place] 06:44:00 06:44:00 _ANN 0208 [facility] 2021-12-14 2021-12-14 Olya Calle [facility] [place] - 8 [place] 00:00:00 00:00:00 Wiley Platt CERTIFIER: 1700 [facility] [place], [place], [place] 3 Outreac [address] h , Ph. Program 2021-12-10 2021-12-10 Outpatient THOR_OLYA [place] [id number] [place] 02:13:00 02:13:00 _ANN 0204 [facility] 2021-12-02 2021-12-02 Outpatient SHIMSTEVEN_OLYA [place] [id number] [place] 05:37:00 05:37:00 _ANN 0127 [facility] 2021-12-02 2021-12-02 Outpatient SHIMSTEVEN_[place]YA [place] [id number] [place] 05:37:00 05:37:00 _ANN 0201 [facility] 2021-12-02 2021-12-02 Maverick Nelson [facility] - [id number] [place] 00:00:00 00:00:00 Wiley Breen MD: 1700 [facility] [place], [place], [place] Outreac [address] h , Ph. 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 2021-10-27 2021-10-27 Outpatient THOR_OLYA VALENCIA [facility] 68 [id number] [place] 03:20:00 03:20:00 _ANN 1222 [facility] 2021-10-27 2021-10-27 Jennifer A [facility] [place] - [id number] [place] 00:00:00 00:00:00 Wiley Platt CERTIFIER: 1700 [facility] [place], [place] 3 Outre [address] h , Ph. Program 2021-09-21 2021-09-21 Outpatient Arlene WILDE [facility] [id number] Univers 13:00:00 23:59:00 JOSE mittal [facility] 2021-09-21 2021-09-21 [facility] [id number] Univers 13:00:00 23:59:00 Encounter Jose WISE [id number] itreed [facility] [id number] [facility] [id number] [address] 2021-09-13 2021-09-13 Outpatient Arlene WILDE [facility] [id number] Univers 11:00:00 11:27:51 JOSE mittal [facility] 2021-09-13 2021-09-13 [facility] [id number] Univers 10:48:07 11:27:51 Visit Jose WISE [id number] ity of [place] [id number] [place] [id number] Ia dical NAL 059 [facility] 2021-08-12 2021-08-12 Orders Doctor SAL [id number] [facility] [place] [facility] 00:00:00 00:00:00 Only Unassigned, MCKIN[place] [id number] [facility] [id number] Nelson as [id number] [facility] 009 Iliamna 2021-08-10 2021-08-10 Outpatient [facility] [id number] [place] 00:00:00 00:00:00 352 Method i 2021-07-23 2021-07-23 Outpatient TRISTON CALLAHAN [facility] 021 [id number] [place] 00:00:00 00:00:00 793 Method i 2021-07-22 2021-07-22 Outpatient MELÉNDEZ [facility] [id number] [place] 00:00:00 00:00:00 ERIC 502 Method i 2021-07-22 2021-07-22 Outpatient [facility] [id number] [place] 00:00:00 00:00:00 094 Method i 2021-07-22 2021-07-22 Outpatient TRISTON CALLAHAN [facility] [id number] [place] 00:00:00 00:00:00 660 Method i 2021-06-17 2021-06-17 Outpatient MELÉNDEZ [facility] [id number] [place] 00:00:00 00:00:00 ERIC 976 Method i 2021-06-03 2021-06-05 Outpatient DENI [facility] 974 [id number] [place] 00:00:00 00:00:00 MARISA 500 Method i 2021-05-28 2021-05-28 Outpatient JOANA [facility] 021 [id number] [place] 00:00:00 00:00:00 ANTONIO 275 Method i 2021-05-25 2021-05-25 Outpatient JOANA [facility] [id number] [place] 00:00:00 00:00:00 ANTONIO 115 Method i 2021-04-29 2021-04-29 Outpatient IHDE_G MMG MMG [id number] [place] 03:46:00 03:46:00 0624 da [facility] Group 2021-04-29 2021-04-29 Outpatient IHDE_G MMG MMG [id number] [place] 03:46:00 03:46:00 06 da Medical Group 2021-04-29 2021-04-29 Yadiel MMG [place] - [id number] M atagor 00:00:00 00:00:00 Vic Hutchinson MD: Medical Medica [address], [place] [address] , Ph. [phone] 2021-04-01 2021-04-01 Outpatient [facility] [id number] [place] 00:00:00 00:00:[address] 2021-03-15 2021-03-15 Outpatient OPPERMANN, [facility] 021 [id number] [place] 00:00:00 00:00:00 ANTONIO [address] 2021-03-11 2021-03-11 Outpatient OPPERMANN, [facility] [id number] [id number] [place] 00:00:00 00:00:00 ANTONIO [address] 2021-01-19 2021-01-19 Outpatient OPPERMANN, [facility] 2100 [id number] [place] 00:00:00 00:00:00 ANTONIO [address] 2021-01-03 2021-01-03 Outpatient IHDE_G MMG MMG [id number] [place] 12:42:00 12:42:00 0228 Medical Group 2021-01-03 2021-01-03 Outpatient IHDE_G MMG MMG [id number] [place] 12:42:00 12:42:00 0623 Medical Group 2020-12-31 2020-12-31 Outpatient IHDE_G MMG MMG [id number] [place] 12:21:00 12:21:00 0225 Medical Group 2020-12-31 2020-12-31 Outpatient IHDE_G MMG MMG [id number] [place] 12:21:00 12:21:00 0226 Medical Group 2020-12-31 2020-12-31 Yadiel MMG [place] - [id number] M at[place]or 00:00:00 00:00:00 Vic Hutchinson MD: Medical Medica l [address] [facility] [address], [place] [address] , Ph. [phone] 2020-12-15 2020-12-15 [facility] [id number] [place] 05:36:00 05:36:00 0209 [facility] 2020-12-15 2020-12-15 Yadiel [facility] [place] - [id number] M atagor 00:00:00 00:00:00 Vic Hutchinson MD: Medical Medica l [address] [facility] [address], [place] [address] , Ph. [phone] 2020-12-09 2020-12-09 Outpatient TYRONESTEVEN_OLYA [facility] [id number] [place] 10:13:00 10:13:00 _ANN 1210 [facility] 2020-12-09 2020-12-09 Outpatient SHIMEK_OLYA [facility] 68 [id number] [place] 10:13:00 10:13:00 _ANN 0209 [facility] 2020-12-09 2020-12-09 Outpatient SHIMEK_OLYA [facility] 68 [id number] [place] 10:13:00 10:13:00 _ANN 1119 [facility] 2020-12-08 2020-12-08 Outpatient SHIMEK_OLYA [facility] [id number] [place] 12:33:00 12:33:00 _ANN 0202 [facility] 2020-12-08 2020-12-08 O[address] Calle [place] - [id number] [place] 00:00:00 00:00:00 Wiley Platt CERTIFIER: 1700 [facility] - ANNIE [place], [place], [place] [address] [place] [id number] h , Ph. Program 2020-03-25 2020-03-25 Outpatient SHIMEK_OLYA VALENCIA 6[address] [place] 04:35:00 04:35:00 _SONA 0914 [facility] 2019-09-17 2019-09-17 Olya VALENCIA [place] - [id number] [place] 00:00:00 00:00:00 Shimek [place] CERTIFIER: [address] [facility] [address], [address] [address] Progr am , Ph. 2019-09-10 2019-09-10 Olya VALENCIA [place] - [id number] 5 [place] 00:00:00 00:00:00 Shimek, [place] CERTIFIER: [address] [facility] [address], [address] [address] Progr am , Ph. 2016-09-27 2016-09-27 Outpatient Raju_P [facility] [id number] [place] 03:16:00 03:16:00 0205 [facility] 2016-09-27 2016-09-27 Outpatient Raju_P [facility] [id number] [place] 03:16:00 03:16:00 0609 [facility] Results Test Description Test Time Test Comments Results Result Comments Source cardiovascular assessment panel, serum 2022-01-07 00:00:00 Test Item Value Reference Range Interpretation Comme nts Interpretation and review of laboratory results (test code = 82994- 1) note Report (test code = 33596-6) . [facility] Programdiabetes patient [id number] 00:00:00 Test Item Value Reference Range Interpretation Comments pdf (test code = pdf) not applicable [facility] RNA [Presence] in Respiratory specimen by LAKHWINDER with probe [id number] 01:09:07 Test Item Value Reference Range Interpretation Comments SARS-CoV-2 (COVID-19) RNA Not detected Not-Detected [Presence] in Respiratory specimen by LAKHWINDER with probe detection (test code = 06204-5) Whether patient is employed in a healthcare setting (test code = 58779-2) Whether the patient has symptoms related to condition of interest (test code = 98130-0) Patient was hospitalized because of this condition (test code = 81970-7) Whether the patient was admitted to intensive care unit (ICU) for condition of interest (test code = 08833-2) Whether patient resides in a congregate care setting (test code = 75242-1) SARS-CoV-2 (COVID-19) RNA [Presence] in Respiratory specimen by LAKHWINDER with probe [id number] 13:28:28 Test Item Value Reference Range Interpretation Comments SARS-CoV-2 (COVID-19) RNA Not detected Not-Detected [Presence] in Respiratory specimen by LAKHWINDER with probe detection (test code = 50055-2) Whether patient is employed in a healthcare setting (test code = 54948-5) Whether the patient has symptoms related to condition of interest (test code = 06455-2) Patient was hospitalized because of this condition (test code = 48979-8) Whether the patient was admitted to intensive care unit (ICU) for condition of interest (test code = 76621-1) Whether patient resides in a congregate care setting (test code = 64883-0) SARS-CoV-2 (COVID-19) RNA [Presence] in Respiratory specimen by LAKHWINDER with probe [id number] 17:27:41 Test Item Value Reference Range Interpretation Comments SARS-CoV-2 (COVID-19) RNA Not detected Not-Detected [Presence] in Respiratory specimen by LAKHWINDER with probe detection (test code = 12561-5) Whether patient is employed in a healthcare setting (test code = 05931-9) Whether the patient has symptoms related to condition of interest (test code = 51041-8) Patient was hospitalized because of this condition (test code = 19445-6) Whether the patient was admitted to intensive care unit (ICU) for condition of interest (test code = 48585-6) Whether patient resides in a congregate care setting (test code = 59687-7) Free T4 and TSH panel - Serum or [id number] 00:00:00 Test Item Value Reference Range Interpretation Comments Thyrotropin [Units/volume] in 0.968 uIU/mL 0.450-4.500 Serum or Plasma by Detection limit <= 0.005 mIU/L (test code = 89348-8) Thyroxine (T4) free 1.12 NG/dL 0.82-1.77 [Mass/volume] in Serum or Plasma (test code = 3024-7) [facility] W Auto Differential panel - Blood [...] = 706-2) immature cells (test code = dentures lab technician immature cells) Neutrophils [#/volume] in Blood [...] Blood by Automated count (test code = 39579-5) Nucleated erythrocytes/100 dentures lab technician leukocytes [Ratio] in Blood by Automated count (test code = 70818-2) Morphology [interpretation] in dentures lab technician Blood Narrative (test code = 85866-7) 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 1999 panel - Serum or [id number] 00:00:00 Test Item Value Reference Range Interpretation [...] Serum or Plasma (test code = 1742-6) [facility]/Hemoglobin.total in [id number] 00:00:00 Test Item Value Reference Range Interpretation Comments Hemoglobin A1c/Hemoglobin.total in 8.4 % 4.8-5.6 H Blood (test code = 4548-4) Glucose mean value [Mass/volume] in 194 mg/dL Blood Estimated from glycated hemoglobin (test code = 48788-4) [facility], [id number] 00:00:00 Test Item Value Reference Range Interpretation Comments interpretation (test code = note interpretation) pdf image (test code = pdf image) . [facility] [id number] 00:00:00 Test Item Value Reference Range Interpretation Comments pdf image (test code = pdf not applicable image) [facility] TSH [facility] - Serum or [id number] 00:00:00 Test Item Value Reference Range Interpretation Comments Thyrotropin [Units/volume] in 0.968 uIU/mL 0.450-4.500 Serum or Plasma by Detection limit <= 0.005 mIU/L (test code = 31067-5) Thyroxine (T4) free 1.12 NG/dL 0.82-1.77 [Mass/volume] in Serum or Plasma (test code = 3024-7) [facility] W Auto Differential panel - Blood [...] = 706-2) immature cells (test code = dentures lab technician immature cells) Neutrophils [#/volume] in Blood [...] Blood by Automated count (test code = 63574-1) Nucleated erythrocytes/100 dentures lab technician leukocytes [Ratio] in Blood by Automated count (test code = 64113-6) Morphology [interpretation] in dentures lab technician Blood Narrative (test code = 02678-7) 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 1999 panel - Serum or [id number] 00:00:00 Test Item Value Reference Range Interpretation [...] Serum or Plasma (test code = 1742-6) [facility] A1[facility]/Hemoglobin.total in [id number] 00:00:00 Test Item Value Reference Range Interpretation Comments Hemoglobin A1c/Hemoglobin.total in 8.4 % 4.8-5.6 H Blood (test code = 4548-4) Glucose mean value [Mass/volume] in 194 mg/dL Blood Estimated from glycated hemoglobin (test code = 23975-6) [facility], [id number] 00:00:00 Test Item Value Reference Range Interpretation Comments interpretation (test code = note interpretation) pdf image (test code = pdf image) . [facility] [id number] 00:00:00 Test Item Value Reference Range Interpretation Comments pdf image (test code = pdf not applicable image) [facility]
[2022-02-07 00:20] LABS: Protime INR 1.18
[2022-02-07 00:22] LABS: Hematocrit 27.6 % (36.0-45.0); Lymphocytes % 8.5 % (15.3-44.8); MPV 8.5 fL (7.6-11.3); RBC Red Blood Cell Count 3.26 M/uL (3.86-4.86)
[2022-02-07 01:22] LABS: Albumin 3.5 g/dL (3.4-5.0); Bilirubin Direct 0.2 mg/dL (0-0.2); Bilirubin Total 0.6 mg/dL (0.2-1.0); Magnesium 2.2 mg/dL (1.8-2.4); Potassium 4.4 mmol/L (3.5-5.1); Protein, Total 8.5 g/dL (6.4-8.2)
[2022-02-07 01:23] LABS: Troponin High Sensitivity 527.6 pg/mL (<58.9)
--- NOTE | 2022-02-07 01:37 | RAD REPORT ---
EXAM DESCRIPTION: RAD - Chest Single View - 02/07/2022 12:39 am CLINICAL HISTORY: SOB Chest pain. COMPARISON: Chest Single View dated 01/10/2022; Chest Single View dated 12/25/2021; Chest Single View d ated 11/18/2021; Chest Single View dated 10/28/2021 FINDINGS: Portable technique limits examination quality. Extensive bilateral pulmonary opacities are present which may represent pulmonary edema or pneumonia. The heart is mildly enlarged in size. Prominent degenerative change involves both shoulders.
[2022-02-07 01:52] LABS: SARS-COV-2 RT PCR NEGATIVE (NEGATIVE)
--- NOTE | 2022-02-07 02:57 | ER ---
Nurse's Notes [facility] Name: Tulio Smith Age: 61 yrs Sex: Female : 1960 Arrival Date: 02/06/2022 Time: 22:48 Bed 23 Private MD: Diagnosis: Acute on chronic combined systolic (congestive) and diastolic (congestive) heart failure;End Stage Renal Disease on Hemodialysis Presentation: 02/06 23:40 Chief complaint: Patient states: shortness of breath starting Monday. current dialysis lg3 pt. dialysis done Monday, Monday, and Monday of this week. states that she feels like this when they do not pull enough fluid off during dialysis treatments. Coronavirus screen: Client denies travel out of the [place] in the last 14 days. At this time, the client does not indicate any symptoms associated with coronavirus-19. Ebola Screen: No symptoms or risks identified at this time. Initial Sepsis Screen: Does the patient meet any 2 criteria? No. Patient's initial sepsis screen is negative. Does the patient have a suspected source of infection? No. Patient's initial sepsis screen is negative. Risk Assessment: Do you want to hurt yourself or someone else? Patient reports no desire to harm self or others. Onset of symptoms was February 04, 2022. 23:40 Method Of Arrival: Wheelchair lg3 23:40 Acuity: CLARICE 3 lg3 Triage Assessment: 23:48 General: Appears in no apparent distress. comfortable, Behavior is calm, cooperative, lg3 flat. Pain: Complains of pain in generalized. EENT: No deficits noted. No signs and/or symptoms were reported regarding the EENT system. Neuro: No deficits noted. Level of Consciousness is awake, alert, obeys commands, Oriented to person, place, time, situation. Cardiovascular: No deficits noted. Capillary refill < 3 seconds Clubbing of nail beds is absent JVD is absent Patient's skin is warm and dry. Respiratory: Reports shortness of breath Onset: The symptoms/episode began/occurred monday, the patient has moderate shortness of breath. GI: No deficits noted. No signs and/or symptoms were reported involving the gastrointestinal system. Abdomen is round non-distended. : No deficits noted. No signs and/or symptoms were reported regarding the genitourinary system. Derm: Skin is intact, is healthy with good turgor, Skin is dry, dialysis fistula noted to right upper arm. Musculoskeletal: No deficits noted. No signs and/or symptoms reported regarding the musculoskeletal system. Circulation, motion, and sensation intact. Range of motion: intact in all extremities. Historical: - Allergies: 23:48 Heparin; lg3 23:48 Rocephin; lg3 - PMHx: 23:48 Dialysis; Glaucoma; Hypertensive disorder; lg3 - PSHx: 23:48 section; Cholecystectomy; tubal ligation; lg3 - Immunization history:: Adult Immunizations up to date, Client reports receiving the 2nd dose of the Covid vaccine, Mario \\T\\ Mario X2. - Social history:: Smoking status: Patient denies any tobacco usage or history of. Patient/guardian denies using alcohol. Screenin/04 00:05 Abuse screen: Denies threats or abuse. Denies injuries from another. Nutritional sm5 screening: No deficits noted. Tuberculosis screening: No symptoms or risk factors identified. Fall Risk None identified. Total Bean Fall Scale indicates No Risk (0-24 pts). Assessment: 00:06 Neuro: Level of Consciousness is awake, alert, obeys commands, Oriented to person, sm5 place, time, situation. Cardiovascular: No deficits noted. Capillary refill < 3 seconds Patient's skin is warm and dry. Rhythm is regular. Respiratory: Airway is patent Trachea midline Respiratory effort is even, Breath sounds are clear bilaterally. Vital Signs: 02/06 23:40 BP 110 / 56; Pulse 84; Resp 16 S; Temp 99.8(O); Pulse Ox 100% on 2 lpm NC; Weight 83.01 lg3 kg (R); Height 5 ft. 3 in. (160.02 cm) (R); Pain 0/10; 02/07 02:03 BP 116 / 66; Pulse 92; Resp 26; Pulse Ox 98% on 2 lpm NC; sm5 02/06 23:40 Body Mass Index 32.42 (83.01 kg, 160.02 cm) lg3 ED Course: 02/06 22:48 Patient arrived in ED. ja2 23:48 Triage completed. lg3 23:48 Arm band placed on left wrist. lg3 23:52 Samantha Mcmanus, MELITON is Primary Nurse. sm5 23:57 Lc Sullivan MD is Attending Physician. [facility] 02/07 00:05 Patient has correct armband on for positive identification. Placed in gown. Bed in low sm5 position. Call light in reach. Side rails up X2. knot cutter on. Pulse ox on. NIBP on. 00:05 Inserted saline lock: 20 gauge in right antecubital area, using aseptic technique. 5 Blood collected. 00:06 Initial lab(s) drawn, by me, sent to lab. EKG done, by ED staff. sm5 00:07 Basic Metabolic Panel Sent. sm5 00:07 CBC with Diff Sent. sm5 00:07 LFT's Sent. sm5 00:07 Magnesium Sent. sm5 00:07 NT PRO-BNP Sent. sm5 00:07 PT-INR Sent. sm5 00:07 Troponin HS Sent. 5 00:41 XRAY Chest (1 view) In Process Unspecified. EDNC 01:03 COVID-19/FLU A+B (Document "Date of Onset" if Symptomatic) Sent. 5 01:22 Notified ED physician of a critical lab result(s). creat 8.11 troponin 527.6. tw5 02:54 Magdy Galicia is Hospitalizing Provider. 7 Administered Medications: 03:04 Drug: Lasix (furosemide) 60 mg Route: IVP; Site: right antecubital; 5 04:12 Follow up: Response: No adverse reaction 5 04:41 Drug: Dextrose 10 % in Water 250 ml Route: IV; Rate: bolus; Site: right antecubital; 5 04:45 Follow up: Response: Blood sugar is elevated; IV Status: Completed infusion; IV Intake: 5 250ml Intake: 04:45 IV: 250ml; Total: 250ml. 5 Outcome: 02:55 Decision to Hospitalize by Provider. [facility] 02/08 09:10 Patient left the ED. iw Signatures: Dispatcher [employer] Evelyn Mckinnon, Daphne Medina RN, RN RN 3 Lc Sullivan MD MD 7 Betsy Littlejohn Tiffany 5 Samantha Mcmanus RN RN 5
--- NOTE | 2022-02-07 02:57 | EDPHYS ---
Physician Documentation [facility] Name: Tulio Smith Age: 61 yrs Sex: Female : 1960 Arrival Date: 02/06/2022 Time: 22:48 Bed 23 Private MD: ED Physician Lc Sullivan HPI: 02/07 00:40 This 61 yrs old Black Female presents to ER via Wheelchair with complaints of Breathing mh7 Difficulty. 00:40 The patient has shortness of breath at rest. Onset: The symptoms/episode began/occurred mh7 3 day(s) ago. Duration: The symptoms are intermittent, with no pattern. The patient's shortness of breath is aggravated by coughing, is alleviated by nothing. Associated signs and symptoms: Pertinent positives: productive cough, Pertinent negatives: chest pain, non-productive cough, diaphoresis, dizziness, fever, hemoptysis, loss of consciousness, nausea, numbness in extremities, visual changes, vomiting. Severity of symptoms: At their worst the symptoms were moderate 2 day(s) ago, in the emergency department the symptoms are unchanged. Historical: - Allergies: 02/06 23:48 Heparin; lg3 23:48 Rocephin; lg3 - PMHx: 23:48 Dialysis; Glaucoma; Hypertensive disorder; lg3 - PSHx: 23:48 section; Cholecystectomy; tubal ligation; lg3 - Immunization history:: Adult Immunizations up to date, Client reports receiving the 2nd dose of the Covid vaccine, Mario \\T\\ Mario X2. - Social history:: Smoking status: Patient denies any tobacco usage or history of. Patient/guardian denies using alcohol. ROS: 02/07 00:40 Constitutional: Negative for fever, chills, and weight loss, Eyes: Negative for injury, mh7 pain, redness, and discharge, ENT: Negative for injury, pain, and discharge, Neck: Negative for injury, pain, and swelling, Cardiovascular: Negative for chest pain, palpitations, and edema, Abdomen/GI: Negative for abdominal pain, nausea, vomiting, diarrhea, and constipation, Back: Negative for injury and pain, : Negative for injury, bleeding, discharge, and swelling, MS/Extremity: Negative for injury and deformity, Skin: Negative for injury, rash, and discoloration, Neuro: Negative for headache, weakness, numbness, tingling, and seizure, Psych: Negative for depression, anxiety, suicide ideation, homicidal ideation, and hallucinations, Allergy/Immunology: Negative for hives, rash, and allergies, Endocrine: Negative for neck swelling, polydipsia, polyuria, polyphagia, and marked weight changes, Hematologic/Lymphatic: Negative for swollen nodes, abnormal bleeding, and unusual bruising. Exam: 00:40 Head/Face: Normocephalic, atraumatic. Eyes: Pupils equal round and reactive to light, mh7 extra-ocular motions intact. Lids and lashes normal. Conjunctiva and sclera are non-icteric and not injected. Cornea within normal limits. Periorbital areas with no swelling, redness, or edema. Neck: Trachea midline, no thyromegaly or masses palpated, and no cervical lymphadenopathy. Supple, full range of motion without nuchal rigidity, or vertebral point tenderness. No Meningismus. Chest/axilla: Normal chest wall appearance and motion. Nontender with no deformity. No lesions are appreciated. 00:40 Cardiovascular: Regular rate and rhythm with a normal S1 and S2. No gallops, murmurs, or rubs. Normal PMI, no JVD. No pulse deficits. 00:40 Abdomen/GI: Soft, non-tender, with normal bowel sounds. No distension or tympany. No guarding or rebound. No evidence of tenderness throughout. Back: No spinal tenderness. No costovertebral tenderness. Full range of motion. Skin: Warm, dry with normal turgor. Normal color with no rashes, no lesions, and no evidence of cellulitis. MS/ Extremity: Pulses equal, no cyanosis. Neurovascular intact. Full, normal range of motion. Neuro: Awake and alert, GCS 15, oriented to person, place, time, and situation. Cranial nerves II-XII grossly intact. Motor strength 5/5 in all extremities. Sensory grossly intact. Cerebellar exam normal. Normal gait. Psych: Awake, alert, with orientation to person, place and time. Behavior, mood, and affect are within normal limits. 00:40 Constitutional: The patient appears in no acute distress, alert, awake, uncomfortable. 00:40 Cardiovascular: 00:40 Respiratory: the patient does not display signs of respiratory distress, Respirations: prolonged exhalation, that is mild, Breath sounds: rhonchi, that are mild, are scattered, Respiratory rate: 16 Vital Signs: 02/06 23:40 BP 110 / 56; Pulse 84; Resp 16 S; Temp 99.8(O); Pulse Ox 100% on 2 lpm NC; Weight 83.01 lg3 kg (R); Height 5 ft. 3 in. (160.02 cm) (R); Pain 0/10; 02/07 02:03 BP 116 / 66; Pulse 92; Resp 26; Pulse Ox 98% on 2 lpm NC; sm5 02/06 23:40 Body Mass Index 32.42 (83.01 kg, 160.02 cm) lg3 MDM: 02:53 Differential diagnosis: Anemia Anxiety Reaction asthma, Bronchitis CHF exacerbation, mh7 Chronic Obstructive Pulmonary Disease Myocardial Infarction pneumonia, Pneumothorax Psychogenic pulmonary edema. Data reviewed: vital signs, nurses notes, old medical records, lab test result(s), cardiac enzymes, CBC, electrolytes, EKG, radiologic studies, plain films. Data interpreted: Pulse oximetry: on 2L(s) per nasal canula, is 98 %. Interpretation: acceptable. Counseling: I had a detailed discussion with the patient and/or guardian regarding: the historical points, exam findings, and any diagnostic results supporting the discharge/admit diagnosis, the presence of at least one elevated blood pressure reading (>120/80) during this emergency department visit, lab results, radiology results, the need for further work-up and treatment in the hospital. Response to treatment: the patient's symptoms have mildly improved after treatment. 02:55 Patient medically screened. [facility] 02/06 23:58 Order name: Basic Metabolic Panel; Complete Time: : [facility] 02/06 23:58 Order name: CBC with Diff; Complete Time: 01: 02/06 23:58 Order name: LFT's; Complete Time: : [facility] 02/06 23:58 Order name: Magnesium; Complete Time: : [facility] 02/06 23:58 Order name: NT PRO-BNP; Complete Time: : 02/06 23:58 Order name: PT-INR; Complete Time: 01:22 [facility] 02/06 23:58 Order name: Troponin HS; Complete Time: 01: [facility] 02/07 00:53 Order name: COVID-19/FLU A+B (Document "Date of Onset" if Symptomatic); Complete Time: tw5 02:08 02/07 04:39 Order name: Glucose, Ancillary Testing EDMS 02/07 05:06 Order name: Glucose, Ancillary Testing EDMS 02/07 07:42 Order name: Glucose, Ancillary Testing EDMS 02/07 08:23 Order name: Troponin High Sensitivity EDMS 02/07 10:39 Order name: Glucose, Ancillary Testing EDMS 02/06 23:58 Order name: XRAY Chest (1 view); Complete Time: 01:41 mh7 02/07 12:36 Order name: Glucose, Ancillary Testing EDMS 02/07 15:20 Order name: Troponin High Sensitivity EDMS 02/07 18:34 Order name: Glucose, Ancillary Testing EDMS 02/07 21:42 Order name: Glucose, Ancillary Testing EDMS 02/07 23:28 Order name: Glucose, Ancillary Testing EDMS 02/08 03:31 Order name: Glucose, Ancillary Testing EDMS 02/08 03:55 Order name: CBC with Automated Diff EDMS 02/08 04:23 Order name: Comprehensive Metabolic Panel EDMS 02/08 04:23 Order name: Phosphorus EDMS 02/08 04:23 Order name: NT PRO-BNP EDMS 02/08 04:23 Order name: Magnesium EDMS 02/08 07:43 Order name: Glucose, Ancillary Testing EDMS 02/08 08:11 Order name: US EDMS 02/06 23:58 Order name: EKG; Complete Time: 23:59 mh7 02/06 23:58 Order name: Cardiac monitoring; Complete Time: 00:07 mh7 02/06 23:58 Order name: EKG - Nurse/Tech; Complete Time: 00:07 mh7 02/06 23:58 Order name: IV Saline Lock; Complete Time: 00:07 mh7 02/06 23:58 Order name: Labs collected and sent; Complete Time: 00:07 mh7 02/06 23:58 Order name: O2 Per Protocol; Complete Time: 00:07 mh7 02/06 23:58 Order name: O2 Sat Monitoring; Complete Time: 00:07 mh7 Administered Medications: 03:04 Drug: Lasix (furosemide) 60 mg Route: IVP; Site: right antecubital; 5 04:12 Follow up: Response: No adverse reaction 5 04:41 Drug: Dextrose 10 % in Water 250 ml Route: IV; Rate: bolus; Site: right antecubital; sm5 04:45 Follow up: Response: Blood sugar is elevated; IV Status: Completed infusion; IV Intake: sm5 250ml Disposition Summary: 02/07/22 02:55 Hospitalization Ordered Hospitalization Status: Inpatient Admission [facility] Provider: Magdy Galicia Condition: Stable [facility] Problem: an acute exacerbation [facility] Symptoms: have improved [facility] Bed/Room Type: Standard [facility] Location: Telemetry/MedSurg (Inpatient)(02/08/22 07:50) Room Assignment: 404(02/08/22 07:50) Diagnosis - Acute on chronic combined systolic (congestive) and diastolic (congestive) heart [facility] failure - End Stage Renal Disease on Hemodialysis [facility] Forms: - Medication Reconciliation Form [facility] - SBAR form [facility] Signatures: Dispatcher [employer] EDMS Nita Ahumada Lee, INDEX EDITOR-C INDEX EDITOR-Cla1 Cece Miller RN MELITON Daphne Gonsalves RN RN 3 Lc Sullivan MD MD [facility] Deborah Kinsey [facility] Samantha Mcmanus RN RN sm5 Corrections: (The following items were deleted from the chart) 03:00 02:55 Telemetry/MedSurg (Inpatient) 7 cg 03:00 02:55 mh7 cg 02/08 07:50 02/07 03:00 [facility] ER HOLD cg bd 02/08 07:50 02/07 03:00 ERHOLD- cg bd
--- NOTE | 2022-02-07 02:58 | P.HP ---
Certification for Inpatient Patient admitted to: Observation With expected LOS: <2 Midnights Patient will require the following post-hospital care: None Practitioner: I am a practitioner with admitting privileges, knowledge of patient current condition, hospital course, and medical plan of care. Services: Services provided to patient in accordance with Admission requirements found in Title 42 Section 412.3 of the Code of Federal Regulations Patient History Date of Service: 02/07/22 Reason for admission: Pulmonary edema History of Present Illness: 61-year-old -[place] female with history of ESRD on HD, hypertension, diabetes mellitus type 2insulin-dependent presents emergency department for shortness of breath. Patient was evaluated the emergency department found to have pulmonary edema, volume overload related to ESRD on HD. Also with anemia of chronic disease. ED provider wishes to admit under observation for pulmonary edema, dyspnea. Allergies heparin Allergy (Verified 07/28/21 14:27) Hives Home Medications: Nifedipine [Adalat cc] 90 mg PO BEDTIME 02/11/16 Estrogens,Conj [Premarin*] 0.9 mg PO DAILY 09/11/16 Isosorbide Mononitrate [Isosorbide Mononitrate ER] 60 mg PO DAILY 09/11/16 Rosuvastatin [Crestor*] 20 mg PO BEDTIME 09/11/16 Sevelamer Carbonate [Renvela*] 1 tab PO TIDWM 09/11/16 ramipriL [Altace*] 5 mg PO Q12HR #60 cap 09/13/16 Insulin Glargine,Hum.rec.anlog [Corie Novak] 40 units SQ DAILY 12/26/17 Calcitrol [Rocaltrol*] 0.5 mcg PO DAILY #30 cap 11/19/21 Cholecalciferol (Vitamin D3) [Vitamin D 5,000 IU Cap*] 5,000 unit PO DAILY #30 cap 11/19/21 Nepro Shake [Nepro*] 237 ml PO TID #30 can 11/19/21 Cholecalciferol (Vitamin D3) [Vitamin D 5,000 IU Cap*] 5,000 unit PO DAILY 01/10/22 Docusate [Colace Cap*] 100 mg PO DAILY 01/10/22 Doxazosin [Cardura*] 2 mg PO DAILY 01/10/22 Gabapentin 100 mg PO DAILY 01/10/22 Omeprazole [Prilosec] 40 mg PO DAILY 01/10/22 carvediloL [Coreg*] 25 mg PO BID 01/10/22 - Past Medical/Surgical History Diabetic: Yes -: ESRD, hypertension, Diabetes-IDDM -: high cholesterol, -: Anemia chronic disease -: bilateral eye surgery, hysterectomy -: tubal ligation, C- Section, left arm fistula Psychosocial/ Personal History: Lives at home with family - Family History mom -: Hypertension dad -: Diabetes - Social History Smoking Status: Never smoker Alcohol use: No CD- Drugs: No Caffeine use: No Place of Residence: Home Review of Systems 10-point ROS is otherwise unremarkable Respiratory: Shortness of Breath Physical Examination - Physical Exam General: Alert, In no apparent distress, Oriented x3 HEENT: Atraumatic, PERRLA, Mucous membr. moist/pink, EOMI, Sclerae nonicteric Neck: Supple, 2+ carotid pulse no bruit, No LAD, Without JVD or thyroid abnormality Respiratory: Diminished, Crackles/rales Cardiovascular: Regular rate/rhythm, Normal S1 S2 Gastrointestinal: Normal bowel sounds, No tenderness Musculoskeletal: No tenderness Integumentary: No rashes Neurological: Normal gait, Normal speech, Normal strength at 5/5 x4 extr, Normal tone, Normal affect Lymphatics: No axilla or inguinal lymphadenopathy - Studies Laboratory Data (last 24 hrs) 02/07/22 00:02: PT 13.0 H, INR 1.18 02/07/22 00:02: WBC 12.3 H, Hgb 8.9 L, Hct 27.6 L, Plt Count 202 02/07/22 00:02: Sodium 137, Potassium 4.4, BUN 49 H, Creatinine 8.11 H*, Glucose 78, Magnesium 2.2, Total Bilirubin 0.6, AST 27, ALT 35, Alkaline Phosphatase 109 Assessment and Plan - Plan Assessment: Dyspnea, pulmonary edema secondary to ESRD on HD with hypervolemia Diabetes mellitus type 2insulin-dependent Hypertension Plan: Dyspnea, pulmonary edema secondary to ESRD on HD with hypervolemia: Nephrology consulted will need dialysis. Early saturating okay on room air but significant pulmonary edema noted. No respiratory distress. Diabetes mellitus type 2insulin-dependent: ACH S Accu-Chek, sliding scale insulin. Hypertension: Continue medications. DVT PPX: Heparin Code status:full Discharge Plan: Home Plan to discharge in: 24 Hours - Advance Directives Does patient have a Living Will: No Does patient have a Durable POA for Healthcare: No - Code Status/Comfort Care Code Status Assessed: Yes (Full) Critical Care: No Time Spent Managing Pts Care (In Minutes): 55
[2022-02-07] MEDS ORDERED: FUROSEMIDE 40 MG/4 ML VIAL ONE (03:02)
[2022-02-07] MEDS ORDERED: FUROSEMIDE 20 MG/ 2ML VIAL ONE (03:03)
[2022-02-07] MEDS ORDERED: ONDANSETRON 4 MG/2 ML VIAL IV PRN (04:01)
[2022-02-07 04:04] VITALS: BMI 32.4
[2022-02-07] MEDS ORDERED: D10W 250 ML IV ONE (04:33)
[2022-02-07] MEDS: INSULIN -REGULAR HUMAN 50 UNIT/0.5 ML ML SQ SCH ×4 (07:30→21:00)
[2022-02-07] MEDS ORDERED: HEPARIN 5000 UNIT/ML 1 ML VIAL SQ SCH (09:00)
--- NOTE | 2022-02-07 11:12 | EKG ---
Test Date: 2022-02-06 Test Time: 23:59:13 Pie Maker: MEASUREMENT RESULTS: Intervals: Rate: 97 NJ: 176 QRSD: 86 QT: 356 QTc: 452 Red Bud: P: 64 NJ: 176 QRS: 33 T: 227 INTERPRETIVE STATEMENTS: Normal sinus rhythm Left ventricular hypertrophy with repolarization abnormality Abnormal ECG Compared to ECG 01/10/2022 06:24:25 Left ventricular hypertrophy now present Early repolarization now present T-wave abnormality no longer present Possible ischemia no longer present Electronically Signed On 02-07-22 11:12:04 CDT by Jeremy Guy
[2022-02-07] MEDS ORDERED: MANNITOL 25% 12.5 GM/50 ML VIAL IV PRN (11:44)
[2022-02-07] MEDS ORDERED: NA CHLORIDE 0.9% 1,000 ML IV PRN (11:44)
[2022-02-07] MEDS ORDERED: ALBUMIN HUMAN 25% 50 ML IV SCH (12:00)
[2022-02-07] MEDS ORDERED: EPOETIN ALFA-EPBX 10,000 UNIT/ML VIAL SQ ONE (12:00)
--- NOTE | 2022-02-07 14:38 | P.PN ---
Date of Service: 02/07/22 Patient with hypoglycemia early this morning. She was quite drowsy during my encounter this morning. She is tolerating oxygen by nasal cannula. Diagnosis Volume overload ESRD on hemodialysis Insulin-dependent diabetes with hypoglycemia. Plan: Nephrology consulted. Dr. Arora is planning hemodialysis today. Patient not eating much. Monitor blood glucose every 1-2 hours Hypoglycemia protocol.
--- NOTE | 2022-02-07 18:02 | P.CNS ---
Date of Consult: 02/07/22 Reason for Consult: ESRD Requesting Physician: colin baires Chief Complaint: Pulmonary edema History of Present Illness: 61-year-old -[place] female with history of ESRD on HD, hypertension, diabetes mellitus type 2insulin-dependent presents emergency department for shortness of breath. Patient was evaluated the emergency department found to have pulmonary edema, volume overload related to ESRD on HD. Also with anemia of chronic disease. ED provider wishes to admit under observation for pulmonary edema, dyspnea. 00:40 This 61 yrs old Black Female presents to ER via Wheelchair with complaints of Breathing mh7 Difficulty. 00:40 The patient has shortness of breath at rest. Onset: The symptoms/episode began/occurred mh7 3 day(s) ago. Duration: The symptoms are intermittent, with no pattern. The patient's shortness of breath is aggravated by coughing, is alleviated by nothing. Associated signs and symptoms: Pertinent positives: productive cough, Pertinent negatives: chest pain, non-productive cough, diaphoresis, dizziness, fever, hemoptysis, loss of consciousness, nausea, numbness in extremities, visual changes, vomiting. Severity of symptoms: At their worst the symptoms were moderate 2 day(s) ago, in the emergency department the symptoms are unchanged. Allergies heparin Allergy (Verified 07/28/21 14:27) Hives Home medications list reviewed: Yes Home Medications: Nifedipine [Adalat cc] 90 mg PO BEDTIME 02/11/16 Estrogens,Conj [Premarin*] 0.9 mg PO DAILY 09/11/16 Isosorbide Mononitrate [Isosorbide Mononitrate ER] 60 mg PO DAILY 09/11/16 Rosuvastatin [Crestor*] 20 mg PO BEDTIME 09/11/16 Sevelamer Carbonate [Renvela*] 1 tab PO TIDWM 09/11/16 ramipriL [Altace*] 5 mg PO Q12HR #60 cap 09/13/16 Insulin Glargine,Hum.rec.anlog [Torinuriccardo Sollanie] 40 units SQ DAILY 12/26/17 Calcitrol [Rocaltrol*] 0.5 mcg PO DAILY #30 cap 11/19/21 Cholecalciferol (Vitamin D3) [Vitamin D 5,000 IU Cap*] 5,000 unit PO DAILY #30 cap 11/19/21 Nepro Shake [Nepro*] 237 ml PO TID #30 can 11/19/21 Cholecalciferol (Vitamin D3) [Vitamin D 5,000 IU Cap*] 5,000 unit PO DAILY 01/10/22 Docusate [Colace Cap*] 100 mg PO DAILY 01/10/22 Doxazosin [Cardura*] 2 mg PO DAILY 01/10/22 Gabapentin 100 mg PO DAILY 01/10/22 Omeprazole [Prilosec] 40 mg PO DAILY 01/10/22 carvediloL [Coreg*] 25 mg PO BID 01/10/22 - Past Medical/Surgical History Diabetic: Yes -: ESRD, hypertension, Diabetes-IDDM -: high cholesterol, -: Anemia chronic disease -: bilateral eye surgery, hysterectomy -: tubal ligation, C- Section, left arm fistula Psychosocial/ Personal History: Lives at home with family - Family History mom Medical History: Hypertension dad Medical History: Diabetes - Social History Alcohol use: No CD- Drugs: No Caffeine use: No Place of Residence: Home Review of Systems 10-point ROS is otherwise unremarkable General: Weakness, Malaise Respiratory: SOB with Excertion Gastrointestinal: Nausea Physical Examination Temp Pulse Resp BP Pulse Ox 78 19 130/67 100 02/07/22 12:00 02/07/22 12:00 02/07/22 12:00 02/07/22 12:00 General: Oriented x3, Cooperative HEENT: Atraumatic Neck: JVD distended Respiratory: Diminished Cardiovascular: No edema, Regular rate/rhythm Gastrointestinal: Soft and benign, Non-distended Musculoskeletal: No clubbing, No contractures Integumentary: No rashes, No cyanosis Neurological: Normal speech Laboratory Data (last 24 hrs) 02/07/22 00:02: PT 13.0 H, INR 1.18 02/07/22 00:02: WBC 12.3 H, Hgb 8.9 L, Hct 27.6 L, Plt Count 202 02/07/22 00:02: Sodium 137, Potassium 4.4, BUN 49 H, Creatinine 8.11 H*, Glucose 78, Magnesium 2.2, Total Bilirubin 0.6, AST 27, ALT 35, Alkaline Phosphatase 109 Imagings Data: EXAM DESCRIPTION: RAD - Chest Single View - 02/07/2022 12:39 am CLINICAL HISTORY: SOB Chest pain. COMPARISON: Chest Single View dated 01/10/2022; Chest Single View dated 12/25/2021; Chest Single View dated 11/18/2021; Chest Single View dated 10/28/2021 FINDINGS: Portable technique limits examination quality. Extensive bilateral pulmonary opacities are present which may represent pulmonar y edema or pneumonia. The heart is mildly enlarged in size. Prominent degenerative change involves both shoulders. Conclusions/Impression: ESRD adPKD -HD TIW -Check Abd US HTN with CKD/ CHF -Monitor H&H Diastolic CHF, A/C -HD with UF DM II with CKD complicated by hypoglycemia -RISS Mild malnutrition -Start Nepro Anemia in CKD -Retacrit X1 CKD MBD -Start Vitamin D Case reviewed with Dr. Baires Thank you kindly for the consultation.
[2022-02-07] MEDS ORDERED: INSULIN -REGULAR HUMAN 50 UNIT/0.5 ML ML ONE (23:26)
[2022-02-07] MEDS: DOCUSATE NA 100 MG CAP PO SCH (23:58)
[2022-02-07] MEDS: NEPRO SHAKE 237 ML CAN PO SCH (23:58)
[2022-02-08] MEDS ORDERED: DOCUSATE NA 100 MG CAP PO ONE
[2022-02-08 03:53] LABS: Absolute Lymphocytes (CBC) 0.9 K/uL (0.7-4.9); Hematocrit 28.1 % (36.0-45.0); MPV 9.1 fL (7.6-11.3); RBC Red Blood Cell Count 3.31 M/uL (3.86-4.86)
[2022-02-08 04:22] LABS: Albumin 2.9 g/dL (3.4-5.0); Bilirubin Total 0.5 mg/dL (0.2-1.0); Magnesium 2.2 mg/dL (1.8-2.4); Phosphorus 4.8 mg/dL (2.5-4.9); Potassium 4.6 mmol/L (3.5-5.1); Protein, Total 7.6 g/dL (6.4-8.2)
--- NOTE | 2022-02-08 08:11 | RAD REPORT ---
EXAM DESCRIPTION: US - Abdomen Exam Complete - 02/08/2022 6:23 am CLINICAL HISTORY: Abdominal pain/weight loss COMPARISON: January 2022 cat scan FINDINGS: The liver has a normal echotexture. Cholecystectomy. The biliary tree is normal caliber. The pancreas is normal in size and echotexture The right kidney measures 13 centimeters with an increased echotexture. Cortical thinning The left kidney measures 12 centimeters with increased echotexture. Cortical thinning Multiple, bilateral renal cysts. Largest left kidney measuring 5 point centimeters. No hemorrhage vis ualized within cyst. . The spleen measures 10 centimeters. The abdominal aorta and inferior vena cava appear unremarkable IMPRESSION: Polycystic renal disease. No acute abnormality is displayed
[2022-02-08] MEDS: INSULIN -REGULAR HUMAN 50 UNIT/0.5 ML ML SQ SCH ×4 (10:35→20:49)
[2022-02-08] MEDS: NEPRO SHAKE 237 ML CAN PO SCH ×3 (10:36→21:07)
[2022-02-08] MEDS: VITAMIN D 5,000 UNIT CAP PO SCH (10:37)
[2022-02-08] MEDS: CALCITROL 0.25 MCG CAP PO SCH (10:37)
[2022-02-08] MEDS: DOCUSATE NA 100 MG CAP PO SCH ×2 (10:37→20:49)
--- NOTE | 2022-02-08 19:40 | P.PN ---
Subjective Date of Service: 02/08/22 Chief Complaint: Pulmonary edema Patient more interactive today. She is complaining of low back pain. She also stated she still feels bloated. Blood sugars are elevated today. Physical Examination - Vital Signs Temperature: 98.4 F Blood Pressure: 100/50 Pulse: 72 Respirations: 18 Pulse Ox (%): 98 - Physical Exam General: Alert, In no apparent distress, Oriented x3 HEENT: Mucous membr. moist/pink Neck: Supple, JVD not distended Respiratory: Clear to auscultation bilaterally, Normal air movement Cardiovascular: Regular rate/rhythm, Normal S1 S2, Edema (Bilateral legs) Gastrointestinal: Normal bowel sounds, Soft and benign, Non-distended, No tenderness Musculoskeletal: No erythema, No tenderness Integumentary: No rashes, No cyanosis Neurological: Normal speech, Normal strength at 5/5 x4 extr, Cranial nerves 3-12 intact Assessment And Plan - Current Problems (Diagnosis) (1) End-stage renal disease on hemodialysis Onset Date: 09/14/16 Current Visit: No Status: Chronic (2) Polycystic kidney disease Current Visit: Yes Status: Acute (3) Diabetes mellitus type 2 in obese Current Visit: Yes Status: Acute (4) Pulmonary edema Onset Date: 09/14/16 Current Visit: No Status: Acute Qualifiers: Chronicity: acute Qualified Code(s): J81.0 - Acute pulmonary edema (5) Poorly-controlled hypertension Onset Date: 09/14/16 Current Visit: No Status: Chronic - Plan Patient seen by nephrology-Dr. Arora. She underwent hemodialysis yesterday. Patient plan for [id number] hemodialysis. Abdominal ultrasound reviewed and demonstrated polycystic kidney. No mention of significant change in size. Blood sugars elevated today. Continue insulin sliding scale Resume long-acting insulin at half her home dose. Patient is currently normotensive without her antihypertensives. Continue to hold antihypertensives. Wean off oxygen.
--- NOTE | 2022-02-08 20:34 | P.PN ---
Date of Service: 02/08/22 Vital Signs Temp Pulse Resp BP Pulse Ox 98.4 F 72 18 100/50 L 98 02/08/22 19:40 02/08/22 19:40 02/08/22 19:40 02/08/22 19:40 02/08/22 19:40 Medications Calcitriol (Calcitrol 0.25 Mcg Cap) 0.5 mcg PO DAILY [facility] Last Admin: 02/08/22 10:37 Dose: 0.5 mcg Documented by: Cholecalciferol (Vitamin D 5,000 Unit Cap) 5,000 unit PO DAILY [facility] Last Admin: 02/08/22 10:37 Dose: 5,000 unit Documented by: Docusate Sodium (Docusate Na 100 Mg Cap) 100 mg PO BID [facility] Last Admin: 02/08/22 10:37 Dose: 100 mg Documented by: Enteral Nutritional Formula (Nepro Shake 237 Ml Can) 240 ml PO TID [facility] Last Admin: 02/08/22 14:21 Dose: 240 ml Documented by: Albumin Human (Albumin 25%) 50 mls @ 100 mls/hr IV EVERY HD [facility] Insulin Human Regular (Insulin -Regular Human 50 Unit/0.5 Ml Ml) 0 unit SQ ACHS [facility]; Protocol Last Admin: 02/08/22 16:30 Dose: 7 unit Documented by: Mannitol (Mannitol 25% 12.5 Gm/50 Ml Vial) 12.5 gm IV EVERY HD PRN PRN Reason: Titrate to SBP (MUST DEFINE) Ondansetron HCl (Ondansetron 4 Mg/2 Ml Vial) 4 mg IV Q6HP PRN PRN Reason: NAUSEA / VOMITING Sodium Chloride (Flush Normal Saline 10 Ml) 10 ml IV BID [facility] Last Admin: 02/08/22 10:37 Dose: 10 ml Documented by: Assessment/ Plan: Nephrology Dyspnea and malaise No chest pain No acute events overnight Vitals, medications, blood work and imaging reviewed in the chart. General: Oriented x3, Cooperative HEENT: Atraumatic Neck: JVD distended Respiratory: Diminished Cardiovascular: No edema, Regular rate/rhythm Gastrointestinal: Soft and benign, Non-distended Musculoskeletal: No clubbing, No contractures Integumentary: No rashes, No cyanosis Neurological: Normal speech Laboratory Data (last 24 hrs) 02/07/22 00:02: PT 13.0 H, INR 1.18 02/07/22 00:02: WBC 12.3 H, Hgb 8.9 L, Hct 27.6 L, Plt Count 02/07/22 00:02: Sodium 137, Potassium 4.4, BUN 49 H, Creatinine 8.11 H*, Glucose 78, Magnesium 2.2, Total Bilirubin 0.6, AST 27, ALT 35, Alkaline Phosphatase 109 Imagings Data: EXAM DESCRIPTION: RAD - Chest Single View - 02/07/2022 12:39 am CLINICAL HISTORY: SOB Chest pain. COMPARISON: Chest Single View dated 01/10/2022; Chest Single View dated 12/25/2021; Chest Single View dated 11/18/2021; Chest Single View dated 10/28/2021 FINDINGS: Portable technique limits examination quality. Extensive bilateral pulmonary opacities are present which may represent pulmonary edema or pneumonia. The heart is mildly enlarged in size. Prominent degenerative change involves both shoulders. Conclusions/Impression: ESRD adPKD -HD TIW; Extra HD as ordered -Abd US reviewed HTN with CKD/ CHF -Monitor H&H Diastolic CHF, A/C -HD with UF -Consult pulmonary for recurrent dyspnea DM II with CKD complicated by hypoglycemia -RISS Mild malnutrition -Continue Nepro Anemia in CKD -Retacrit TIW CKD MBD -Continue Vitamin D
[2022-02-09 03:23] VITALS: O2SAT 99
[2022-02-09] MEDS ORDERED: BISACODYL 10 MG RECTAL SUPP PR ONE (03:48)
[2022-02-09 04:05] LABS: Absolute Lymphocytes (CBC) 0.9 K/uL (0.7-4.9); Hematocrit 25.6 % (36.0-45.0); Lymphocytes % 10.2 % (15.3-44.8); MPV 8.8 fL (7.6-11.3); RBC Red Blood Cell Count 3.01 M/uL (3.86-4.86)
[2022-02-09 04:33] LABS: Albumin 2.9 g/dL (3.4-5.0); Bilirubin Total 0.4 mg/dL (0.2-1.0); Potassium 4.7 mmol/L (3.5-5.1); Protein, Total 7.8 g/dL (6.4-8.2)
[2022-02-09] MEDS: INSULIN -REGULAR HUMAN 50 UNIT/0.5 ML ML SQ SCH ×2 (08:48→13:52)
[2022-02-09] MEDS: CALCITROL 0.25 MCG CAP PO SCH (08:49)
[2022-02-09] MEDS: VITAMIN D 5,000 UNIT CAP PO SCH (08:49)
[2022-02-09] MEDS: DOCUSATE NA 100 MG CAP PO SCH (08:49)
[2022-02-09] MEDS: NEPRO SHAKE 237 ML CAN PO SCH (08:50)
--- NOTE | 2022-02-09 11:48 | P.CNS ---
Date of Consult: 02/09/22 Reason for Consult: Shortness of breath Chief Complaint: Pulmonary edema History of Present Illness: Patient is 61 years of age history of chronic renal failure on dialysis admitted with acute dyspnea possibly pulmonary edema compliant with dialysis denies any fever or chills still complains of shortness of breath and orthopnea white count is declining does not take oxygen at home does not smoke Allergies heparin Allergy (Verified 07/28/21 14:27) Hives Home Medications: Nifedipine [Adalat cc] 90 mg PO BID 02/11/16 Isosorbide Mononitrate [Isosorbide Mononitrate ER] 60 mg PO DAILY 09/11/16 Rosuvastatin [Crestor*] 20 mg PO BEDTIME 09/11/16 Sevelamer Carbonate [Renvela*] 1 tab PO TIDWM 09/11/16 Cholecalciferol (Vitamin D3) [Vitamin D 5,000 IU Cap*] 5,000 unit PO DAILY 01/10/22 Docusate [Colace Cap*] 100 mg PO DAILY PRN 01/10/22 carvediloL [Coreg*] 25 mg PO BID 01/10/22 Estrogens,Conj [Premarin*] 0.9 mg PO DAILY 02/08/22 Ranitidine [Zantac*] 75 mg PO Q8H PRN 02/08/22 Travoprost [Travatan Z*] 1 drop OPTH BEDTIME 02/08/22 ramipriL [Altace*] 10 mg PO BEDTIME 02/08/22 Calcitrol [Rocaltrol*] 0.5 mcg PO DAILY #60 cap 02/09/22 Epoetin [Retacrit] 10,000 unit SQ M,W,F vial 02/09/22 Insulin Glargine,Hum.rec.anlog [Toualbao Solostar] 35 units SQ DAILY #15 ml 02/09/22 Mannitol 25% [Mannitol*] 12.5 gm IV EVERY HD PRN vial 02/09/22 - Past Medical/Surgical History Diabetic: Yes -: ESRD, hypertension, Diabetes-IDDM -: high cholesterol, -: Anemia chronic disease -: bilateral eye surgery, hysterectomy -: tubal ligation, C- Section, left arm fistula Psychosocial/ Personal History: Lives at home with family - Family History mom Medical History: Hypertension dad Medical History: Diabetes - Social History Alcohol use: No CD- Drugs: No Caffeine use: No Place of Residence: Home Review of Systems 10-point ROS is otherwise unremarkable Respiratory: As per HPI Physical Examination Temp Pulse Resp BP Pulse Ox 98.1 F 78 18 112/57 L 100 02/09/22 04:00 02/09/22 04:00 02/09/22 04:00 02/09/22 04:00 02/09/22 04:00 General: Alert, In no apparent distress, Oriented x3 Respiratory: Clear to auscultation bilaterally Cardiovascular: No edema, Regular rate/rhythm, Normal S1 S2 Gastrointestinal: Normal bowel sounds, Soft and benign - Problems (1) Dyspnea Current Visit: Yes Status: Acute Plan: Patient is 61 years of age end-stage renal disease on dialysis admitted with acute dyspnea compliant with her dialysis never smoked P chest x-ray echocardiogram check room air pulse ox evaluate for home O2 possible discharge echocardiogram repeat chest x-ray ordered meds need to be reconciled Qualifiers: Dyspnea type: shortness of breath Qualified Code(s): R06.02 - Shortness of breath; R06.00 - Dyspnea, unspecified; R06.01 - Orthopnea
--- NOTE | 2022-02-09 15:06 | P.DS ---
Admission Date: 02/08/22 Discharge Date: 02/09/22 Disposition: ROUTINE DISCHARGE Discharge Condition: FAIR Reason for Admission: Pulmonary edema - Problems (1) End-stage renal disease on hemodialysis Onset Date: 09/14/16 Status: Chronic (2) Polycystic kidney disease Status: Acute (3) Diabetes mellitus type 2 in obese Status: Acute (4) Pulmonary edema Onset Date: 09/14/16 Status: Acute Qualifiers: Chronicity: acute Qualified Code(s): J81.0 - Acute pulmonary edema (5) Poorly-controlled hypertension Onset Date: 09/14/16 Status: Chronic Brief History of Present Illness: 61-year-old -[place] female with history of ESRD on HD, hypertension, diabetes mellitus type 2insulin-dependent presented to the emergency department for shortness of breath. Patient was evaluated in the emergency department and found to have pulmonary edema, volume overload related to ESRD on HD. Also with anemia of chronic disease. Patient admitted for further management. Hospital Course: Patient admitted to the medical floor, seen by nephrology-Dr. Arora and patient underwent [id number] hemodialysis. His shortness of breath improved to baseline. Abdominal ultrasound was done to follow her polycystic kidneys and it reported no significant change in kidney sizes. Her volume overload has significantly improved and patient deemed stable for discharge per nephrology. Patient informed not to take her antihypertensives until her systolic blood pr essure is greater than 140. Vital Signs/Physical Exam: Temp Pulse Resp BP Pulse Ox 98.1 F 78 18 112/57 L 100 02/09/22 04:00 02/09/22 04:00 02/09/22 04:00 02/09/22 04:00 02/09/22 04:00 General: Alert, In no apparent distress, Oriented x3 HEENT: Mucous membr. moist/pink Neck: Supple, JVD not distended Respiratory: Clear to auscultation bilaterally, Normal air movement Cardiovascular: Regular rate/rhythm, Normal S1 S2, Edema (Trace bilateral lower extremity edema) Gastrointestinal: Soft and benign, Non-distended, No tenderness Musculoskeletal: No swelling, No tenderness Integumentary: No rashes, No cyanosis Neurological: Normal strength at 5/5 x4 extr Laboratory Data at Discharge: WBC 8.6 K/uL (4.3-10.9) D 02/09/22 03:36 Hgb 8.5 g/dL (12.0-15.0) L 02/09/22 03:36 Hct 25.6 % (36.0-45.0) L 02/09/22 03:36 Plt Count 201 K/uL (152-406) 02/09/22 03:36 PT 13.0 SECONDS (9.5-12.5) H 02/07/22 00:02 INR 1.18 02/07/22 00:02 Sodium 133 mmol/L (136-145) L 02/09/22 03:36 Potassium 4.7 mmol/L (3.5-5.1) 02/09/22 03:36 BUN 45 mg/dL (7-18) H 02/09/22 03:36 Creatinine 6.27 mg/dL (0.55-1.3) H* 02/09/22 03:36 Glucose 363 mg/dL (74-106) H 02/09/22 03:36 Phosphorus 4.8 mg/dL (2.5-4.9) 02/08/22 03:23 Magnesium 2.2 mg/dL (1.8-2.4) 02/08/22 03:23 Total Bilirubin 0.4 mg/dL (0.2-1.0) 02/09/22 03:36 AST 18 U/L (15-37) 02/09/22 03:36 ALT 23 U/L (12-78) 02/09/22 03:36 Alkaline Phosphatase 92 U/L (45-117) 02/09/22 03:36 Home Medications: Nifedipine [Adalat cc] 90 mg PO BID 02/11/16 Isosorbide Mononitrate [Isosorbide Mononitrate ER] 60 mg PO DAILY 09/11/16 Rosuvastatin [Crestor*] 20 mg PO BEDTIME 09/11/16 Sevelamer Carbonate [Renvela*] 1 tab PO TIDWM 09/11/16 Cholecalciferol (Vitamin D3) [Vitamin D 5,000 IU Cap*] 5,000 unit PO DAILY 01/10/22 Docusate [Colace Cap*] 100 mg PO DAILY PRN 01/10/22 carvediloL [Coreg*] 25 mg PO BID 01/10/22 Estrogens,Conj [Premarin*] 0.9 mg PO DAILY 02/08/22 Ranitidine [Zantac*] 75 mg PO Q8H PRN 02/08/22 Travoprost [Travatan Z*] 1 drop OPTH BEDTIME 02/08/22 ramipriL [Altace*] 10 mg PO BEDTIME 02/08/22 Calcitrol [Rocaltrol*] 0.5 mcg PO DAILY #60 cap 02/09/22 Epoetin [Retacrit] 10,000 unit SQ M,W,F vial 02/09/22 Insulin Glargine,Hum.rec.anlog [Toujeo Solostar] 35 units SQ DAILY #15 ml 02/09/22 Mannitol 25% [Mannitol*] 12.5 gm IV EVERY HD PRN vial 02/09/22 New Medications: Calcitrol [Rocaltrol*] 0.5 mcg PO DAILY #60 cap Insulin Glargine,Hum.rec.anlog [Toujeo Solostar] 35 units SQ DAILY #15 ml Diet: Renal Activity: Fall precautions Followup: Wellington Arora DO [ACTIVE - CAN ADMIT] - 1-2 Weeks (Call for appointment.) Unknown,U [Primary Care Provider] - 1-2 Weeks (Call for appointment.) Time spent managing pt's care (in minutes): 33
[2022-02-09] MEDS ORDERED: EPOETIN ALFA 10,000 UNIT/ML VIAL SQ SCH (17:00)
[2022-02-09 17:19] VITALS: BP 117/63; TEMP 99.3
--- NOTE | 2022-02-09 20:06 | P.PN ---
Date of Service: 02/09/22 Vital Signs Temp Pulse Resp BP Pulse Ox 99.3 F 74 18 117/63 98 02/09/22 08:00 02/09/22 08:00 02/09/22 08:00 02/09/22 08:00 02/09/22 08:00 Assessment/ Plan: Nephrology Improving dyspnea No chest pain No acute events overnight Vitals, medications, blood work and imaging reviewed in the chart. General: Oriented x3, Cooperative HEENT: Atraumatic Neck: JVD distended Respiratory: Diminished Cardiovascular: No edema, Regular rate/rhythm Gastrointestinal: Soft and benign, Non-distended Musculoskeletal: No clubbing, No contractures Integumentary: No rashes, No cyanosis Neurological: Normal speech Laboratory Data (last 24 hrs) 02/07/22 00:02: PT 13.0 H, INR 1.18 02/07/22 00:02: WBC 12.3 H, Hgb 8.9 L, Hct 27.6 L, Plt Count 02/07/22 00:02: Sodium 137, Potassium 4.4, BUN 49 H, Creatinine 8.11 H*, Glucose 78, Magnesium 2.2, Total Bilirubin 0.6, AST 27, ALT 35, Alkaline Phosphatase 109 Imagings Data: EXAM DESCRIPTION: RAD - Chest Single View - 02/07/2022 12:39 am CLINICAL HISTORY: SOB Chest pain. COMPARISON: Chest Single View dated 01/10/2022; Chest Single View dated 12/25/2021; Chest Single View dated 11/18/2021; Chest Single View dated 10/28/2021 FINDINGS: Portable technique limits examination quality. Extensive bilateral pulmonary opacities are present which may represent pulmonary edema or pneumonia. The heart is mildly enlarged in size. Prominent degenerative change involves both shoulders. Conclusions/Impression: ESRD adPKD -HD TIW; Extra HD as ordered -Abd US reviewed -Seen and examined on HD HTN with CKD/ CHF -Monitor H&H Diastolic CHF, A/C -HD with UF -Pulmonary evaluating for dyspnea DM II with CKD complicated by hypoglycemia -RISS Mild malnutrition -Continue Nepro Anemia in CKD -Retacrit TIW CKD MBD -Continue Vitamin D Case reviewed with Dr. Galicia
== END 2022-02-09 14:25 | disposition home or self-care (01) | DRG 682 ==
LOC: ER 22:44 → OBSVTOIN 02-07 02:33 → INTOOBSV 02-07 02:33 → ERHOLD 02-07 02:33 → 4TH 02-08 08:23 → OBSVTOIN 02-08 19:40
PROVIDERS: ADMIT Internal Medicine; ATTEND Internal Medicine
PROC: 5A1D70Z Performance of Urinary Filtration, Intermittent, Less than 6 Hours Per Day (ICD-10-PCS; principal; 2022-02-07)
PROC: 5A1D70Z Performance of Urinary Filtration, Intermittent, Less than 6 Hours Per Day (ICD-10-PCS; 2022-02-08)
PROC: 5A1D70Z Performance of Urinary Filtration, Intermittent, Less than 6 Hours Per Day (ICD-10-PCS; 2022-02-09)
DX: I12.0 Hypertensive chronic kidney disease with stage 5 chronic kidney disease or end stage renal disease (principal); N18.6 End stage renal disease; I50.33 Acute on chronic diastolic (congestive) heart failure; Q61.3 Polycystic kidney, unspecified; E44.1 Mild protein-calorie malnutrition; E11.22 Type 2 diabetes mellitus with diabetic chronic kidney disease; E16.2 Hypoglycemia, unspecified; E87.70 Fluid overload, unspecified; D63.1 Anemia in chronic kidney disease; Z99.2 Dependence on renal dialysis; Z68.32 Body mass index [BMI] 32.0-32.9, adult; Z79.4 Long term (current) use of insulin; Z20.822 Contact with and (suspected) exposure to COVID-19; R77.8 Other specified abnormalities of plasma proteins; I13.2 Hypertensive heart and chronic kidney disease with heart failure and with stage 5 chronic kidney disease, or end stage renal disease
CPT/HCPCS: 0240U; 36415; 71045; 76700; 80048; 80053; 80076; 82947; 83735; 83880; 84100; 84484; 85025; 85610; 90935; 93005; 96374; 96375; 99284; G0378; J1940; J2250; Q5106

== ENCOUNTER 2022-05-04 11:48 | Observation (INO) | payer OTHER ==
--- NOTE | 2022-05-04 13:21 | RAD REPORT ---
EXAM DESCRIPTION: Isabel Single View05/04/2022 1:15 pm CLINICAL HISTORY: Cough COMPARISON: February 2022 FINDINGS: Mild to moderate bilateral interstitial lung opacities The heart is moderately enlarged IMPRESSION: [id number] pulmonary edema
[2022-05-04 13:43] LABS: Protime INR 1.08
[2022-05-04 13:45] LABS: Absolute Lymphocytes (CBC) 0.6 K/uL (0.7-4.9); Hematocrit 33.5 % (36.0-45.0); MCV 90.5 fL (80-100); MPV 8.7 fL (7.6-11.3)
[2022-05-04 14:14] LABS: Bilirubin Direct 0.1 mg/dL (0-0.2); Bilirubin Total 0.5 mg/dL (0.2-1.0); Magnesium 2.1 mg/dL (1.8-2.4); Potassium 4.3 mmol/L (3.5-5.1)
[2022-05-04 14:19] LABS: Troponin High Sensitivity 334.9 pg/mL (<58.9)
--- NOTE | 2022-05-04 15:27 | EDPHYS ---
Physician Documentation [facility] Name: Tulio Smith Age: 61 yrs Sex: Female : 1960 Arrival Date: 05/04/2022 Time: 11:51 Bed 16 Private MD: ED Physician Jun Torre HPI: 05/04 15:13 This 61 yrs old Black Female presents to ER via Wheelchair with complaints of Blood emma Pressure Problem. 15:13 WEAKNESS BEFORE DIALYSIS, BP LOW THROUGHOUT, WEAK AT HOME , SOB. Onset: The emma symptoms/episode began/occurred today. Severity of symptoms: At their worst the symptoms were mild in the emergency department the symptoms are unchanged. The patient has experienced similar episodes in the past, several times. Historical: - Allergies: 12:07 Heparin; ap3 12:07 Rocephin; ap3 - PMHx: 12:07 Dialysis; Glaucoma; Hypertensive disorder; ap3 - PSHx: 12:07 section; Cholecystectomy; tubal ligation; ap3 - Immunization history:: Client reports receiving the 2nd dose of the Covid vaccine. - Social history:: Smoking status: Patient denies any tobacco usage or history of. ROS: 15:16 Constitutional: Negative for fever, chills, and weight loss, Eyes: Negative for injury, emma pain, redness, and discharge, ENT: Negative for injury, pain, and discharge, Neck: Negative for injury, pain, and swelling, Cardiovascular: Negative for chest pain, palpitations, and edema, Back: Negative for injury and pain, : Negative for injury, bleeding, discharge, and swelling, MS/Extremity: Negative for injury and deformity, Skin: Negative for injury, rash, and discoloration, Neuro: Negative for headache, weakness, numbness, tingling, and seizure, Psych: Negative for depression, anxiety, suicide ideation, homicidal ideation, and hallucinations, Allergy/Immunology: Negative for hives, rash, and allergies, Endocrine: Negative for neck swelling, polydipsia, polyuria, polyphagia, and marked weight changes, Hematologic/Lymphatic: Negative for swollen nodes, abnormal bleeding, and unusual bruising. 15:16 Respiratory: Positive for shortness of breath. 15:16 Abdomen/GI: Positive for abdominal pain, of the epigastric area and right upper quadrant. Exam: 15:16 Constitutional: This is a well developed, well nourished patient who is awake, alert, emma and in no acute distress. Head/Face: Normocephalic, atraumatic. Eyes: Pupils equal round and reactive to light, extra-ocular motions intact. Lids and lashes normal. Conjunctiva and sclera are non-icteric and not injected. Cornea within normal limits. Periorbital areas with no swelling, redness, or edema. ENT: Nares patent. No nasal discharge, no septal abnormalities noted. Tympanic membranes are normal and external auditory canals are clear. Oropharynx with no redness, swelling, or masses, exudates, or evidence of obstruction, uvula midline. Mucous membranes moist. Neck: Trachea midline, no thyromegaly or masses palpated, and no cervical lymphadenopathy. Supple, full range of motion without nuchal rigidity, or vertebral point tenderness. No Meningismus. Chest/axilla: Normal chest wall appearance and motion. Nontender with no deformity. No lesions are appreciated. Cardiovascular: Regular rate and rhythm with a normal S1 and S2. No gallops, murmurs, or rubs. Normal PMI, no JVD. No pulse deficits. Respiratory: Lungs have equal breath sounds bilaterally, clear to auscultation and percussion. No rales, rhonchi or wheezes noted. No increased work of breathing, no retractions or nasal flaring. Back: No spinal tenderness. No costovertebral tenderness. Full range of motion. Female : Normal external genitalia. Skin: Warm, dry with normal turgor. Normal color with no rashes, no lesions, and no evidence of cellulitis. MS/ Extremity: Pulses equal, no cyanosis. Neurovascular intact. Full, normal range of motion. Neuro: Awake and alert, GCS 15, oriented to person, place, time, and situation. Cranial nerves II-XII grossly intact. Motor strength 5/5 in all extremities. Sensory grossly intact. Cerebellar exam normal. Normal gait. Psych: Awake, alert, with orientation to person, place and time. Behavior, mood, and affect are within normal limits. 15:16 ECG was reviewed by the Attending Physician. 15:16 Abdomen/GI: Inspection: distension, Bowel sounds: normal, Palpation: mild abdominal tenderness, in the epigastric area and right upper quadrant. Vital Signs: 12:05 BP 118 / 57; Pulse 66; Resp 17; Temp 97.6; Pulse Ox 98% ; Weight 82.55 kg; Height 5 ft. ap3 3 in. (160.02 cm); 12:59 BP 143 / 74; Pulse 67; Resp 18 S; Pulse Ox 97% ; jd3 13:42 BP 136 / 72; Pulse 65; Resp 16 S; Pulse Ox 97% on R/A; jd3 16:32 BP 146 / 82; Pulse 72; Resp 16 S; Pulse Ox 98% on R/A; jd3 19:00 BP 133 / 72; Pulse 85; Resp 17; Pulse Ox 98% ; vc1 20:00 BP 145 / 74; Pulse 70; Resp 16; Pulse Ox 97% ; vc1 21:00 BP 155 / 86; Pulse 87; Resp 17; Pulse Ox 96% ; vc1 22:00 BP 153 / 88; Pulse 90; Resp 15; Pulse Ox 98% on R/A; vc1 12:05 Body Mass Index 32.24 (82.55 kg, 160.02 cm) ap3 MDM: 12:55 Patient medically screened. emma 15:19 Differential diagnosis: Anemia Bronchitis CHF exacerbation, Myocardial Infarction emma pulmonary edema, reactive airway disease. Antibiotic administration: Not indicated. The patient's Wells Deep Vein Thrombosis Score was calculated as follows: Total Score: 0-2 Pts- Low Risk. The patient's pulmonary embolism risk score was calculated as follows: Total Score: 0-2 points. This patient was found to be at low risk for a pulmonary embolism by using the Well's assessment criteria. Immunization status: Influenza vaccine:. Data reviewed: vital signs, nurses notes, lab test result(s), EKG, radiologic studies, CT scan, plain films. Data interpreted: monitoring tech: rate is 65 beats/min, rhythm is regular, Pulse oximetry: on room air is 97 %. Test interpretation: by ED physician or midlevel provider: ECG, plain radiologic studies. Counseling: I had a detailed discussion with the patient and/or guardian regarding: the historical points, exam findings, and any diagnostic results supporting the discharge/admit diagnosis, lab results, radiology results, the need for further work-up and treatment in the hospital. 05/04 12:55 Order name: Basic Metabolic Panel; Complete Time: 15:02 [facility] 05/04 12:55 Order name: CBC with Diff; Complete Time: 15:02 emma 05/04 12:55 Order name: LFT's; Complete Time: 15:02 [facility] 05/04 12:55 Order name: Magnesium; Complete Time: 15:02 [facility] 05/04 12:55 Order name: NT PRO-BNP; Complete Time: 15:02 [facility] 05/04 12:55 Order name: PT-INR; Complete Time: 15:02 [facility] 05/04 12:55 Order name: Troponin HS; Complete Time: 15:02 [facility] 05/04 12:55 Order name: XRAY Chest (1 view); Complete Time: 15:02 [facility] 05/04 15:05 Order name: CT Abd/Pelvis - Without Contrast; Complete Time: 16:10 [facility] 05/04 16:31 Order name: SARS-COV-2 RT PCR (Document "Date of Onset" if Symptomatic) jd3 05/04 17:15 Order name: SARS-COV-2 RT PCR (Document "Date of Onset" if Symptomatic) iw 05/04 18:34 Order name: Troponin High Sensitivity; Complete Time: 19:30 EDMS 05/04 18:34 Order name: SARS-COV-2 RT PCR; Complete Time: 19:30 EDMS 05/04 20:58 Order name: Troponin High Sensitivity [facility] 05/04 12:55 Order name: EKG; Complete Time: 12:56 [facility] 05/04 12:55 Order name: Cardiac monitoring; Complete Time: 12:58 [facility] 05/04 12:55 Order name: EKG - Nurse/Tech; Complete Time: 13:42 [facility] 05/04 12:55 Order name: IV Saline Lock; Complete Time: 13:27 [facility] 05/04 12:55 Order name: Labs collected and sent; Complete Time: 13:27 [facility] 05/04 12:55 Order name: O2 Per Protocol; Complete Time: 12:58 [facility] 05/04 12:55 Order name: O2 Sat Monitoring; Complete Time: 12:58 [facility] EC:16 Rate is 66 beats/min. Rhythm is regular. QRS Fromberg is Normal. MD interval is normal. QRS emma interval is normal. QT interval is normal. No Q waves. T waves are Normal. ST Segment is depressed in leads I, aVL, V3, V4, V5, V6. Clinical impression: LVH. Interpreted by me. Reviewed by me. Administered Medications: 13:42 Not Given (Physician Discretion): NS 0.9% 250 ml IV at bolus once jd3 16:47 Drug: Xopenex (levalbuterol) 1.25 mg Route: Inhalation; jd3 17:40 Follow up: Response: No adverse reaction jd3 Disposition Summary: 05/04/22 15:27 Hospitalization Ordered Hospitalization Status: Observation emma Provider: Magdy Galicia cha Location: Telemetry/MedSur (observation) emma Condition: Fair emma Problem: new emma Symptoms: have improved emma Bed/Room Type: Standard emma Room Assignment: 423(05/04/22 21:47) eb1 Diagnosis - Dyspnea emma - Systolic (congestive) heart failure - VOLUME OVERLOAD emma - Hypotension, unspecified - RESOLVED emma - End stage renal disease - ON hd m,w,f emma - Non ST elevation NC - elevated TROPONIN emma - Coronavirus infection, unspecified emma - SARS-associated coronavirus as the cause of diseases classified elsewhere emma Forms: - Medication Reconciliation Form emma - SBAR form emma Signatures: Dispatcher [employer] EDJun Rojas MD MD cha Davies, Jonathon, RN RN jd3 Evelyne Anaya RN RN ap3 Erica Barcenas RN RN eb1 Corrections: (The following items were deleted from the chart) 21:47 15:27 emma eb1
--- NOTE | 2022-05-04 15:27 | ER ---
Nurse's Notes [facility] Name: Tulio Smith Age: 61 yrs Sex: Female : 1960 Arrival Date: 05/04/2022 Time: 11:51 Bed 16 Private MD: Diagnosis: Dyspnea;Systolic (congestive) heart failure-VOLUME OVERLOAD;Hypotension, unspecified-RESOLVED;End stage renal disease-ON hd m,w,f;Non ST elevation AR-elevated TROPONIN;Coronavirus infection, unspecified;SARS-associated coronavirus as the cause of diseases classified elsewhere Presentation: 05/04 12:05 Chief complaint: Patient states: she was getting dialysis today, and reports her BP was ap3 low for the duration of her dialysis. Patient states she went home following dialysis, where she continued to feel weak and tired with a low blood pressure. Patient states this has happened before. Coronavirus screen: At this time, the client does not indicate any symptoms associated with coronavirus-19. Ebola Screen: No symptoms or risks identified at this time. Initial Sepsis Screen: Does the patient meet any 2 criteria? No. Patient's initial sepsis screen is negative. Does the patient have a suspected source of infection? No. Patient's initial sepsis screen is negative. Risk Assessment: Do you want to hurt yourself or someone else? Patient reports no desire to harm self or others. Onset of symptoms was May 04, 2022. 12:05 Method Of Arrival: Wheelchair ap3 12:05 Acuity: CLARICE 3 ap3 Triage Assessment: 12:07 General: Appears in no apparent distress. Behavior is calm, quiet. Pain: Denies pain. ap3 Neuro: Level of Consciousness is awake, alert, obeys commands, Oriented to person, place, time, situation, Appropriate for age. Cardiovascular: Patient's skin is warm and dry. Respiratory: Airway is patent Respiratory effort is even, unlabored, Respiratory pattern is regular, symmetrical. Derm: left upper arm dialysis access. Historical: - Allergies: 12:07 Heparin; ap3 12:07 Rocephin; ap3 - PMHx: 12:07 Dialysis; Glaucoma; Hypertensive disorder; ap3 - PSHx: 12:07 section; Cholecystectomy; tubal ligation; ap3 - Immunization history:: Client reports receiving the 2nd dose of the Covid vaccine. - Social history:: Smoking status: Patient denies any tobacco usage or history of. Screenin:07 Abuse screen: Denies threats or abuse. Nutritional screening: No deficits noted. ap3 Tuberculosis screening: No symptoms or risk factors identified. 13:43 Fall Risk IV access (20 points). Ambulatory Aid- None/Bed Rest/Nurse Assist (0 pts). jd3 Gait- Normal/Bed Rest/Wheelchair (0 pts) Mental Status- Oriented to own ability (0 pts). Total Bean Fall Scale indicates No Risk (0-24 pts). Assessment: 13:42 General: Appears in no apparent distress. comfortable, Behavior is calm, cooperative, jd3 appropriate for age, anxious, Reports anxiety over low blood pressure during dialysis. Pain: Denies pain. Neuro: Rodriguez Agitation-Sedation Scale (RASS): 0 - Alert and Calm Level of Consciousness is awake, alert, obeys commands, Oriented to person, place, time, situation. Cardiovascular: Denies chest pain, Capillary refill < 3 seconds Patient's skin is warm and dry. Rhythm is regular. Respiratory: Airway is patent Respiratory effort is even, unlabored, Respiratory pattern is regular, symmetrical, Denies cough, shortness of breath. GI: No signs and/or symptoms were reported involving the gastrointestinal system. Patient currently denies nausea. : No signs and/or symptoms were reported regarding the genitourinary system. EENT: No signs and/or symptoms were reported regarding the EENT system. Derm: No signs and/or symptoms reported regarding the dermatologic system. Musculoskeletal: No signs and/or symptoms reported regarding the musculoskeletal system. 16:32 Reassessment: Patient appears in no apparent distress at this time. No changes from jd3 previously documented assessment. Patient and/or family updated on plan of care and expected duration. Pain level reassessed. Patient is alert, oriented x 3, equal unlabored respirations, skin warm/dry/pink. 19:00 Reassessment: Patient and/or family updated on plan of care and expected duration. Pain vc1 level reassessed. Patient is alert, oriented x 3, equal unlabored respirations, skin warm/dry/pink. 20:00 Reassessment: No changes from previously documented assessment. Patient and/or family vc1 updated on plan of care and expected duration. Pain level reassessed. Patient is alert, oriented x 3, equal unlabored respirations, skin warm/dry/pink. 21:00 Reassessment: No changes from previously documented assessment. Patient and/or family vc1 updated on plan of care and expected duration. Pain level reassessed. Patient is alert, oriented x 3, equal unlabored respirations, skin warm/dry/pink. Patient states symptoms have improved. 22:00 Reassessment: Patient and/or family updated on plan of care and expected duration. Pain vc1 level reassessed. Patient is alert, oriented x 3, equal unlabored respirations, skin warm/dry/pink. Patient states symptoms have improved. Vital Signs: 12:05 BP 118 / 57; Pulse 66; Resp 17; Temp 97.6; Pulse Ox 98% ; Weight 82.55 kg; Height 5 ft. ap3 3 in. (160.02 cm); 12:59 BP 143 / 74; Pulse 67; Resp 18 S; Pulse Ox 97% ; jd3 13:42 BP 136 / 72; Pulse 65; Resp 16 S; Pulse Ox 97% on R/A; jd3 16:32 BP 146 / 82; Pulse 72; Resp 16 S; Pulse Ox 98% on R/A; jd3 19:00 BP 133 / 72; Pulse 85; Resp 17; Pulse Ox 98% ; vc1 20:00 BP 145 / 74; Pulse 70; Resp 16; Pulse Ox 97% ; vc1 21:00 BP 155 / 86; Pulse 87; Resp 17; Pulse Ox 96% ; vc1 22:00 BP 153 / 88; Pulse 90; Resp 15; Pulse Ox 98% on R/A; vc1 12:05 Body Mass Index 32.24 (82.55 kg, 160.02 cm) ap3 ED Course: 11:51 Patient arrived in ED. ja2 12:07 Triage completed. ap3 12:09 Arm band placed on left wrist. ap3 12:49 Daniel Jordan RN is Primary Nurse. jd3 12:55 Jun Torre MD is Attending Physician. emma 13:17 XRAY Chest (1 view) In Process Unspecified. EDMS 13:30 Inserted saline lock: 22 gauge in right antecubital area, using aseptic technique. jd3 Blood collected. 13:44 Patient has correct armband on for positive identification. Bed in low position. Call jd3 light in reach. Side rails up X2. Adult w/ patient. personnel monitor on. Pulse ox on. NIBP on. 15:22 Magdy Galicia is Hospitalizing Provider. [facility] 15:44 CT Abd/Pelvis - Without Contrast In Process Unspecified. EDMS 22:15 No provider procedures requiring assistance completed. Patient admitted, IV remains in vc1 place. Administered Medications: 13:42 Not Given (Physician Discretion): NS 0.9% 250 ml IV at bolus once jd3 16:47 Drug: Xopenex (levalbuterol) 1.25 mg Route: Inhalation; jd3 17:40 Follow up: Response: No adverse reaction jd3 Medication: 13:43 VIS not applicable for this client. jd3 Outcome: 15:27 Decision to Hospitalize by Provider. [facility] 22:17 Admitted to Tele accompanied by nurse, via wheelchair, room 423, with chart, Report vc1 called to MELITON Álvarez 22:17 Condition: good 22:17 Instructed on the need for admit. 23:14 Patient left the ED. vc1 Signatures: Dispatcher [employer] EDMS Jun Torre MD MD cha Davies, Jonathon, RN RN jd3 Evelyne Anaya RN RN rishi3 Betsy Littlejohn Vanessa, RN RN vc1
--- NOTE | 2022-05-04 15:56 | RAD REPORT ---
EXAM DESCRIPTION: CT - Abdomen Pelvis Wo Contrast - 05/04/2022 3:41 pm CLINICAL HISTORY: Abdominal pain COMPARISON: January 2022 TECHNIQUE: Computed axial tomography of the abdomen and pelvis was obtained. IV and oral contrast we re not requested. All CT scans are performed using dose optimization technique as appropriate and may include automated exposure control or mA/KV adjustment according to patient size. FINDINGS: The evaluation of solid organs, vessels and bowel is limited secondary to the lack of con trast administration. Mild bilateral pulmonary opacities within the lung bases Polycystic renal disease. No hemorrhage visualized within the cyst. Small right renal angiomyolipoma. Diffuse edema within subcutaneous tissues. Cholecystectomy. Liver, spleen, pancreas and adrenals appear grossly Small right pleural effusion There is no evidence of diverticulitis. A 3.1 centimeter lytic expansile lesion within predominately the right femoral neck. It has developed since 2017 IMPRESSION: Mild interstitial pulmonary edema Polycystic renal disease 3.1 centimeter lytic expansile lesion within the proximal right femur. 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
[2022-05-04] MEDS ORDERED: LEVALBUTEROL 1.25 MG/3 ML NEB ONE (16:45)
--- NOTE | 2022-05-04 17:00 | P.HP ---
Certification for Inpatient Patient admitted to: Observation With expected LOS: <2 Midnights Practitioner: I am a practitioner with admitting privileges, knowledge of patient current condition, hospital course, and medical plan of care. Services: Services provided to patient in accordance with Admission requirements found in Title 42 Section 412.3 of the Code of Federal Regulations Patient History Date of Service: 05/04/22 Reason for admission: Hypotension History of Present Illness: 61-year-old -Citizen Of [place] woman with a history of end-stage renal disease, diabetes mellitus type 2 presented to the emergency department with generalized weakness. Patient states she developed hypotension during hemodialysis today and therefore had only 2 hours of dialysis instead of 3 hours. Patient was sent home but she continued to feel weak. She therefore presented to the emergency department. She was normotensive on arrival currently hypertensive during my examination in the ED. Patient reported the weakness is better. Nephrology Dr. Arora was contacted who recommended hospitalization under observation. Patient was also complaining of right upper quadrant pain worse with meals. Her troponin is mildly elevated which is likely secondary to reduced clearance due to ESRD. Patient is hospitalized for further evaluation and management. Allergies heparin Allergy (Verified 07/28/21 14:27) Hives Home Medications: Nifedipine [Adalat cc] 90 mg PO BID 02/11/16 Isosorbide Mononitrate [Isosorbide Mononitrate ER] 60 mg PO DAILY 09/11/16 Rosuvastatin [Crestor*] 20 mg PO BEDTIME 09/11/16 Sevelamer Carbonate [Renvela*] 1 tab PO TIDWM 09/11/16 Cholecalciferol (Vitamin D3) [Vitamin D 5,000 IU Cap*] 5,000 unit PO DAILY 01/10/22 Docusate [Colace Cap*] 100 mg PO DAILY PRN 01/10/22 carvediloL [Coreg*] 25 mg PO BID 01/10/22 Estrogens,Conj [Premarin*] 0.9 mg PO DAILY 02/08/22 Ranitidine [Zantac*] 75 mg PO Q8H PRN 02/08/22 Travoprost [Travatan Z*] 1 drop OPTH BEDTIME 02/08/22 ramipriL [Altace*] 10 mg PO BEDTIME 02/08/22 Calcitrol [Rocaltrol*] 0.5 mcg PO DAILY #60 cap 02/09/22 Epoetin [Retacrit] 10,000 unit SQ M,W,F vial 02/09/22 Insulin Glargine,Hum.rec.anlog [Corie Novak] 35 units SQ DAILY #15 ml 02/09/22 Mannitol 25% [Mannitol*] 12.5 gm IV EVERY HD PRN vial 02/09/22 - Past Medical/Surgical History Diabetic: Yes -: ESRD, hypertension, Diabetes-IDDM -: high cholesterol, -: Anemia chronic disease -: bilateral eye surgery, hysterectomy -: tubal ligation, C- Section, left arm fistula Psychosocial/ Personal History: Lives at home with family - Family History mom -: Hypertension dad -: Diabetes - Social History Alcohol use: No CD- Drugs: No Caffeine use: No Review of Systems Other: Except as documented, all other systems reviewed and negative. Physical Examination - Physical Exam General: Alert, In no apparent distress, Oriented x3 HEENT: Atraumatic, PERRLA, Mucous membr. moist/pink, Sclerae nonicteric Neck: Supple, JVD not distended Respiratory: Clear to auscultation bilaterally, Normal air movement Cardiovascular: No edema, Regular rate/rhythm, Normal S1 S2, Systolic murmur Capillary refill: <2 Seconds Gastrointestinal: Normal bowel sounds, Soft and benign, Non-distended, No tenderness Musculoskeletal: No swelling, No tenderness Integumentary: No rashes, No erythema, No cyanosis Neurological: Normal speech, Normal strength at 5/5 x4 extr, Cranial nerves 3-12 intact Lymphatics: No axilla or inguinal lymphadenopathy - Studies Laboratory Data (last 24 hrs) 05/04/22 13:26: PT 11.9, INR 1.08 05/04/22 13:26: WBC 5.7, Hgb 10.9 L, Hct 33.5 L, Plt Count 167 05/04/22 13:26: Sodium 138, Potassium 4.3, BUN 24 H, Creatinine 4.89 H, Glucose 176 H, Magnesium 2.1, Total Bilirubin 0.5, AST 33, ALT 51, Alkaline Phosphatase 127 H Assessment and Plan - Problems (Diagnosis) (1) Hypotension Current Visit: Yes Status: Acute (2) Elevated troponin Current Visit: Yes Status: Acute (3) Diabetes mellitus type 2 in obese Current Visit: No Status: Acute (4) End-stage renal disease on hemodialysis Onset Date: 09/14/16 Current Visit: No Status: Chronic (5) Abdominal pain Current Visit: Yes Status: Acute - Plan Patient hospitalized for hypotension during hemodialysis. Hypotension resolved. Patient reported chronic abdominal pain. Status postcholecystectomy. She mentions she had an EGD done about 6 months ago, and was told her bowel lining was raw. I suspect she has duodenitis or GERD. Placed under observation. Monitor blood pressure closely Hold antihypertensives until patient is hypertensive. Nephrology consult Trend troponin Protonix and sucralfate for GERD/duodenitis Insulin sliding scale for glucose management. Reconcile and continue other home medications. - Advance Directives Does patient have a Living Will: No Does patient have a Durable POA for Healthcare: No
[2022-05-04] MEDS ORDERED: ACETAMINOPHEN 500 MG TAB PO PRN (17:04)
[2022-05-04] MEDS ORDERED: HEPARIN 5000 UNIT/ML 1 ML VIAL SQ SCH (18:00)
[2022-05-04] MEDS: SUCRALFATE 1GM/10ML UCUP PO SCH (21:00)
[2022-05-04] MEDS: INSULIN -REGULAR HUMAN 50 UNIT/0.5 ML ML SQ SCH (21:00)
[2022-05-05 00:34] VITALS: O2SAT 98
[2022-05-05 00:46] VITALS: BMI 33.0
[2022-05-05] MEDS: SUCRALFATE 1GM/10ML UCUP PO SCH ×2 (00:49→08:56)
[2022-05-05 03:52] LABS: Hematocrit 35.7 % (36.0-45.0); Lymphocytes % 18.7 % (15.3-44.8); MCV 91.8 fL (80-100); RBC Red Blood Cell Count 3.89 M/uL (3.86-4.86)
[2022-05-05 04:55] LABS: Magnesium 2.2 mg/dL (1.8-2.4); Phosphorus 4.6 mg/dL (2.5-4.9); Potassium 3.9 mmol/L (3.5-5.1); Thyroid Stimulating Hormone 1.38 uIU/mL (0.360-3.740)
[2022-05-05] MEDS ORDERED: MANNITOL 25% 12.5 GM/50 ML VIAL IV PRN (06:49)
[2022-05-05] MEDS ORDERED: NA CHLORIDE 0.9% 1,000 ML IV PRN (06:49)
[2022-05-05] MEDS ORDERED: ALBUMIN HUMAN 25% 50 ML IV SCH (07:00)
[2022-05-05] MEDS ORDERED: PANTOPRAZOLE 40MG TABLET PO SCH (07:30)
[2022-05-05] MEDS: INSULIN -REGULAR HUMAN 50 UNIT/0.5 ML ML SQ SCH (07:30)
[2022-05-05 09:02] VITALS: BP 131/72; TEMP 97.8
--- NOTE | 2022-05-05 10:04 | P.CNS ---
Date of Consult: 05/05/22 Reason for Consult: ESRD, volume management, recent hypotension Primary Care Provider: Frida Chief Complaint: Hypotension History of Present Illness: 61-year-old -Danish female with history of ESRD on HD, hypertension although not currently on meds she reports as she was at one point having intra dialytic hypotension, diabetes mellitus type 2insulin-dependent who yesterday presented to the emergency department due to hypotension towards the end of dialysis and some on going fatigue and weakness. She did incidentally test positive for COVID-19 and chest imaging did show some interstitial infiltrates but denies cough or dyspnea. She has been afebrile, she feels better today Allergies heparin Allergy (Verified 07/28/21 14:27) Hives Home Medications: Nifedipine [Adalat cc] 90 mg PO BID 02/11/16 Isosorbide Mononitrate [Isosorbide Mononitrate ER] 60 mg PO DAILY 09/11/16 Rosuvastatin [Crestor*] 20 mg PO BEDTIME 09/11/16 Sevelamer Carbonate [Renvela*] 1 tab PO TIDWM 09/11/16 Cholecalciferol (Vitamin D3) [Vitamin D 5,000 IU Cap*] 5,000 unit PO DAILY 01/10/22 Docusate [Colace Cap*] 100 mg PO DAILY PRN 01/10/22 carvediloL [Coreg*] 25 mg PO BID 01/10/22 Estrogens,Conj [Premarin*] 0.9 mg PO DAILY 02/08/22 Ranitidine [Zantac*] 75 mg PO Q8H PRN 02/08/22 Travoprost [Travatan Z*] 1 drop OPTH BEDTIME 02/08/22 ramipriL [Altace*] 10 mg PO BEDTIME 02/08/22 Calcitrol [Rocaltrol*] 0.5 mcg PO DAILY #60 cap 02/09/22 Epoetin [Retacrit] 10,000 unit SQ M,W,F vial 02/09/22 Insulin Glargine,Hum.rec.anlog [Touriccardo Solostar] 35 units SQ DAILY #15 ml 02/09/22 Mannitol 25% [Mannitol*] 12.5 gm IV EVERY HD PRN vial 02/09/22 - Past Medical/Surgical History Diabetic: Yes -: ESRD, hypertension, Diabetes-IDDM -: high cholesterol, -: Anemia chronic disease -: bilateral eye surgery, hysterectomy -: tubal ligation, C- Section, left arm fistula Psychosocial/ Personal History: Lives at home with family - Family History mom Medical History: Hypertension dad Medical History: Diabetes - Social History Alcohol use: No CD- Drugs: No Caffeine use: Yes Place of Residence: Home Review of Systems General: Unremarkable Eyes: Unremarkable ENT: Unremarkable Respiratory: Unremarkable Cardiovascular: Unremarkable Gastrointestinal: Unremarkable Genitourinary: Unremarkable Musculoskeletal: Unremarkable Integumentary: Unremarkable Neurological: Unremarkable Lymphatics: Unremarkable Physical Examination Temp Pulse Resp BP Pulse Ox 97.8 F 71 18 131/72 98 05/05/22 08:00 05/05/22 08:00 05/05/22 08:00 05/05/22 08:00 05/05/22 08:00 General: Alert, In no apparent distress, Oriented x3 HEENT: Atraumatic, Normocephalic, EOMI Neck: Supple Respiratory: Clear to auscultation bilaterally, Normal air movement Cardiovascular: No edema, Normal pulses, Regular rate/rhythm (Lt UE AVG, thrill and bruit present) Gastrointestinal: Normal bowel sounds, Soft and benign Musculoskeletal: No clubbing, No swelling, No contractures Integumentary: No rashes, No breakdown Neurological: Normal speech, Cranial nerves 3-12 intact, Normal reflexes 2+, Normal affect Laboratory Data (last 24 hrs) 05/04/22 13:26: PT 11.9, INR 1.08 05/04/22 13:26: WBC 5.7, Hgb 10.9 L, Hct 33.5 L, Plt Count 167 05/04/22 13:26: Sodium 138, Potassium 4.3, BUN 24 H, Creatinine 4.89 H, Glucose 176 H, Magnesium 2.1, Total Bilirubin 0.5, AST 33, ALT 51, Alkaline Phosphatase 127 H Conclusions/Impression: 1. ESRD 2. Hypotension 2nd to dialysis, resolved 3. Acute COVID-19 infection 4. Pulmonary edema, chronic -Completed HD yesterday, metab profile acceptable, no urgent indication to redialyze today. Next HD tmrw at her OP clinic -Largely asymptomatic COVID-19 infection, incidentally discovered, unclear if interstitial infiltrates seen are associated or represent some mild chronic pulm edema related to her renal failure +/- other. Pt will need to dialyze in the isolation room/shift at her unit and I have already contacted the [facility] clinic. -Hypotension resolved, orders given to dialysis unit to take measures to limit intra dialytic hypotension. Case discussed with Dr. Frida Harkins MD, [facility]
[2022-05-05] MEDS ORDERED: FENTANYL CITR 100 MCG/2 ML IV ONE (10:50)
--- NOTE | 2022-05-05 10:58 | P.DS ---
Admission Date: 05/04/22 Discharge Date: 05/05/22 Primary Care Provider: Frida Disposition: ROUTINE DISCHARGE Discharge Condition: FAIR Reason for Admission: Hypotension - Problems (1) Hypotension Status: Acute (2) Elevated troponin Status: Acute (3) Diabetes mellitus type 2 in obese Status: Acute (4) End-stage renal disease on hemodialysis Onset Date: 09/14/16 Status: Chronic (5) Abdominal pain Status: Acute Brief History of Present Illness: 61-year-old -Turk[place] woman with a history of end-stage renal disease, diabetes mellitus type 2 presented to the emergency department with generalized weakness. Patient states she developed hypotension during hemodialysis today and therefore had only 2 hours of dialysis instead of 3 hours. Patient was sent home but she continued to feel weak. She therefore presented to the emergency department. She was normotensive on arrival currently hypertensive during my examination in the ED. Patient reported the weakness is better. Nephrology Dr. Arora was contacted who recommended hospitalization under observation. Patient was also complaining of right upper quadrant pain worse with meals. Her troponin was mildly elevated which is likely secondary to reduced clearance due to ESRD. Patient was hospitalized for further evaluation and management. Hospital Course: Patient placed on observation on the medical floor. Her blood pressure was stable. Patient seen and evaluated by nephrology and started on IV fluid. She tested positive for COVID-19. Patient with a prior history of COVID-19 pneumonia. Checks x-ray demonstrated pulmonary edema. Patient was asymptomatic and tolerating room air with good oxygen saturation. Patient's blood pressure has been stable and deemed stable for discharge. Nephrology recommended to continue routine hemodialysis as an outpatient. She was complaining of right flank pain which is likely related to hepatomegaly and polycystic kidney as evidenced on the CT scan. This was managed with opioids during the hospital stay. Vital Signs/Physical Exam: Temp Pulse Resp BP Pulse Ox 97.8 F 71 18 131/72 98 05/05/22 10:21 05/05/22 08:00 05/05/22 08:00 05/05/22 08:00 05/05/22 08:00 General: Alert, In no apparent distress, Oriented x3 HEENT: Mucous membr. moist/pink Neck: JVD not distended Respiratory: Clear to auscultation bilaterally, Normal air movement Cardiovascular: No edema, Regular rate/rhythm, Normal S1 S2 Gastrointestinal: Normal bowel sounds, Soft and benign, Non-distended, Tenderness (Right lumbar area of abdomen) Musculoskeletal: No swelling Integumentary: No rashes Neurological: Normal strength at 5/5 x4 extr Laboratory Data at Discharge: WBC 5.2 K/uL (4.3-10.9) 05/05/22 03:11 Hgb 11.4 g/dL (12.0-15.0) L 05/05/22 03:11 Hct 35.7 % (36.0-45.0) L 05/05/22 03:11 Plt Count 186 K/uL (152-406) 05/05/22 03:11 PT 11.9 SECONDS (9.5-12.5) 05/04/22 13:26 INR 1.08 05/04/22 13:26 Sodium 136 mmol/L (136-145) 05/05/22 03:11 Potassium 3.9 mmol/L (3.5-5.1) 05/05/22 03:11 BUN 32 mg/dL (7-18) H 05/05/22 03:11 Creatinine 5.95 mg/dL (0.55-1.3) H* D 05/05/22 03:11 Glucose 211 mg/dL (74-106) H 05/05/22 03:11 Phosphorus 4.6 mg/dL (2.5-4.9) 05/05/22 03:11 Magnesium 2.2 mg/dL (1.8-2.4) 05/05/22 03:11 Total Bilirubin 0.5 mg/dL (0.2-1.0) 05/04/22 13:26 AST 33 U/L (15-37) 05/04/22 13:26 ALT 51 U/L (12-78) 05/04/22 13:26 Alkaline Phosphatase 127 U/L (45-117) H 05/04/22 13:26 Home Medications: Nifedipine [Adalat cc] 90 mg PO BID 02/11/16 Isosorbide Mononitrate [Isosorbide Mononitrate ER] 60 mg PO DAILY 09/11/16 Rosuvastatin [Crestor*] 20 mg PO BEDTIME 09/11/16 Sevelamer Carbonate [Renvela*] 1 tab PO TIDWM 09/11/16 Cholecalciferol (Vitamin D3) [Vitamin D 5,000 IU Cap*] 5,000 unit PO DAILY 01/10/22 Docusate [Colace Cap*] 100 mg PO DAILY PRN 01/10/22 carvediloL [Coreg*] 25 mg PO BID 01/10/22 Estrogens,Conj [Premarin*] 0.9 mg PO DAILY 02/08/22 Ranitidine [Zantac*] 75 mg PO Q8H PRN 02/08/22 Travoprost [Travatan Z*] 1 drop OPTH BEDTIME 02/08/22 ramipriL [Altace*] 10 mg PO BEDTIME 02/08/22 Calcitrol [Rocaltrol*] 0.5 mcg PO DAILY #60 cap 02/09/22 Epoetin [Retacrit] 10,000 unit SQ M,W,F vial 02/09/22 Insulin Glargine,Hum.rec.anlog [Toed Novak] 35 units SQ DAILY #15 ml 02/09/22 Mannitol 25% [Mannitol*] 12.5 gm IV EVERY HD PRN vial 02/09/22 Diet: Renal (ADA) Activity: Ad mary Followup: Wellington Arora DO [Primary Care Provider] -
--- NOTE | 2022-05-05 12:18 | EKG ---
Test Date: 2022-05-04 Test Time: 13:36:33 [employer]: ELDA MEASUREMENT RESULTS: Intervals: Rate: 66 AR: 180 QRSD: 90 QT: 416 QTc: 436 [place]: P: 28 AR: 180 QRS: 15 T: 214 INTERPRETIVE STATEMENTS: Normal sinus rhythm Minimal voltage criteria for LVH, may be normal variant T wave abnormality, consider inferolateral ischemia Abnormal ECG Compared to ECG 02/06/2022 23:59:13 T-wave abnormality now present Possible ischemia now present Early repolarization no longer present Electronically Signed On 05-05-22 12:17:08 CDT by Erasmo Carpenter
== END 2022-05-05 11:20 | disposition home or self-care (01) ==
LOC: ER 11:48 → ERHOLD 16:42 → 4TH 21:47
PROVIDERS: ADMIT Internal Medicine; ATTEND Internal Medicine
DX: I95.3 Hypotension of hemodialysis (principal); I12.0 Hypertensive chronic kidney disease with stage 5 chronic kidney disease or end stage renal disease; E11.22 Type 2 diabetes mellitus with diabetic chronic kidney disease; N18.6 End stage renal disease; Z99.2 Dependence on renal dialysis; U07.1 COVID-19; R10.11 Right upper quadrant pain; D63.8 Anemia in other chronic diseases classified elsewhere; R77.8 Other specified abnormalities of plasma proteins; R16.0 Hepatomegaly, not elsewhere classified; Q61.3 Polycystic kidney, unspecified; E78.00 Pure hypercholesterolemia, unspecified; H40.9 Unspecified glaucoma; E66.9 Obesity, unspecified; Z68.33 Body mass index [BMI] 33.0-33.9, adult; Z86.16 Personal history of COVID-19; Z79.4 Long term (current) use of insulin; Z79.899 Other long term (current) drug therapy; Z88.8 Allergy status to other drugs, medicaments and biological substances; Z90.710 Acquired absence of both cervix and uterus; Z90.49 Acquired absence of other specified parts of digestive tract; Z82.49 Family history of ischemic heart disease and other diseases of the circulatory system; Z83.3 Family history of diabetes mellitus
CPT/HCPCS: 93005; 85025 ×2; 80048 ×2; 36415; 83735 ×2; 84100; 85610; 82947 ×2; 80076; 84443; 84484 ×3; 83880; 74176; 71045; 97116; 97161; 94760; 99285; U0003; J1815; J3010; G0378 ×2